=== PATIENT | female | born 1945 | race Caucasian/White ===

== ENCOUNTER → 2016-03-29 | Outpatient (CLI) | payer BC ==
[2016-03-29 12:22] LABS: BASO ABS # 0.05 K/uL (0-0.2); COMPLETE YES; HEMATOCRIT 36.7 % (37-47); IG% 0.2 %; LYMPH % 22.7 %; LYMPH ABS # 1.19 K/uL (1.2-3.4); MEAN CELL VOLUME 94.8 fL (80-100); MEAN CORPUSCULAR HEMOGLOBIN 32.3 pg (25-34); MEAN CORPUSCULAR HGB CONC 34.1 g/dl (32-36); MEAN PLATELET VOLUME 11.4 fL (7.4-10.4); MONO % 7.4 %; NEUT % 65.7 %; PLATELET COUNT 238 K/uL (130-400); RED BLOOD COUNT 3.87 M/uL (4.2-5.4); WHITE BLOOD COUNT 5.25 K/uL (4.8-10.8)
[2016-03-29 13:16] LABS: ALT/SGPT 22 U/L (12-78); AST/SGOT 18 U/L (15-37); BLOOD UREA NITROGEN 18 mg/dl (7-18); BUN/CREATININE RATIO 24.3 (10-20); CALCIUM 8.7 mg/dl (8.5-10.1); CARBON DIOXIDE 24 mmol/L (21-32); CHLORIDE 107 mmol/L (98-107); CREATININE 0.75 mg/dl (0.60-1.20); GLUCOSE 92 mg/dl (70-99); POTASSIUM 3.4 mmol/L (3.5-5.1); SODIUM 141 mmol/L (136-145)
[2016-03-29 13:20] LABS: ALB/GLOB RATIO 1.1 (0.9-2); ALKALINE PHOSPHATASE 103 U/L (45-117); CHOLESTEROL 123 mg/dl (0-200); CHOLESTEROL/HDL RATIO 1.7; HDL CHOLESTEROL 71 mg/dl; LDL CHOLESTEROL CALCULATED 40 mg/dl; TRIGLYCERIDES 59 mg/dl (0-150); VERY LOW DENSITY LIPOPROT CALC 12 mg/dl
--- NOTE | 2016-04-05 06:53 | CODING QUERY MEDICAL NECESSITY ---
SUPPORTING DIAGNOSIS NEEDED A supporting diagnosis is required for the test/procedure performed on this patient in order for us to be reimbursed by the patient's insurance. Please provide a supporting diagnosis for the following test/procedure listed below next to the test name along with your signature. *If there is no additional diagnosis for this patient that would support the following test/procedure please document that below next to the test/procedure. Test(s)/Procedure(s) that require a supporting diagnosis: DOS 03/29 * Vitamin D DIAGNOSIS: Provider Signature: Date: Thank you Shantal Hui Health Information Management Once completed, please kindly fax back to [phone] For questions please call [phone]
== END | disposition home or self-care (01) ==
LOC: C.LABPVFM 08:07
PROVIDERS: ATTEND Family Medicine
DX: Z00.00 Encounter for general adult medical examination without abnormal findings (principal); I10 Essential (primary) hypertension; E78.00 Pure hypercholesterolemia, unspecified; E55.9 Vitamin D deficiency, unspecified

== ENCOUNTER → 2016-04-04 | Outpatient (CLI) | payer BC | END | disposition home or self-care (01) | LOC: C.LABPVFM 09:48 | PROVIDERS: ATTEND Family Medicine | DX: Z11.59 Encounter for screening for other viral diseases (principal) ==

== ENCOUNTER → 2016-06-05 | Outpatient (CLI) | payer BC ==
--- NOTE | 2016-06-06 10:57 | MAMMOGRAPHY REPORT ---
BILATERAL DIGITAL SCREENING MAMMOGRAM WITH CAD: 06/05/2016 CLINICAL HISTORY: Routine screening. Patient has no complaints. TECHNIQUE: Bilateral CC and MLO views were obtained. Current study was also evaluated with a Compu ter Aided Detection (CAD) system. COMPARISON: Comparison is made to exams dated: 06/03/2015 mammogram, 05/28/2013 mammogram, 06/01/2014 ma mmogram, 05/20/2012 mammogram, 05/18/2011 mammogram, and 05/17/2010 mammogram - [facility]. BREAST COMPOSITION: There are scattered areas of fibroglandular density in both breasts. FINDINGS: The parenchymal pattern is unchanged. No developing mass, architectural distortion or clu ster of suspicious microcalcifications is seen in either breast. IMPRESSION: ACR BI-RADS CATEGORY 2: BENIGN There is no mammographic evidence of malignancy. A 1 year screening mammogram is recommended. The p atient will receive written notification of the results. Approximately 10% of breast cancers are not detected with mammography. A negative mammographic repor t should not delay biopsy if a clinically suggestive mass is present. Kayley Hamm M.D. ay/:06/05/2016 16:14:09 Atmospheric Sciences Professor: Suzan SUTTON(Cheryl)(M), [facility] letter sent: Normal 1/2 BI-RADS Code: ACR BI-RADS Category 2: Benign
== END | disposition home or self-care (01) ==
LOC: C.MAMM 08:44
PROVIDERS: ATTEND Family Medicine
DX: Z12.31 Encounter for screening mammogram for malignant neoplasm of breast (principal)

== ENCOUNTER → 2016-09-28 | Outpatient (CLI) | payer BC ==
[2016-09-28 13:44] LABS: ALT/SGPT 22 U/L (12-78); AST/SGOT 20 U/L (15-37); BLOOD UREA NITROGEN 20 mg/dl (7-18); BUN/CREATININE RATIO 26.7 (10-20); CALCIUM 9.1 mg/dl (8.5-10.1); CARBON DIOXIDE 28 mmol/L (21-32); CHLORIDE 105 mmol/L (98-107); CHOLESTEROL 118 mg/dl (0-200); CREATININE 0.74 mg/dl (0.60-1.20); GLUCOSE 85 mg/dl (70-99); POTASSIUM 3.8 mmol/L (3.5-5.1); SODIUM 139 mmol/L (136-145); TRIGLYCERIDES 52 mg/dl (0-150); VERY LOW DENSITY LIPOPROT CALC 10 mg/dl
[2016-09-28 13:47] LABS: ALKALINE PHOSPHATASE 103 U/L (45-117); CHOLESTEROL/HDL RATIO 1.8; HDL CHOLESTEROL 66 mg/dl; LDL CHOLESTEROL CALCULATED 42 mg/dl
== END | disposition home or self-care (01) ==
LOC: C.LABPVFM 08:09
PROVIDERS: ATTEND Family Medicine
DX: I25.10 Atherosclerotic heart disease of native coronary artery without angina pectoris (principal); E78.00 Pure hypercholesterolemia, unspecified; I10 Essential (primary) hypertension; E87.6 Hypokalemia

== ENCOUNTER → 2017-04-04 | Outpatient (CLI) | payer BC ==
[2017-04-04 13:10] LABS: ALBUMIN 3.4 gm/dl (3.4-5.0); ALT/SGPT 20 U/L (12-78); BLOOD UREA NITROGEN 16 mg/dl (7-18); CALCIUM 8.8 mg/dl (8.5-10.1); CARBON DIOXIDE 29 mmol/L (21-32); CHOLESTEROL 126 mg/dl (0-200); GLUCOSE 90 mg/dl (70-99); POTASSIUM 3.7 mmol/L (3.5-5.1); SODIUM 137 mmol/L (136-145)
[2017-04-04 13:13] LABS: ALKALINE PHOSPHATASE 98 U/L (45-117); AST/SGOT 14 U/L (15-37); LDL CHOLESTEROL CALCULATED 52 mg/dl
== END | disposition home or self-care (01) ==
LOC: C.LABPVFM 08:03
PROVIDERS: ATTEND Family Medicine
DX: I10 Essential (primary) hypertension (principal); I34.0 Nonrheumatic mitral (valve) insufficiency; E78.00 Pure hypercholesterolemia, unspecified; I25.10 Atherosclerotic heart disease of native coronary artery without angina pectoris; E87.6 Hypokalemia

== ENCOUNTER → 2017-06-06 | Outpatient (CLI) | payer BC ==
--- NOTE | 2017-06-06 15:36 | MAMMOGRAPHY REPORT ---
BILATERAL DIGITAL SCREENING MAMMOGRAM TOMOSYNTHESIS WITH CAD: 06/06/2017 CLINICAL HISTORY: Routine screening. TECHNIQUE: Breast tomosynthesis in addition to standard 2D mammography was performed. Current study was also evaluated with a Computer Aided Detection (CAD) system. COMPARISON: Comparison is made to exams dated: 06/05/2016 mammogram, 06/03/2015 mammogram, 06/01/2014 ma mmogram, 05/28/2013 mammogram, 05/20/2012 mammogram, and 05/18/2011 mammogram - [facility]. BREAST COMPOSITION: There are scattered areas of fibroglandular density in both breasts. FINDINGS: No suspicious masses, calcifications, or areas of architectural distortion are noted in ei ther breast. There has been no significant interval change compared to prior exams. IMPRESSION: ACR BI-RADS CATEGORY 1: NEGATIVE There is no mammographic evidence of malignancy. A 1 year screening mammogram is recommended. The pa tient will receive written notification of the results. Approximately 10% of breast cancers are not detected with mammography. A negative mammographic report should not delay biopsy if a clinically suggestive mass is present. Jordana Wilcox M.D. ah/:06/06/2017 12:05:26 Instructional Writer: Mario SUTTON(Cheryl)(M), [facility] letter sent: Normal 1/2 BI-RADS Code: ACR BI-RADS Category 1: Negative
== END | disposition home or self-care (01) ==
LOC: C.MAMM 10:32
PROVIDERS: ATTEND Family Medicine
DX: Z12.31 Encounter for screening mammogram for malignant neoplasm of breast (principal)

== ENCOUNTER → 2017-11-08 | Outpatient (CLI) | payer BC ==
[~2017-11-08] MED LIST: BIMA0.01 OPB; CALC600T9 PO; CHOL20009 PO; DOCU100C PO; HYG/25 PO; LISI40TA PO; METO25TA56 PO; OMEG10007 PO; POTA10CA28 PO; SIMV80TA2 PO; TIMO0.2518 OPB
== END | disposition home or self-care (01) ==
LOC: C.MAMM 09:59
PROVIDERS: ATTEND Family Medicine
DX: I25.10 Atherosclerotic heart disease of native coronary artery without angina pectoris (principal); M81.0 Age-related osteoporosis without current pathological fracture

== ENCOUNTER → 2017-11-09 | Day surgery (SDC) | payer BC ==
[2017-11-06 08:36] VITALS: Ht 162.6 cm; Wt 68.2 kg
[~2017-11-09] VITALS: Ht 162.6 cm; Wt 68.2 kg
[~2017-11-09] MED LIST changes: +LIDOCAINE HCL 2% 2 ML VIAL (20MG/ML) ONE; +MIDAZOLAM HCL 1 MG/ML 2ML VIAL ONE; +ONDANSETRON INJ 2 MG/ML 2 ML VIAL ONE; +PROPOFOL IV EMULSION 10 MG/ML 20 ML VIAL ONE; +SODIUM CHLORIDE 0.9% 500ML 500 ML IV ONE
--- NOTE | 2017-11-09 09:18 | Endo History and Physical ---
History & Physical Date of Service: Nov 09, 2017. Chief Complaint: Screening Referring Physician: Dr. Lena Dias History of Present Illness 72 yo CF who presents for screening colonoscopy. Past Surgical History Hx Cardiac Surgery: Yes (HEART CATH/NO STENTS) Hx Internal Defibrillator: No Hx Pacemaker: No Hx Abdominal Surgery: No Hx of Implantable Prosthesis: No Hx Post-Op Nausea and Vomiting: No Hx Cancer Surgery: No Hx Thoracic Surgery: No Hx Orthopedic: No Hx Urinary Tract Surgery: No Family History None Social History Smoking Status: Never Smoker Hx Substance Use: No Hx Alcohol Use: No Allergies Coded Allergies: NO KNOWN DRUG ALLERGIES (Verified Allergy, Unknown, ., 11/06/17) Current Medications Reported Home Medications Medications Dose Route/Sig Max Daily Dose Days Date Category Micro-K Ext Rel (Potassium Chloride) 10 Meq Capcr 10 Meq PO QPM 11/06/17 Reported [place]-3 (Fish Oil) 1 Ea Cap 1 Cap PO QPM 11/06/17 Reported Vitamin D (Cholecalciferol) 2,000 Unit Tab 1 Tab PO QAM 11/06/17 Reported Timoptic 0.25% Oph (Timolol Maleate (Ophth)) 0.25 % Monica 1 Drop OPB BID 11/06/17 Reported Lumigan (Bimatoprost) 0.01 % Monica 1 Drops OPB HS 11/06/17 Reported Zocor (Simvastatin) 80 Mg Tab 80 Mg PO HS 11/06/17 Reported Lopressor (Metoprolol Tartrate) 25 Mg Tab 25 Mg PO BID 11/06/17 Reported Prinivil (Lisinopril) 40 Mg Tab 40 Mg PO HS 11/06/17 Reported [place] (Chlorthalidone) 25 Mg Tab 0.5 Tab PO QAM 11/06/17 Reported Stool Softener (Docusate Sodium) 100 Mg Cap 1 Cap PO QAM 11/06/17 Reported Calcium + D (Calcium Carbonate-Vitamin D) 1 Tab Tab 1 Tab PO QAM 11/06/17 Reported Vital Signs Weight (Kilograms): 68.18 Height (Feet): 5 Height (Inches): 4 Date Time Temp Pulse Resp B/P (MAP) Pulse Ox O2 Delivery O2 Flow Rate FiO2 11/09/17 08:58 36.1 66 16 148/70 (96) 100 Room Air Physical Exam General Appearance: WD/WN, no apparent distress Respiratory/Chest: Auscultation: breath sounds normal Cardiovascular: Heart Auscultation: RRR Abdomen: Bowel Sounds: normal Inspection & Palpation: soft, non-distended, no tenderness, guarding & rebound Assessment and Plan Assessment: 72 yo CF who presents for screening colonoscopy. Plan: Proceed with colonoscopy.
--- NOTE | 2017-11-09 09:51 | Discharge Instructions ---
Endoscopy Patient Instructions Date / Procedure(s) Performed Nov 09, 2017. Colonoscopy Allergy Information Coded Allergies: NO KNOWN DRUG ALLERGIES (Verified Allergy, Unknown, ., 11/06/17) Discharge Date / Findings Nov 09, 2017. Colon polyp Internal hemorrhoids Medication Instructions Stopped Medication(s): Patient was told to take her metoprolol and timolol eye drops this am. OK to resume all medications today as prescribed Reported Home Medications Medications Dose Route/Sig Max Daily Dose Days Date Category Micro-K Ext Rel (Potassium Chloride) 10 Meq Capcr 10 Meq PO QPM 11/06/17 Reported [place]-3 (Fish Oil) 1 Ea Cap 1 Cap PO QPM 11/06/17 Reported Vitamin D (Cholecalciferol) 2,000 Unit Tab 1 Tab PO QAM 11/06/17 Reported Timoptic 0.25% Oph (Timolol Maleate (Ophth)) 0.25 % Monica 1 Drop OPB BID 11/06/17 Reported Lumigan (Bimatoprost) 0.01 % Monica 1 Drops OPB HS 11/06/17 Reported Zocor (Simvastatin) 80 Mg Tab 80 Mg PO HS 11/06/17 Reported Lopressor (Metoprolol Tartrate) 25 Mg Tab 25 Mg PO BID 11/06/17 Reported Prinivil (Lisinopril) 40 Mg Tab 40 Mg PO HS 11/06/17 Reported [place] (Chlorthalidone) 25 Mg Tab 0.5 Tab PO QAM 11/06/17 Reported Stool Softener (Docusate Sodium) 100 Mg Cap 1 Cap PO QAM 11/06/17 Reported Calcium + D (Calcium Carbonate-Vitamin D) 1 Tab Tab 1 Tab PO QAM 11/06/17 Reported Provider Instructions Activity Restrictions - No exercising or heavy lifting for 24 hours. - Do not drink alcohol the day of the procedure. - Do not drive a car or operate machinery until the day after the procedure. - Do not make any important decisions or sign important papers in 24 hours after the procedure. Following Day: - Return to full activity which may include returning to work/school. Diet Start your diet with liquids and light foods (jello, soup, juice, toast). Then eat your usual diet if not nauseated. Treatment For Common After Affects For mild abdominal pain, bloating, or excessive gas: - Rest - Eat lightly - Lie on right side Follow-Up Information Follow-up with Dr. Lena Dias as scheduled Anesthesia Information What You Should Know You have had a procedure that required some medicine to reduce anxiety and discomfort. This treatment is called moderate sedation. After receiving the treatment, you may be sleepy, but you will be able to breathe on your own. The effects of the treatment may last for several hours. Follow these instructions along with Activity/Diet recommendations noted above: * Do NOT do anything where dizziness or clumsiness would be dangerous. * Rest quietly at home today, then you can be up and about tomorrow. * Have a responsible person stay with you the rest of today. * You may have had an I.V. today. If so, you may take the dressing off later today. Recommendations Call your doctor if: * Trouble breathing * Continuous vomiting for more than 24 hours * Temperature above 101 degrees * Severe abdominal pain or bloating * Pain not relieved by pain medicine ordered * There is increased drainage or redness from any incision * A large amount of rectal bleeding greater than 2-3 tablespoons. (If you had a polyp/s removed or have hemorrhoids, a small amount of blood - from the rectum is to be expected.) * You have any unanswered questions or concerns. IN THE EVENT OF A SERIOUS EMERGENCY, GO TO THE NEAREST EMERGENCY ROOM Your discharge instructions were prepared by provider Malick Knowles. Patient Instructions Signature Page Maribell Reveles Patient (or Guardian) Signature/Date: I have read and understand the instructions given to me by my caregivers. Caregiver/RN/Doctor Signature/Date: The above-named patient and/or guardian has received patient instructions on this date. + Original Patient Signature Page (only) stays with chart. Please make copy for patient.
--- NOTE | 2017-11-09 09:57 | GI REPORT ---
Patient Name: Maribell Reveles Procedure Date: 11/09/2017 9:00 AM Date of : 1945 Admit Type: Outpatient Age: 72 Gender: Female Attending MD: Malick Knowles DO Procedure: Colonoscopy Providers: Malick Knowles DO Referring MD: Lena Dias Indications: Screening for colorectal malignant neoplasm Medicines: Monitored Anesthesia Care Complications: No immediate complications. Estimated Blood Loss: Estimated blood loss: none. Procedure: Pre-Anesthesia Assessment: - Prior to the procedure, a History and Physical was performed, and patient medications and allergies were reviewed. The patient's tolerance of previous anesthesia was also reviewed. The risks and benefits of the procedure and the sedation options and risks were discussed with the patient. All questions were answered, and informed consent was obtained. Prior Anticoagulants: The patient has taken no previous anticoagulant or antiplatelet agents. ASA Grade Assessment: II - A patient with mild systemic disease. After reviewing the risks and benefits, the patient was deemed in satisfactory condition to undergo the procedure. After I obtained informed consent, the scope was passed under direct vision. Throughout the procedure, the patient's blood pressure, pulse, and oxygen saturations were monitored continuously. The scope was introduced through the anus and advanced to the terminal ileum. The colonoscopy was performed without difficulty. The patient tolerated the procedure well. The quality of the bowel preparation was good. The terminal ileum, ileocecal valve, appendiceal orifice, and rectum were photographed. Findings: The perianal and digital rectal examinations were normal. A 5 mm polyp was found in the sigmoid colon. The polyp was sessile. The polyp was removed with a cold snare. Resection and retrieval were complete. Non-bleeding internal hemorrhoids were found during retroflexion. The hemorrhoids were small. Impression: - One 5 mm polyp in the sigmoid colon, removed with a cold snare. Resected and retrieved. - Non-bleeding internal hemorrhoids. Recommendation: - Resume previous diet. - Continue present medications. - Repeat colonoscopy for surveillance based on pathology results. - Return to primary care physician as previously scheduled. Malick Knowles DO 11/09/2017 9:56:39 AM This report has been signed electronically. Note Initiated On: 11/09/2017 9:00 AM Number of Addenda: 0 I attest to the content of the Intraoperative Record and orders documented therein, exceptions below {[id number]}
--- NOTE | 2017-11-09 10:06 | Anesthesiology Progress Note ---
Anesthesia Post Op Note Date & Time Nov 09, 2017 at 10:06 Vital Signs Pain Intensity: 0 Vital Signs Past 12 Hours Date Time Temp Pulse Resp B/P (MAP) Pulse Ox O2 Delivery O2 Flow Rate FiO2 11/09/17 09:49 65 16 96/51 (66) 98 Room Air 11/09/17 08:58 36.1 66 16 148/70 (96) 100 Room Air Notes Mental Status: alert / awake / arousable, participated in evaluation Pt Amnestic to Procedure: Yes Nausea / Vomiting: adequately controlled Pain: adequately controlled Airway Patency, RR, SpO2: stable & adequate BP & HR: stable & adequate Hydration State: stable & adequate Anesthetic Complications: no major complications apparent
[2017-11-09 10:19] VITALS: BP 132/72; PULSE 63; O2SAT 98
== END | disposition home or self-care (01) ==
LOC: C.GI 08:32
PROVIDERS: ATTEND Internal Medicine
DX: Z12.11 Encounter for screening for malignant neoplasm of colon (principal); D12.5 Benign neoplasm of sigmoid colon; K64.8 Other hemorrhoids; H40.9 Unspecified glaucoma

== ENCOUNTER 2019-11-02 07:16 | Inpatient (IN) ==
[2019-11-02] MEDS ORDERED: NITROGLYCERIN SL 0.4 MG/TAB TAB SL PRN (07:31)
--- NOTE | 2019-11-02 07:35 | Emergency Department Note ---
History of Present Illness General Chief complaint: Respiratory Problems Stated complaint: HARD TO BREATHE Time Seen by Provider: 11/02/19 07:25 Source: patient History of Present Illness Provider complaint: chest pain Onset (ago): day(s) 1 Location: chest Severity: mild Pain Consistency: + intermittent Maximum Pain Intensity: 2 Current Pain Intensity: 2 Quality: + aching Relieved By: + immobilization and + medication (Nitro) Exacerbated By: + movement Associated symptoms: + denies other symptoms; no diaphoresis, no fever/chills, no loss of appetite, no nausea/vomiting and no shortness of breath Treatments prior to arrival: none This is a 74-year-old female who presents emergency department complaining of shortness of breath as well as chest pain that gets worse when the patient walks. She reports resting makes the pain better. She describes the pain as a pressure sensation that radiates into her left arm. She has no other complaints. The patient reports she was just started on Lasix and also takes Eliquis. Home Medications Home Medications Medication Instructions Recorded Confirmed Type nitroglycerin 0.4 mg sublingual 0.4 mg SL UD PRN #25 tab 09/09/18 11/02/19 History tablet timolol maleate 0.25 % eye drops 1 drp OPB QAM ml 10/01/18 11/02/19 History apixaban [Eliquis] 5 mg PO BID 03/22/19 11/02/19 History metoprolol tartrate 25 mg PO QAM 03/22/19 11/02/19 History bimatoprost [Lumigan] 1 drp OPB DAILY@2300 11/02/19 11/02/19 History calcium carbonate-vitamin D3 1 tab PO QAM 11/02/19 11/02/19 History [Calcium 500 + D] docusate sodium [Colace] 100 mg PO QAM 11/02/19 11/02/19 History furosemide 20 mg PO MOTUWETHFR 11/02/19 11/02/19 History lisinopril 40 mg PO DAILY@1700 11/02/19 11/02/19 History potassium chloride 20 meq PO HS 11/02/19 11/02/19 History simvastatin 80 mg PO HS 11/02/19 11/02/19 History Allergies Allergy/AdvReac Type Severity Reaction Status Date / Time No Known Drug Allergies Allergy Unknown . Verified 11/02/19 07:53 Past Med/Surg History Medical History Atrial fibrillation (Chronic) CAD S/P percutaneous coronary angioplasty (Chronic) Coronary artery disease of bypass graft of [place] heart with stable angina pectoris Hypercholesterolemia (Chronic) Hypertension (Chronic) Hypokalemia (Chronic) Mitral regurgitation (Acute) Family History Mother Heart disease Hypertension Father Heart disease Hypertension Denies family history of Ovarian cancer Prostate cancer Myocardial infarction Breast cancer Colorectal cancer Social History Smoking Status: Never smoker Hx Alcohol Use: No Hx Substance Use: No Preferred Language: Sudanese Communication Ability: Effective Public Space Attendant Required: No Beliefs That Will Affect Care: None marital status: Current Living Situation: Family Current Living Situation Comment: LIVES WITH SON current occupational status: retired Other Information That Helps Us Care for You: No Feels Safe at Home: Yes Safety Concerns: Feels Safe At This Time Dental Care, Regularly: Yes Seatbelt Use: always Review of Systems A total of 10 systems reviewed and were otherwise negative Physical Exam Vital Signs Vital Signs - 24 hr 11/02/19 07:16 11/02/19 07:20 11/02/19 07:32 Temperature 36.9 C Temperature Source Oral Pulse Rate 128 H Pulse Rate from SpO2 Sensor Respiratory Rate 20 Respiratory Effort / Characteristics Non-Labored Respiratory Depth Normal Respiratory Pattern Blood Pressure 143/86 H Blood Pressure Mean 105 Pulse Oximetry 96 97 96 Oxygen Delivery Method Room Air Room Air Room Air Sepsis Recent Fever Within 48 Hours No Sepsis New/Unexplained Change in Mental Status No Sepsis Action Taken by Nursing No Action Required 11/02/19 07:33 11/02/19 07:45 11/02/19 07:48 Temperature Temperature Source Pulse Rate 113 H 123 H Pulse Rate from SpO2 Sensor Respiratory Rate 23 Respiratory Effort / Characteristics Non-Labored Respiratory Depth Normal Respiratory Pattern Regular Blood Pressure 124/101 H Blood Pressure Mean Pulse Oximetry Oxygen Delivery Method Room Air Sepsis Recent Fever Within 48 Hours Sepsis New/Unexplained Change in Mental Status Sepsis Action Taken by Nursing 11/02/19 07:49 11/02/19 07:50 11/02/19 08:00 Temperature Temperature Source Pulse Rate 110 H 124 H 105 H Pulse Rate from SpO2 Sensor 108 H 114 H 109 H Respiratory Rate 21 21 25 H Respiratory Effort / Characteristics Respiratory Depth Respiratory Pattern Blood Pressure 124/101 H 130/117 H 129/82 Blood Pressure Mean 107 125 102 Pulse Oximetry 97 97 96 Oxygen Delivery Method Sepsis Recent Fever Within 48 Hours Sepsis New/Unexplained Change in Mental Status Sepsis Action Taken by Nursing 11/02/19 08:01 11/02/19 08:15 11/02/19 08:30 Temperature Temperature Source Pulse Rate 117 H 91 H 92 H Pulse Rate from SpO2 Sensor 106 H 106 H 94 H Respiratory Rate 25 H 20 16 Respiratory Effort / Characteristics Respiratory Depth Respiratory Pattern Blood Pressure 128/92 Blood Pressure Mean 98 Pulse Oximetry 96 97 97 Oxygen Delivery Method Sepsis Recent Fever Within 48 Hours Sepsis New/Unexplained Change in Mental Status Sepsis Action Taken by Nursing 11/02/19 08:31 Temperature Temperature Source Pulse Rate 108 H Pulse Rate from SpO2 Sensor 99 H Respiratory Rate 18 Respiratory Effort / Characteristics Respiratory Depth Respiratory Pattern Blood Pressure Blood Pressure Mean Pulse Oximetry 97 Oxygen Delivery Method Sepsis Recent Fever Within 48 Hours Sepsis New/Unexplained Change in Mental Status Sepsis Action Taken by Nursing VITAL SIGNS - Vital signs and nursing notes were reviewed. GENERAL - 74-year-old female appearing stated age who is in no acute distress. Communicates well with provider and answers questions appropriately. SKIN - Without rashes. HEAD - NC/AT. EYES - PERRL with EOMI bilaterally. Sclera anicteric. Palpebral conjunctiva pink and moist with no injection noted. EARS - No deformities of external structures noted on gross examination bilaterally. No pain elicited with palpation of the tragus bilaterally. External auditory canals without discharge or otorrhea. Tympanic membranes pearly angeles without retraction or bulging. No fluid or purulent material visualized behind the TM. Handle of malleus, umbo, cone of light, pars tensa/flaccid all easily visualized. NOSE - Midline and without cyanosis. No epistaxis or purulent drainage noted. S eptum midline without deviation or septal hematoma noted. MOUTH/OROPHARYNX - Without perioral cyanosis. Buccal mucosa pink and moist and without leukoplakia. Tongue midline with equal elevation of palate bilaterally. No tonsillar hypertrophy, erythema, or exudates noted. dentition noted. NECK - Neck with FROM. Supple to palpation. lymphadenopathy noted. No nuchal rigidity. LUNGS - Chest wall symmetric without accessory muscle use, intercostals retractions, or central cyanosis. Normal vesicular breath sounds CTA B/L. No wheezes, rales, or rhonchi appreciated. CARDIAC - RRR with S1/S2. No murmur, rubs, or gallops appreciated. ABDOMEN - Abdominal contour without pulsations or visible masses. BS normoactive all four quadrants. No tenderness, palpable masses, hepatosplenomegaly, or ascites noted. EXTREMITIES - No clubbing or peripheral cyanosis. No pretibial edema present. +3/5 radial, posterior tibial, and dorsalis pedis pulses palpated throughout. +5/5 strength noted in UE/LE bilaterally. NEUROLOGIC - Cranial nerves II through XII grossly intact. Sensory intact to light touch throughout. Patellar reflexes +2/4. PSYCH - A&Ox3 and cooperates fully with examiner. Pt is very pleasant and interacts well with examiner. Course Administered Medications Docusate Sodium (Colace) 100 mg PO [facility] Stop: 12/02/19 09:59 Last Admin: 11/02/19 11:24 Dose: Not Given Documented by: [id number] Multivitamins/Minerals (Caltrate Plus) 1 tab PO [facility] Stop: 12/02/19 09:59 Last Admin: 11/02/19 11:23 Dose: Not Given Documented by: [id number] Nitroglycerin (Nitro-Bid 2%) 1 inch EXT Q6H [facility] Stop: 12/02/19 08:14 Last Admin: 11/02/19 08:20 Dose: 1 inch Documented by: [id number] Timolol Maleate (Timoptic-Xe 0.5% Oph) 1 drops OPB [facility] Stop: 12/02/19 09:59 Last Admin: 11/02/19 11:24 Dose: Not Given Documented by: [id number] Discontinued Medications Furosemide (Lasix) 40 mg IV NOW STA Stop: 11/02/19 08:29 Last Admin: 11/02/19 09:21 Dose: 40 mg Documented by: [id number] Magnesium Sulfate/Dextrose (Magnesium Sulfate / D5w) 1 gm in 100 mls @ 200 mls/hr IV Q30M [facility] Stop: 11/02/19 08:35 Last Infusion: 11/02/19 08:50 Dose: 0 mls/hr Documented by: [id number] Admin: 11/02/19 08:20 Dose: 200 mls/hr Documented by: [id number] Infusion: 11/02/19 08:19 Dose: 200 mls/hr Documented by: [id number] Admin: 11/02/19 07:49 Dose: 200 mls/hr Documented by: [id number] Magnesium Sulfate/Dextrose (Magnesium Sulfate / D5w) 1 gm in 100 mls @ 200 mls/hr IV Q30M [facility] Stop: 11/02/19 08:36 Last Infusion: 11/02/19 10:01 Dose: 0 mls/hr Documented by: [id number] Admin: 11/02/19 09:20 Dose: 200 mls/hr Documented by: [id number] Infusion: 11/02/19 09:20 Dose: 200 mls/hr Documented by: [id number] Admin: 11/02/19 08:50 Dose: 200 mls/hr Documented by: [id number] Metoprolol Tartrate (Lopressor) 5 mg IV Q5M PRN PRN Reason: Tachycardia Stop: 12/02/19 07:35 Last Admin: 11/02/19 07:48 Dose: 5 mg Documented by: [id number] Metoprolol Tartrate (Lopressor) 50 mg PO QAM [facility] Stop: 12/02/19 09:59 Last Admin: 11/02/19 11:02 Dose: Not Given Documented by: [id number] Nitroglycerin (Nitrostat) 0.4 mg SL UD PRN PRN Reason: Chest Pain Stop: 12/02/19 07:30 Last Admin: 11/02/19 07:48 Dose: 0.4 mg Documented by: [id number] Medical Decision Making Differential Diagnosis Cardiac ischemia, aortic dissection, pulmonary embolism, pneumothorax, pneumonia, pericarditis, myocarditis, esophageal rupture, GERD, cholecystitis, pancreatitis, musculoskeletal, as well as other pathologies. Medical Records Attestation: I reviewed the patient's medical records. Home Medications Current Medication List: was personally reviewed by me Laboratory Data Attestation: I reviewed the patient's lab results. Result diagrams: 11/02/19 07:40 11/02/19 07:40 Lab Results 11/02/19 11/02/19 11/02/19 Range/Units 07:40 07:40 07:40 WBC 8.59 (4.8-10.8) K/uL RBC 3.70 L (4.2-5.4) M/uL Hgb 11.0 L (12.0-16.0) g/dL Hct 33.5 L (37-47) % MCV 90.5 (80-100) fL MCH 29.7 (25-34) pg MCHC 32.8 (32-36) g/dL RDW Std Deviation 42.2 (36.4-46.3) fL RDW Coeff of Alyssa 12.8 (11.5-14.5) % Plt Count 315 (130-400) K/uL MPV 11.0 H (7.4-10.4) fL Immature Gran % (Auto) 0.1 % Neut % (Auto) 79.2 % Lymph % (Auto) 13.4 % Dewitt % (Auto) 5.5 % Eos % (Auto) 1.3 % Baso % (Auto) 0.5 % Neut # (Auto) 6.81 H (1.4-6.5) K/uL Lymph # (Auto) 1.15 L (1.2-3.4) K/uL Dewitt # (Auto) 0.47 (0.11-0.59) K/uL Eos # (Auto) 0.11 (0-0.5) K/uL Baso # (Auto) 0.04 (0-0.2) K/uL Immature Gran # (Auto) 0.01 (0.00-0.02) K/uL PT 11.4 (9.0-12.0) Seconds INR 1.1 (0.9-1.1) APTT 28.9 (21.0-31.0) Seconds PTT Ratio 1.0 Sodium 139 (136-145) mmol/L Potassium 4.6 (3.5-5.1) mmol/L Chloride 109 H (98-107) mmol/L Carbon Dioxide 24 (21-32) mmol/L Anion Gap 5.0 (3-11) BUN 27 H (7-18) mg/dl Creatinine 0.98 (0.6-1.2) mg/dl Est Cr Clr Drug Dosing 47.7 ml/min Est GFR ( Amer) 65.9 Est GFR (Non-Af Amer) 56.8 BUN/Creatinine Ratio 27.0 H (10-20) Glucose 111 H (70-99) mg/dl Calcium 9.2 (8.5-10.1) mg/dl Total Bilirubin 0.7 (0.2-1) mg/dl AST 35 (15-37) U/L ALT 36 (12-78) U/L Alkaline Phosphatase 90 (45-117) U/L Total Creatine Kinase 69 (26-192) U/L CK-MB (CK-2) 1.8 (0.5-3.6) ng/ml CK/CKMB % Calc 2.6 (0-3.0) Troponin I 0.048 H* (0-0.045) ng/ml NT-Pro-B Natriuret Pep (0-900) pg/ml Total Protein 6.9 (6.4-8.2) gm/dl Albumin 3.5 (3.4-5.0) gm/dl Globulin 3.4 (2.5-4.0) gm/dl Albumin/Globulin Ratio 1.0 (0.9-2) Lipase 141 (73-393) U/L 11/02/19 Range/Units 07:40 WBC (4.8-10.8) K/uL RBC (4.2-5.4) M/uL Hgb (12.0-16.0) g/dL Hct (37-47) % MCV (80-100) fL MCH (25-34) pg MCHC (32-36) g/dL RDW Std Deviation (36.4-46.3) fL RDW Coeff of Alyssa (11.5-14.5) % Plt Count (130-400) K/uL MPV (7.4-10.4) fL Immature Gran % (Auto) % Neut % (Auto) % Lymph % (Auto) % Dewitt % (Auto) % Eos % (Auto) % Baso % (Auto) % Neut # (Auto) (1.4-6.5) K/uL Lymph # (Auto) (1.2-3.4) K/uL Dewitt # (Auto) (0.11-0.59) K/uL Eos # (Auto) (0-0.5) K/uL Baso # (Auto) (0-0.2) K/uL Immature Gran # (Auto) (0.00-0.02) K/uL PT (9.0-12.0) Seconds INR (0.9-1.1) APTT (21.0-31.0) Seconds PTT Ratio Sodium (136-145) mmol/L Potassium (3.5-5.1) mmol/L Chloride (98-107) mmol/L Carbon Dioxide (21-32) mmol/L Anion Gap (3-11) BUN (7-18) mg/dl Creatinine (0.6-1.2) mg/dl Est Cr Clr Drug Dosing ml/min Est GFR ( Amer) Est GFR (Non-Af Amer) BUN/Creatinine Ratio (10-20) Glucose (70-99) mg/dl Calcium (8.5-10.1) mg/dl Total Bilirubin (0.2-1) mg/dl AST (15-37) U/L ALT (12-78) U/L Alkaline Phosphatase (45-117) U/L Total Creatine Kinase (26-192) U/L CK-MB (CK-2) (0.5-3.6) ng/ml CK/CKMB % Calc (0-3.0) Troponin I (0-0.045) ng/ml NT-Pro-B Natriuret Pep 3524 H (0-900) pg/ml Total Protein (6.4-8.2) gm/dl Albumin (3.4-5.0) gm/dl Globulin (2.5-4.0) gm/dl Albumin/Globulin Ratio (0.9-2) Lipase (73-393) U/L Imaging Data Radiologist's Impression: [facility], [place] [phone] XRay Report Patient: DAVONTE ABREU EAdmit Date: 11/02/19 MR#: [id number] [facility] Acct ID:[id number]: Date: [address] [place] [address] Zip: [place] [address] Age: 74Location: ED Sex: F Room/Bed: Att Phy:Diagnosis: HARD TO BREATHE Emiliana Phy: Pascale Guevara MDService Date: 11/02/19 Fam Phy:Interpreting Phy: Jean Claude Arroyo MD Admit Phy: Ordering Phy: Joel Eduardo MD cc: ~ XR chest 1V portable CLINICAL HISTORY: Chest Pain dyspnea COMPARISON STUDY: 03/22/2019 Findings: Moderate cardiomegaly. Prior median sternotomy. Prominent pulmonary vasculature. IMPRESSION: Congestive heart failure ACT 112: Negative or not required by law. The above report was generated using voice recognition software. It may contain grammatical, syntax or spelling errors. Electronically signed by: Jean Claude Arroyo M.D. 11/02/2019 8:26 AM Dictated: 11/02/19823 Transcribed: 11/02/19823 ECG Data Attestation: I personally reviewed and interpreted this ECG as follows: Indication: + chest pain Rate (beats per minute): 115 Rhythm: + atrial fibrillation (w RVR) ECG [place]: + Left axis deviation ECG ST segments: no ST depression and no ST elevation ECG Findings: + Q waves (Septal) Comparison ECG Date: from (03/22/2019) Change: the following changes noted (afib has replaced NSR) MDM Narrative This is a 74-year-old female who presents emergency department complaining of chest pain. Patient was given nitro here in the emergency department with improvement in her symptoms. She does appear to be slightly volume overloaded on chest x-ray therefore he was started on Lasix. She was also given 4 g of magnesium here in the emergency department. She is on Eliquis. Her troponin was found to be elevated I did discuss the case with the hospitalist service who did agree to admit the patient. Patient and family are in agreement with treatment plan. Patient was seen and evaluated as above in room A10. Review was performed of nursing notes and vital signs. I did review pertinent previous visits and patient history. After obtaining a thorough history and physical examination the above work up was performed. An order was placed for continuous cardiac monitoring. The monitor shows a rate of 106 with Atrial Fib rhythm. The patient was evaluated during the global COVID-19 pandemic, and that diagnosis was suspected/considered upon their initial presentation. Their evaluation, treatment and testing was consistent with current guidelines for patients who present with complaints or symptoms that may be related to COVID- 19. Impression & Plan Chest pain, Acute heart failure Discharge Plan Visit Data *Final* Discharge Date/Time: 11/02/19 09:56 Chief Complaint: Respiratory Problems Stated Complaint: HARD TO BREATHE ED Provider: Joel Eduardo Discharge Problem: Chest pain, Acute heart failure Patient Disposition: Admitted As Inpatient Discharge Instructions Interventions: ED Discharge Assessment Last Done: 11/02/19 09:56 Discharge Problem: Chest pain Qualifiers: Chest pain type: unspecified Qualified Code(s): R07.9 - Chest pain, unspecified Acute heart failure Qualifiers: Heart failure type: unspecified Qualified Code(s): I50.9 - Heart failure, unspecified
[2019-11-02] MEDS ORDERED: METOPROLOL TARTRATE 1 MG/ML VIAL IV PRN ×2 (07:36→10:20)
[2019-11-02] MEDS: MAGNESIUM SULFATE / D5W 1 GM/100 ML BAG IV SCH ×4 (07:49→09:20)
[2019-11-02 07:53] LABS: Basophils # (auto) 0.04 K/uL (0-0.2); Basophils % (auto) 0.5 %; Eosinophils # (auto) 0.11 K/uL (0-0.5); Eosinophils % (auto) 1.3 %; Hematocrit (blood only) 33.5 % (37-47); Immature Granulocytes # (auto) 0.01 K/uL (0.00-0.02); Immature Granulocytes % (auto) 0.1 %; Lymphocytes # (auto) 1.15 K/uL (1.2-3.4); Lymphocytes % (auto) 13.4 %; Mean Corpuscular Hemoglobin 29.7 pg (25-34); Mean Corpuscular Hgb Conc 32.8 g/dL (32-36); Mean Corpuscular Volume 90.5 fL (80-100); Monocytes # (auto) 0.47 K/uL (0.11-0.59); Monocytes % (auto) 5.5 %; Neutrophils # (auto) 6.81 K/uL (1.4-6.5); Neutrophils % (auto) 79.2 %; Platelet Count 315 K/uL (130-400); RDW Coefficient of Variation 12.8 % (11.5-14.5); RDW Standard Deviation 42.2 fL (36.4-46.3); White Blood Count 8.59 K/uL (4.8-10.8)
[2019-11-02 08:04] LABS: INR 1.1 (0.9-1.1); Partial Thromboplastin Time 28.9 Seconds (21.0-31.0); Prothrombin Time 11.4 Seconds (9.0-12.0)
[2019-11-02 08:09] LABS: Albumin Level 3.5 gm/dl (3.4-5.0); Calcium 9.2 mg/dl (8.5-10.1); Creatinine Clr Calc Pharmacy 47.7 ml/min; Est GFR (African American) 65.9; Est GFR (Non-African American) 56.8; Potassium 4.6 mmol/L (3.5-5.1)
[2019-11-02 08:17] LABS: Bilirubin,Total 0.7 mg/dl (0.2-1); Creatine Kinase MB 1.8 ng/ml (0.5-3.6); Globulin 3.4 gm/dl (2.5-4.0); Total Protein 6.9 gm/dl (6.4-8.2); Troponin I 0.048 ng/ml (0-0.045)
[2019-11-02] MEDS: NITROGLYCERIN 2% OINTMENT 30GM TUBE EXT SCH ×3 (08:20→21:09)
--- NOTE | 2019-11-02 08:27 | XRay Report ---
XR chest 1V portable CLINICAL HISTORY: Chest Pain dyspnea COMPARISON STUDY: 03/22/2019 Findings: Moderate cardiomegaly. Prior median sternotomy. Prominent pulmonary vasculature. IMPRESSION: Congestive heart failure ACT 112: Negative or not required by law. The above report was generated using voice recognition software. It may contain grammatical, syntax or spelling errors. Electronically signed by: Jean Claude Arroyo M.D. 11/02/2019 8:26 AM
[2019-11-02] MEDS ORDERED: FUROSEMIDE 40 MG/4 ML VIAL IV STA (08:28)
[2019-11-02] MEDS ORDERED: ONDANSETRON INJ 2 MG/ML 2 ML VIAL IV PRN (10:00)
[2019-11-02] MEDS ORDERED: METOPROLOL TARTRATE 50 MG TAB PO SCH (10:00)
--- NOTE | 2019-11-02 10:22 | History & Physical Report ---
Date of Service November 02, 2019 Assessment & Plan (1) Acute heart failure: pulmonary edema on CXR, suspect it is due to afib with RVR rales in bases on exam responding to Lasix 40mg IV that was given in the ED will revisit this afternoon to see if she needs another dose check echo unsure if this is preserved EF or reduced EF, follow up echo (2) Chest pain: pressure started yesterday, correlated with palpitations troponin is only 0.04, no ischemic changes on EKG suspect patient was experiencing some rapid heart rates with afib, causing some angina will repeat troponin at 1200 and [address] Rivera to see today continue Toprol 100mg daily, Eliquis BID aspirin 81mg daily nitro paste (3) Atrial fibrillation: chronic, now with some RVR continue Toprol 100mg daily (she took this morning around 6am) and use Lopressor 5mg IV q4 PRN for HR > [address] on Eliquis BID consult Dr Rivera for recommendations (4) Hypertension: continue Toprol, Lisinopril (5) Mitral regurgitation: (6) Hypercholesterolemia: Simvastatin Admission and Anticipated Discharge Date Admission Date: November 02, 2019 History of Present Illness Chief Complaint: I had chest pressure Primary Care Provider: Pascale Guevara MD 74 yo female with history of CAD with CABG x 3, chronic atrial fibrillation, hypertension, dyslipidemia and peripheral edema who presented to the ED this morning with complaints of chest pressure at rest. She describes the sensation as more of a pressure, holds her hand to her chest, she says it started yesterday evening and persisted most of the night. She also experienced some palpitations and fluttering, started yesterday and she has a history of atrial fibrillation. She says she normally does not get chest pressure, denies getting exertional chest pressure. She says she does not feel short of breath but her son at the bedside says she definitely is more short of breath yesterday and today. She took all of her medications this morning including Toprol 100mg. She says she was started on Lasix 20mg on Mon-Fri by Jean Claude Corona a week ago. She says she sees an increase in urine output in the morning but her leg edema has not improved. She does not weigh herself everyday, only sporadic so she is unsure of any weight gain or loss over past week. She has not had an echo since last year. She denies any fever/chills, cough, abdominal symptoms. She says she feels better since she had nitro paste and Lasix 40mg IV in the ED. CXR showed pulmonary edema, EKG with Afib and no ischemic changes. Troponin was 0.04 and Cr was 0.98, K 4.6, BNP 3524. I discussed with Dr. Eduardo in the ED and I let Dr. Rivera know about the admission since [facility] as outpatient. Allergies Allergy/AdvReac Type Severity Reaction Status Date / Time No Known Drug Allergies Allergy Unknown . Verified 11/02/19 07:53 Home Medications Home Medications Medication Instructions Recorded Confirmed Type nitroglycerin 0.4 mg sublingual 0.4 mg SL UD PRN #25 tab 09/09/18 11/02/19 History tablet timolol maleate 0.25 % eye drops 1 drp OPB QAM ml 10/01/18 11/02/19 History apixaban [Eliquis] 5 mg PO BID 03/22/19 11/02/19 History metoprolol tartrate 25 mg PO QAM 03/22/19 11/02/19 History bimatoprost [Lumigan] 1 drp OPB DAILY@2300 11/02/19 11/02/19 History calcium carbonate-vitamin D3 1 tab PO QAM 11/02/19 11/02/19 History [Calcium 500 + D] docusate sodium [Colace] 100 mg PO QAM 11/02/19 11/02/19 History furosemide 20 mg PO MOTUWETHFR 11/02/19 11/02/19 History lisinopril 40 mg PO DAILY@1700 11/02/19 11/02/19 History potassium chloride 20 meq PO HS 11/02/19 11/02/19 History simvastatin 80 mg PO HS 11/02/19 11/02/19 History Past Med/Surg History Medical History (Updated 11/02/19 @ 10:42 by Ren Sagastume DO) Atrial fibrillation (Chronic) CAD S/P percutaneous coronary angioplasty (Chronic) Coronary artery disease of bypass graft of [place] heart with stable angina pectoris Hypercholesterolemia (Chronic) Hypertension (Chronic) Hypokalemia (Chronic) Mitral regurgitation (Acute) Family History Mother Heart disease Hypertension Father Heart disease Hypertension Denies family history of Ovarian cancer Prostate cancer Myocardial infarction Breast cancer Colorectal cancer Social History Smoking Status: Never smoker Hx Alcohol Use: No Hx Substance Use: No Preferred Language: Kosovan Communication Ability: Effective Chief Dispatcher Required: No Beliefs That Will Affect Care: None marital status: Current Living Situation: Family Current Living Situation Comment: LIVES WITH SON current occupational status: retired Other Information That Helps Us Care for You: No Feels Safe at Home: Yes Safety Concerns: Feels Safe At This Time Dental Care, Regularly: Yes Seatbelt Use: always Review of Systems Review of Systems: All systems reviewed & are unremarkable except as noted in Subjective Physical Exam Constitutional: well developed, well nourished and cooperative; no acute distress Eyes: PERRL, conjunctivae normal, anicteric sclerae ENMT: external ear and nose normal, oropharynx normal Neck: trachea midline, no thyromegaly Respiratory: normal respiratory effort; no respiratory distress and no labored breathing Auscultation: + rales (bases); no crackles, no rhonchi and no wheezes Cardiovascular: Rate/Rhythm: + tachycardic and + irregularly irregular Heart Sounds: normal S1 and normal S2; no murmur Vessels: no JVD Extremities: + edema (mid shins bilaterally); + abnormal capillary refill Gastrointestinal (Abdomen): normal bowel sounds, soft, nontender, no hepatosplenomegaly Musculoskeletal: no cyanosis or clubbing, extremities motor strength 5/5 Skin: no rashes, warm and dry Neurologic: patellar DTR's 2+ bilat, sensation intact and PERRL, EOMI, accommodation nl, no face palsy, no dysarthria Psychiatric: A+Ox3, euthymic affect Lymphatic: no cervical or axillary lymphadenopathy Results & Data Results & Data ([facility]) Vital Signs (Past 12 Hours) Vital Signs Temp Pulse Resp BP Pulse Ox 11/02/19 09:45 87 18 97 11/02/19 09:31 96 H 21 97 11/02/19 09:30 99 H 19 117/80 96 11/02/19 09:15 95 H 19 97 11/02/19 09:01 90 18 97 11/02/19 09:00 100 H 16 130/80 97 11/02/19 08:45 87 22 97 11/02/19 08:31 108 H 18 97 11/02/19 08:30 92 H 16 128/92 97 11/02/19 08:15 91 H 20 97 11/02/19 08:01 117 H 25 H 96 11/02/19 08:00 105 H 25 H 129/82 96 11/02/19 07:50 124 H 21 130/117 H 97 11/02/19 07:49 110 H 21 124/101 H 97 11/02/19 07:48 123 H 124/101 H 11/02/19 07:45 113 H 23 11/02/19 07:32 96 11/02/19 07:20 36.9 C 128 H 20 143/86 H 97 11/02/19 07:16 96 Laboratory Results Laboratory Results - last 24 hr 11/02/19 11/02/19 11/02/19 07:40 07:40 07:40 WBC 8.59 RBC 3.70 L Hgb 11.0 L Hct 33.5 L MCV 90.5 MCH 29.7 MCHC 32.8 RDW Std Deviation 42.2 RDW Coeff of Alyssa 12.8 Plt Count 315 MPV 11.0 H Immature Gran % (Auto) 0.1 Neut % (Auto) 79.2 Lymph % (Auto) 13.4 Andrew % (Auto) 5.5 Eos % (Auto) 1.3 Baso % (Auto) 0.5 Neut # (Auto) 6.81 H Lymph # (Auto) 1.15 L Andrew # (Auto) 0.47 Eos # (Auto) 0.11 Baso # (Auto) 0.04 Immature Gran # (Auto) 0.01 PT 11.4 INR 1.1 APTT 28.9 PTT Ratio 1.0 Sodium 139 Potassium 4.6 Chloride 109 H Carbon Dioxide 24 Anion Gap 5.0 BUN 27 H Creatinine 0.98 Est Cr Clr Drug Dosing 47.7 Est GFR ( Amer) 65.9 Est GFR (Non-Af Amer) 56.8 BUN/Creatinine Ratio 27.0 H Glucose 111 H Calcium 9.2 Total Bilirubin 0.7 AST 35 ALT 36 Alkaline Phosphatase 90 Total Creatine Kinase 69 CK-MB (CK-2) 1.8 CK/CKMB % Calc 2.6 Troponin I 0.048 H* NT-Pro-B Natriuret Pep Total Protein 6.9 Albumin 3.5 Globulin 3.4 Albumin/Globulin Ratio 1.0 Lipase 141 11/02/19 07:40 WBC RBC Hgb Hct MCV MCH MCHC RDW Std Deviation RDW Coeff of Alyssa Plt Count MPV Immature Gran % (Auto) Neut % (Auto) Lymph % (Auto) Andrew % (Auto) Eos % (Auto) Baso % (Auto) Neut # (Auto) Lymph # (Auto) Andrew # (Auto) Eos # (Auto) Baso # (Auto) Immature Gran # (Auto) PT INR APTT PTT Ratio Sodium Potassium Chloride Carbon Dioxide Anion Gap BUN Creatinine Est Cr Clr Drug Dosing Est GFR ( Amer) Est GFR (Non-Af Amer) BUN/Creatinine Ratio Glucose Calcium Total Bilirubin AST ALT Alkaline Phosphatase Total Creatine Kinase CK-MB (CK-2) CK/CKMB % Calc Troponin I NT-Pro-B Natriuret Pep 3524 H Total Protein Albumin Globulin Albumin/Globulin Ratio Lipase Diagnostic Findings XR chest 1V portable CLINICAL HISTORY: Chest Pain dyspnea COMPARISON STUDY: 03/22/2019 Findings: Moderate cardiomegaly. Prior median sternotomy. Prominent pulmonary vasculature. IMPRESSION: Congestive heart failure Medications Administered Current Inpatient Medications Acetaminophen (Tylenol) 650 mg PO Q4H PRN PRN Reason: Pain or Fever Stop: 12/02/19 09:59 Apixaban (Eliquis) 5 mg PO BID [facility] Stop: 12/02/19 20:59 Bimatoprost (Lumigan 0.01%) 1 drops OP DAILY@2300 [facility] Stop: 12/02/19 22:59 [facility] [place]: 12/02/19 09:59 Lisinopril (Zestril) 40 mg PO DAILY@1700 [facility] Stop: 12/02/19 16:59 Metoprolol Succinate (Toprol Xl) 100 mg PO QAM [facility] Stop: 12/03/19 08:59 Metoprolol Tartrate (Lopressor) 5 mg IV Q4 PRN PRN Reason: tachycardia Stop: 12/02/19 11:59 Multivitamins/Minerals (Caltrate Plus) 1 tab PO QAM [facility] Stop: 12/02/19 09:59 Nitroglycerin (Nitro-Bid 2%) 1 inch EXT Q6H [facility] Stop: 12/02/19 08:14 Last Admin: 11/02/19 08:20 Dose: 1 inch Documented by: Ondansetron HCl (Zofran) 4 mg IV Q6H PRN PRN Reason: Nausea Stop: 12/02/19 09:59 Simvastatin (Zocor) 80 mg PO HS [facility] Stop: 12/02/19 20:59 Timolol Maleate (Timoptic-Xe 0.5% Oph) 1 drops OPB QAM [facility] Stop: 12/02/19 09:59 ECG Indication: chest pain Rhythm: atrial fibrillation Findings: no acute ischemic change Code Status & VTE Plan VTE Prophylaxis Plan VTE Prophylaxis will be ordered: Yes PG Care Time/CCT Total # of Minutes Spent Total Time Spent with Patient: Total time spent is greater than 50% in coordination of care (as documented) at patient's floor/unit and/or counseling patient: Coding Level of Care Code 83353 Initial Inpt Care Lvl 3 Diagnoses Acute heart failure I50.9 Chest pain R07.9 Atrial fibrillation I48.91 Hypertension I10 Mitral regurgitation I34.0 Hypercholesterolemia E78.00
--- NOTE | 2019-11-02 10:38 | Cardiology Consultation ---
Date of Consultation November 02, 2019 Assessment & Plan (1) Chest pain: (2) Acute heart failure: (3) Mitral regurgitation: (4) CAD (coronary artery disease): (5) Cardiomyopathy: Echocardiogram does reveal new cardiomyopathy with an EF of 35 to 40% with moderate global hypokinesis somewhat more significant inferiorly. Given her complaint of chest pain I believe the most prudent course of action at this point would be to proceed to cardiac catheterization for direct visualization of her coronary anatomy. Her Eliquis will be held and low-dose heparin will be started this evening. Her beta-brooks and nitro patch should be continued along with her aspirin. N.p.o. after midnight History of Present Illness Reason for Consultation: SOB Requesting Physician: Dr. Sagastume Attending Physician: Ren Sagastume, History of Present Illness Mrs. Reveles is a 74-year-old woman who normally follows with Dr. Cruz and Jean Claude Corona of our cardiology practice. She presents to [facility] on 11/02/2019 with complaints of chest discomfort. Patient states that she woke up this morning and noticed that she was having some chest tightness. She described it as a pressure sensation across her left precordium that radiated up into her left shoulder. This was associate with some shortness of breath. She denies any associated diaphoresis, nausea or vomiting. She states that she does not remember if this is similar to her previous anginal equivalent. She was brought into the ER by her son where initial work-up was unremarkable and she was admitted to telemetry. She was a little volume overloaded and given a dose of IV Lasix in the ER. She was placed on a nitro patch and she states that her chest discomfort has significantly improved but is still vaguely present. Past medical history as per most recent outpatient cardiology visit: 1. ASCVD. cardiac catheterization (90% ostial LM stenosis and moderate LCX disease), and CABG x 3 on 11/27/06 with a PRATT to the LAD and a SVG to the 1st to the 2nd obtuse marginal artery. 2. Valvular disease, mild aortic regurgitation, mild mitral regurgitation, moderate tricuspid regurgitation. 3. No evidence of pulmonary hypertension via February 2019 resting echocardiogram. 4. Asymptomatic paroxysmal atrial fibrillation first observed in February 2019 5. Mild acute decompensated diastolic congestive heart failure. 6. [id number] Score 4 points, Eliquis anticoagulation. 7. Stable bilateral internal carotid artery disease, stable via February 2019 duplex. 8. Hypertension 9. Dyslipidemia. Patient has been on high-dose simvastatin for many many years without significant myalgias/arthralgias, declining alternative therapy. 10. Strong family history of ASCVD Allergies Allergy/AdvReac Type Severity Reaction Status Date / Time No Known Drug Allergies Allergy Unknown . Verified 11/02/19 07:53 Home Medications Home Medications Medication Instructions Recorded Confirmed Type nitroglycerin 0.4 mg sublingual 0.4 mg SL UD PRN #25 tab 09/09/18 11/02/19 History tablet timolol maleate 0.25 % eye drops 1 drp OPB QAM ml 10/01/18 11/02/19 History apixaban [Eliquis] 5 mg PO BID 03/22/19 11/02/19 History metoprolol tartrate 25 mg PO QAM 03/22/19 11/02/19 History bimatoprost [Lumigan] 1 drp OPB DAILY@2300 11/02/19 11/02/19 History calcium carbonate-vitamin D3 1 tab PO QAM 11/02/19 11/02/19 History [Calcium 500 + D] docusate sodium [Colace] 100 mg PO QAM 11/02/19 11/02/19 History furosemide 20 mg PO MOTUWETHFR 11/02/19 11/02/19 History lisinopril 40 mg PO DAILY@1700 11/02/19 11/02/19 History potassium chloride 20 meq PO HS 11/02/19 11/02/19 History simvastatin 80 mg PO HS 11/02/19 11/02/19 History Patient History Medical History Atrial fibrillation (Chronic) CAD S/P percutaneous coronary angioplasty (Chronic) Coronary artery disease of bypass graft of [place] heart with stable angina pectoris Hypercholesterolemia (Chronic) Hypertension (Chronic) Hypokalemia (Chronic) Mitral regurgitation (Acute) Family History Mother Heart disease Hypertension Father Heart disease Hypertension Denies family history of Ovarian cancer Prostate cancer Myocardial infarction Breast cancer Colorectal cancer Social History Smoking Status: Never smoker Hx Alcohol Use: No Hx Substance Use: No Preferred Language: Nauruan Communication Ability: Effective Broadcast Designer Required: No Beliefs That Will Affect Care: None marital status: Current Living Situation: Family Current Living Situation Comment: LIVES WITH SON current occupational status: retired Other Information That Helps Us Care for You: No Feels Safe at Home: Yes Safety Concerns: Feels Safe At This Time Dental Care, Regularly: Yes Seatbelt Use: always Review of Systems Review of Systems: All systems reviewed & are unremarkable except as noted in HPI & below Physical Exam Physical Exam: General: Awake, alert and oriented x 3. No acute distress. HEENT: Normocephalic, atraumatic. Pupils equal, round and reactive to light and accommodation. Extraocular muscles are intact. Anicteric sclera. Moist mucous membranes. Neck: No JVD. No bruit. Cardiovascular: irregularly irregular, unable to appreciate murmur, rub or gallop. Pulmonary: Clear to auscultation bilaterally. No rales, rhonchi, or wheezing. Abdomen: Bowel sounds x 4, soft. No rebound, guarding or tenderness. No organomegaly. Extremities: No clubbing, cyanosis or edema. +2 pedal pulses bilaterally. Skin: Warm and dry. Results & Data ([facility]) Vital Signs (Past 12 Hours) Vital Signs Temp Pulse Resp BP Pulse Ox 11/02/19 09:45 87 18 97 11/02/19 09:31 96 H 21 97 11/02/19 09:30 99 H 19 117/80 96 11/02/19 09:15 95 H 19 97 11/02/19 09:01 90 18 97 11/02/19 09:00 100 H 16 130/80 97 11/02/19 08:45 87 22 97 11/02/19 08:31 108 H 18 97 11/02/19 08:30 92 H 16 128/92 97 11/02/19 08:15 91 H 20 97 11/02/19 08:01 117 H 25 H 96 11/02/19 08:00 105 H 25 H 129/82 96 11/02/19 07:50 124 H 21 130/117 H 97 11/02/19 07:49 110 H 21 124/101 H 97 11/02/19 07:48 123 H 124/101 H 11/02/19 07:45 113 H 23 11/02/19 07:32 96 11/02/19 07:20 36.9 C 128 H 20 143/86 H 97 11/02/19 07:16 96 Laboratory Results Laboratory Results - last 24 hr 11/02/19 11/02/19 11/02/19 07:40 07:40 07:40 WBC 8.59 RBC 3.70 L Hgb 11.0 L Hct 33.5 L MCV 90.5 MCH 29.7 MCHC 32.8 RDW Std Deviation 42.2 RDW Coeff of Alyssa 12.8 Plt Count 315 MPV 11.0 H Immature Gran % (Auto) 0.1 Neut % (Auto) 79.2 Lymph % (Auto) 13.4 [place] % (Auto) 5.5 Eos % (Auto) 1.3 Baso % (Auto) 0.5 Neut # (Auto) 6.81 H Lymph # (Auto) 1.15 L [place] # (Auto) 0.47 Eos # (Auto) 0.11 Baso # (Auto) 0.04 Immature Gran # (Auto) 0.01 PT 11.4 INR 1.1 APTT 28.9 PTT Ratio 1.0 Sodium 139 Potassium 4.6 Chloride 109 H Carbon Dioxide 24 Anion Gap 5.0 BUN 27 H Creatinine 0.98 Est Cr Clr Drug Dosing 47.7 Est GFR ( Amer) 65.9 Est GFR (Non-Af Amer) 56.8 BUN/Creatinine Ratio 27.0 H Glucose 111 H Calcium 9.2 Total Bilirubin 0.7 AST 35 ALT 36 Alkaline Phosphatase 90 Total Creatine Kinase 69 CK-MB (CK-2) 1.8 CK/CKMB % Calc 2.6 Troponin I 0.048 H* NT-Pro-B Natriuret Pep Total Protein 6.9 Albumin 3.5 Globulin 3.4 Albumin/Globulin Ratio 1.0 Lipase 141 11/02/19 11/02/19 07:40 12:25 WBC RBC Hgb Hct MCV MCH MCHC RDW Std Deviation RDW Coeff of Alyssa Plt Count MPV Immature Gran % (Auto) Neut % (Auto) Lymph % (Auto) [place] % (Auto) Eos % (Auto) Baso % (Auto) Neut # (Auto) Lymph # (Auto) [place] # (Auto) Eos # (Auto) Baso # (Auto) Immature Gran # (Auto) PT INR APTT PTT Ratio Sodium Potassium Chloride Carbon Dioxide Anion Gap BUN Creatinine Est Cr Clr Drug Dosing Est GFR ( Amer) Est GFR (Non-Af Amer) BUN/Creatinine Ratio Glucose Calcium Total Bilirubin AST ALT Alkaline Phosphatase Total Creatine Kinase CK-MB (CK-2) CK/CKMB % Calc Troponin I 0.046 H* NT-Pro-B Natriuret Pep 3524 H Total Protein Albumin Globulin Albumin/Globulin Ratio Lipase Medications Administered Current Inpatient Medications Acetaminophen (Tylenol) 650 mg PO Q4H PRN PRN Reason: Pain or Fever Stop: 12/02/19 09:59 Bimatoprost (Lumigan 0.01%) 1 drops OP DAILY@2300 [facility] Stop: 12/02/19 22:59 Docusate Sodium (Colace) 100 mg PO [facility] Stop: 12/02/19 09:59 Last Admin: 11/02/19 11:24 Dose: Not Given Documented by: Heparin Sodium/Dextrose () 1 ea IV Harper@2000 [facility] Stop: 11/02/19 20:01 Heparin Sodium/Dextrose (Heparin Sodium/Dextrose) 25,000 units in 500 mls @ 14 mls/hr IV .Q24H [facility]; Protocol Stop: 12/02/19 19:59 Lisinopril (Zestril) 40 mg PO DAILY@1700 [facility] Stop: 12/02/19 16:59 Metoprolol Succinate (Toprol Xl) 100 mg PO [facility] Stop: 12/03/19 08:59 Metoprolol Tartrate (Lopressor) 5 mg IV Q4 PRN PRN Reason: tachycardia Stop: 12/02/19 11:59 Multivitamins/Minerals (Caltrate Plus) 1 tab PO [facility] Stop: 12/02/19 09:59 Last Admin: 11/02/19 11:23 Dose: Not Given Documented by: Nitroglycerin (Nitro-Bid 2%) 1 inch EXT Q6H [facility] Stop: 12/02/19 08:14 Last Admin: 11/02/19 08:20 Dose: 1 inch Documented by: Ondansetron HCl (Zofran) 4 mg IV Q6H PRN PRN Reason: Nausea Stop: 12/02/19 09:59 Simvastatin (Zocor) 80 mg PO [facility] Stop: 12/02/19 20:59 Timolol Maleate (Timoptic-Xe 0.5% Oph) 1 drops OPB [facility] Stop: 12/02/19 09:59 Last Admin: 11/02/19 11:24 Dose: Not Given Documented by:
--- NOTE | 2019-11-02 11:06 | Electrocardiogram Report ---
Test Reason : Blood Pressure : / mmHG Vent. Rate : 115 BPM Atrial Rate : 127 BPM P-R Int : 000 ms QRS Dur : 080 ms QT Int : 310 ms P-R-T Axes : 000 -38 -03 degrees QTc Int : 428 ms Atrial fibrillation with rapid ventricular response Left axis deviation Abnormal ECG When compared with ECG of 22-MAR-2019 06:49, Atrial fibrillation has replaced Sinus rhythm Vent. rate has increased BY 50 BPM Confirmed by Gian Sims ([id number]) on 11/02/2019 11:05:51 AM Referred By: REFERRED SELF Confirmed By:Ethan Sims
[2019-11-02] MEDS: CALCIUM 600MG + VIT D 400 IU TAB PO SCH (11:23)
[2019-11-02] MEDS: DOCUSATE SODIUM 100 MG CAP PO SCH (11:24)
[2019-11-02] MEDS: TIMOLOL GFS 0.5% OPH SOLN 74 DROPS/5 ML BTL OPB SCH (11:24)
[2019-11-02] MEDS ORDERED: FUROSEMIDE 40 MG in SYRINGE 0 ML IV ONE (14:00)
[2019-11-02] MEDS: lisinopriL 40 MG TAB PO SCH (15:50)
[2019-11-02] MEDS ORDERED: Heparin IV Standard *NO* Bolus IV ONE (16:00)
[2019-11-02] MEDS: ACETAMINOPHEN 325 MG TAB PO PRN (19:41)
[2019-11-02] MEDS: SIMVASTATIN 80 MG TAB PO SCH (19:41)
[2019-11-02] MEDS ORDERED: HEPARIN SODIUM/DEXTROSE 25,000 UNITS/500 ML BAG IV SCH (20:00)
[2019-11-02] MEDS ORDERED: Heparin IV Low Dose *NO* Bolus IV ONE (20:00)
[2019-11-02] MEDS ORDERED: APIXABAN 5 MG TABLET PO SCH (21:00)
[2019-11-02] MEDS: BIMATOPROST 0.01% OP SOLN 2.5 ML BTL OP SCH (22:50)
[2019-11-03 02:41] LABS: Hemoglobin 10.1 g/dL (12.0-16.0); Mean Corpuscular Hemoglobin 29.9 pg (25-34); Mean Corpuscular Hgb Conc 33.7 g/dL (32-36); Mean Corpuscular Volume 88.8 fL (80-100); Mean Platelet Volume 10.5 fL (7.4-10.4); Platelet Count 261 K/uL (130-400); RDW Coefficient of Variation 12.7 % (11.5-14.5); RDW Standard Deviation 40.7 fL (36.4-46.3); Red Blood Count 3.38 M/uL (4.2-5.4); White Blood Count 8.04 K/uL (4.8-10.8)
[2019-11-03 02:51] LABS: Partial Thromboplastin Ratio 1.2; Partial Thromboplastin Time 34.7 Seconds (21.0-31.0)
[2019-11-03 03:05] LABS: BUN Creatinine Ratio 22.4 (10-20); Calcium 8.2 mg/dl (8.5-10.1); Creatinine Clr Calc Pharmacy 48.7 ml/min; Est GFR (African American) 67.5; Est GFR (Non-African American) 58.3; Magnesium 2.5 mg/dl (1.8-2.4); Potassium 3.4 mmol/L (3.5-5.1)
[2019-11-03] MEDS ORDERED: HEPARIN IV BOLUS 4,000 UNITS in SYRINGE 0 ML IV ONE (03:30)
[2019-11-03] MEDS: NITROGLYCERIN 2% OINTMENT 30GM TUBE EXT SCH ×3 (03:33→14:36)
[2019-11-03] MEDS: DOCUSATE SODIUM 100 MG CAP PO SCH (09:00)
[2019-11-03] MEDS ORDERED: METOPROLOL SUCC 50MG EXT REL TAB PO SCH (09:00)
[2019-11-03] MEDS: CALCIUM 600MG + VIT D 400 IU TAB PO SCH (09:00)
[2019-11-03] MEDS: TIMOLOL GFS 0.5% OPH SOLN 74 DROPS/5 ML BTL OPB SCH (09:00)
--- NOTE | 2019-11-03 09:34 | Pre Anesthesia Assessment ---
Date of Service November 03, 2019 Pre Sedation Assessment Vital Signs Temp Pulse Pulse Pulse Resp BP Pulse Ox 11/03/19 07:21 36.3 C L 99 H 19 121/69 95 11/03/19 03:29 36.5 C 90 18 116/74 95 11/03/19 00:23 36.6 C 99 H 18 102/52 L 96 11/02/19 20:05 36.6 C 104 H 18 110/70 97 11/02/19 16:41 36.5 C 94 H 18 127/87 92 11/02/19 12:07 36.6 C 106 H 18 121/77 97 11/02/19 09:56 36.6 C 17 141/78 H 97 11/02/19 09:45 87 18 97 Cardiovascular + tachycardic and + irregularly irregular + murmur Respiratory normal respiratory effort, lungs clear to auscultation Pre-Sedation Airway Assessment Smoking Status: Never smoker Hx Sleep Apnea: No Hx Difficult Intubation: No Short, Thick Neck: No Mallampati Class: II NPO Status Date of Last Intake of Fluids: 11/02/19 Date of Last Intake of Solid Food: 11/02/19 Procedure Planning Contraindications for Sedation: none Current Medications Reviewed: Yes Notes The planned sedation has been discussed with the patient. Informed Consent was obtained. I have identified the patient, determined the appropriateness of sedation and have assessed the patient immediately prior to the procedure. All medicine(s) and interventions are by my order.
[2019-11-03 09:58] LABS: Partial Thromboplastin Ratio 1.8
[2019-11-03] MEDS ORDERED: SODIUM CHLORIDE 0.9% 1000ML 1,000 ML IV SCH ×2 (10:00→11:45)
--- NOTE | 2019-11-03 10:00 | Cardiology Progress Note ---
Date of Service November 03, 2019 Assessment & Plan (1) Chest pain: Cardiac enzymes are flat, no dynamic EKG changes. Given newly noted cardiomyopathy discussed with patient initial plan Proceed with diagnostic cardiac catheterization (2) Acute heart failure: Clinically improved with good diuresis (3) Mitral regurgitation: (4) CAD (coronary artery disease): Status post coronary bypass grafting 2006, PRATT graft LAD saphenous vein graft sequentially to OM1 OM 2 for left main disease (5) Cardiomyopathy: Echocardiogram does reveal new cardiomyopathy with an EF of 35 to 40% with moderate global hypokinesis somewhat more significant inferiorly. Plan diagnostic cardiac catheterization as initial approach. Cardiomyopathy may be tachycardia mediated Subjective Patient was seen and examined, chart, medications, telemetry reviewed. Patient feels improved since admission brisk diuresis overnight no longer dysp neic and no chest pressure. No dizziness or lightheadedness. No fevers or chills. No recent chest pain or discomfort. Physical Exam Constitutional: WD/WN, vitals as above Eyes: PERRL, conjunctivae normal, anicteric sclerae ENMT: external ear and nose normal, oropharynx normal Neck: trachea midline, no thyromegaly Respiratory: normal respiratory effort, lungs clear to auscultation Cardiovascular: Rate/Rhythm: + tachycardic and + irregularly irregular Heart Sounds: normal S1, normal S2 and + murmur (Grade 1-2/ 6 systolic); no gallop Palpation: normal PMI Vessels: normal peripheral pulses, normal carotid upstroke and radial pulses present; no JVD and no carotid bruit Extremities: no edema Gastrointestinal (Abdomen): normal bowel sounds, soft, nontender, no hepatosplenomegaly Musculoskeletal: no cyanosis or clubbing, extremities motor strength 5/5 Skin: no rashes, warm and dry Neurologic: PERRL, EOMI, accommodation nl, no face palsy, no dysarthria Psychiatric: A+Ox3, euthymic affect Results & Data Vital Signs (Past 12 Hours) Vital Signs Temp Pulse Pulse Resp BP Pulse Ox 11/03/19 07:21 36.3 C L 99 H 19 121/69 95 11/03/19 03:29 36.5 C 90 18 116/74 95 11/03/19 00:23 36.6 C 99 H 18 102/52 L 96 Laboratory Results Laboratory Results - last 24 hr 11/02/19 11/02/19 11/03/19 12:25 17:53 02:28 WBC 8.04 RBC 3.38 L Hgb 10.1 L Hct 30.0 L MCV 88.8 MCH 29.9 MCHC 33.7 RDW Std Deviation 40.7 RDW Coeff of Alyssa 12.7 Plt Count 261 MPV 10.5 H APTT PTT Ratio Sodium Potassium Chloride Carbon Dioxide Anion Gap BUN Creatinine Est Cr Clr Drug Dosing Est GFR ( Amer) Est GFR (Non-Af Amer) BUN/Creatinine Ratio Glucose Calcium Magnesium Troponin I 0.046 H* 0.039 11/03/19 11/03/19 11/03/19 02:28 02:28 09:23 WBC RBC Hgb Hct MCV MCH MCHC RDW Std Deviation RDW Coeff of Alyssa Plt Count MPV APTT 34.7 H Pending PTT Ratio 1.2 Pending Sodium 137 Potassium 3.4 L D Chloride 103 Carbon Dioxide 27 Anion Gap 7.0 BUN 21 H Creatinine 0.96 Est Cr Clr Drug Dosing 48.7 Est GFR ( Amer) 67.5 Est GFR (Non-Af Amer) 58.3 BUN/Creatinine Ratio 22.4 H Glucose 96 Calcium 8.2 L Magnesium 2.5 H Troponin I (1) Acute heart failure Heart failure type: unspecified Qualified Code(s): I50.9 - Heart failure, unspecified (2) Chest pain Chest pain type: unspecified Qualified Code(s): R07.9 - Chest pain, unspecified
[2019-11-03 10:02] LABS: Partial Thromboplastin Time 50.4 Seconds (21.0-31.0)
[2019-11-03] MEDS ORDERED: NITROGLYCERIN/D5W 100MCG/ML 20ML SYR ONE (10:17)
[2019-11-03] MEDS ORDERED: NiCARDipine HCL INJ 2.5 MG/ML 10 ML AMP ONE (10:17)
[2019-11-03] MEDS ORDERED: MIDAZOLAM HCL 1 MG/ML 2ML VIAL ONE (10:18)
[2019-11-03] MEDS ORDERED: fentaNYL citrate 100 MCG/2 ML VIAL ONE (10:18)
[2019-11-03] MEDS ORDERED: HEPARIN (PORCINE) 1000 UNIT/ML 10 ML (CATH LAB USE ONLY) ONE (10:18)
[2019-11-03] MEDS ORDERED: diazePAM 5 MG TABLET ONE (10:23)
--- NOTE | 2019-11-03 11:56 | Cardiac Catheterization ---
Cardiac Cath Procedure Brief Procedure Date November 03, 2019 Pre-Procedure Diagnosis Pre-Procedure Diagnosis: CHF and Cardiomyopathy AUC Score AUC Score: 9 Post-Procedure Diagnosis Post-Procedure Diagnosis: Severe CAD Procedure(s) Performed Procedure(s) Performed: Coronary Angiography, Left Heart Cath, LV Angiography and Bypass Graft Angiography Plastic Boat Buffer Skip Lopez MD Estimated Blood Loss Estimated Blood Loss: <15cc Medication(s) Medication(s): Diazepam (5 mg p.o.), Diphenhydramine (25 mg p.o.) and Lidocaine 1% (Local infiltration access site) Preliminary Findings Atrial fibrillation with elevated ventricular response rate Severe [place] vessel coronary disease with critical ostial left main stenosis, 90% Patent PRATT graft to the LAD without anastomosis compromise Occluded saphenous vein graft to OM1, OM 2 Right dominant coronary anatomy Left anterior descending: Type III in distribution. It gives rise to a septal branch and 2 small diagonals in its midportion. The proximal vessel has a long area of diffuse disease narrowing of a 70 to 80%. The distal vessel fills well via antegrade flow and via left internal mammary artery graft Ramus intermedius: Small vessel Left circumflex: Large but nondominant vessel consisting of a large bifurcating obtuse marginal and to moderately large posterior lateral branches along the AV groove. The left circumflex has a shelflike 50 to 60% stenosis at its origin, a 60% narrowing in the proximal obtuse marginal, and an 80% narrowing in the inferior subbranch of the obtuse marginal. The sequential graft from the superior branch to the inferior branch remains patent. Right coronary artery: Dominant vessel consisting of a long posterior descending artery and a single posterior ventricular branch. There are moderate luminal irregularities in the right coronary artery Left ventricular angiography: There is focal hypokinesis of the inferior apex with mild diffuse LV dysfunction other segments EF 40 to 45% with moderate mitral insufficiency Recommendations Recommendations: Medical Therapy and/or Counseling and Management Recommendatons (Options of management to be discussed) Specimens Specimens: None Fluids (cc crystalloids) Fluids (cc crystalloids): 180 Anesthesia Start time: 1043, stop time 1130 Procedural Complication(s) None Disposition PCU
--- NOTE | 2019-11-03 12:25 | Cardiac Catheterization ---
Cardiac Cath Procedure Full Procedure Date November 03, 2019 Pre-Procedure Diagnosis Pre-Procedure Diagnosis: CHF and Cardiomyopathy AUC Score AUC Score: 9 Post-Procedure Diagnosis Post-Procedure Diagnosis: Severe CAD Procedure(s) Performed Procedure(s) Performed: Coronary Angiography, Left Heart Cath, LV Angiography and Bypass Graft Angiography Engineering Program Analyst Skip Lopez MD Cage/Vault Supervisor(s) [facility] Estimated Blood Loss Estimated Blood Loss: <15cc Medication(s) Medication(s): Diazepam (5 mg p.o.), Diphenhydramine (25 mg p.o.) and Lidocaine 1% (Local infiltration access site) Summary of Findings Atrial fibrillation with elevated ventricular response rate Severe three affiliated vessel coronary disease with critical ostial left main stenosis, 90% Patent PRATT graft to the LAD without anastomosis compromise Occluded saphenous vein graft to OM1, OM 2 Right dominant coronary anatomy Left anterior descending: Type III in distribution. It gives rise to a septal branch and 2 small diagonals in its midportion. The proximal vessel has a long area of diffuse disease narrowing of a 70 to 80%. The distal vessel fills well via antegrade flow and via left internal mammary artery graft Ramus intermedius: Small vessel Left circumflex: Large but nondominant vessel consisting of a large bifurcating obtuse marginal and to moderately large posterior lateral branches along the AV groove. The left circumflex has a shelflike 50 to 60% stenosis at its origin, a 60% narrowing in the proximal obtuse marginal, and an 80% narrowing in the inferior subbranch of the obtuse marginal. The sequential graft from the superior branch to the inferior branch remains patent. Right coronary artery: Dominant vessel consisting of a long posterior descending artery and a single posterior ventricular branch. There are moderate luminal irregularities in the right coronary artery Left ventricular angiography: There is focal hypokinesis of the inferior apex with mild diffuse LV dysfunction other segments EF 40 to 45% with moderate mitral insufficiency Hemodynamics Rest Ao:: 157/107/128 Final Ao: 149/105/12 LV: 160/16/36 Recommendations Recommendations: Medical Therapy and/or Counseling and Management Recommendatons (Options of management to be discussed) Specimens Specimens: None Radiation Exposure (mGy) 1164 Contrast (mls) 179 Fluids (cc crystalloids) Fluids (cc crystalloids): 180 Anesthesia Start time: 1043, stop time 1130 Procedural Complication(s) None Disposition PCU I attest to the content of the Intraoperative Record and any orders documented therein. Any exceptions are noted below. 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[employer] Cardiac Status 74-year-old female status post coronary bypass grafting presented with atrial fibrillation with elevated ventricular response rate, new onset congestive heart failure and substantial decrease in LV systolic function reflecting new cardiomyopathy CAD Presenation: Stable angina Anginal Classification: CCS II Heart Failure: NYHA Class: CCS III Cardiogenic Shock within 24 Hours: No Cardiac Arrest within 24 Hours: No Imaging Studies Past 6 Months: Yes Stress Studies Past 6 Months: No Standard Exercise Test: No Stress Echocardiogram: No Stress Testing w/SPECT MPI: No Cardiac CTA: No Coronary Anatomy Dominant: Right Left Main (% Stenosis): Ostial (90) LAD (% Stenosis): Proximal (7080) D1 (% Stenosis): Normal D2 (% Stenosis): Proximal Circumflex (% Stenosis): Ostial (60%) OM1 (% Stenosis): Proximal (60) and Mid (80% origin inferior subbranch) OM2 (% Stenosis): Normal L PL1 (% Stenosis): Normal L PL2 (% Stenosis): Normal RCA (% Stenosis): Mid (Minimal irregularities) R PDA (% Stenosis): Normal R PL1 (% Stenosis): Normal Ramus (% Stenosis): Normal (Small) Grafts - LAD (%): Normal Grafts - Circumflex (%): Ostial (100%) Left Ventricular Angiography EF (%): 4045 Wall Motion: Apical Mitral Regurgitation: 2+ and 3+ Diagnostic Physicians Name: Skip Lopez MD Status: Urgent Closure Device Percutaneous Entry Location: Femoral Closure Device: None-Manual Hold Recommendations: Medical Therapy and/or Counseling and Management Recommendatons (Options of management to be discussed)
[2019-11-03] MEDS ORDERED: LORazepam 0.5 MG/1 ML VIAL IV STA (13:06)
[2019-11-03] MEDS: METOPROLOL SUCC 50MG EXT REL TAB PO SCH ×2 (14:36→21:31)
--- NOTE | 2019-11-03 15:26 | Communication Note ---
Date of Service: November 03, 2019 I have reviewed the results of diagnostic cardiac catheterization with patient and daughter. Study demonstrates high-grade ostial left main stenosis previously present at time of chronic bypass grafting in 2006 PRATT graft to the LAD remains patent without compromise. Right coronary artery without significant disease Saphenous vein graft to the circumflex obtuse marginal is occluded. Circumflex distribution, moderately large, is at risk for ischemia given critical left main disease Coronary invention relatively high risk given location but could be performed given PRATT graft protection EKGs and minimal flat elevation of troponins do not suggest acute myocardial injury as culprit for congestive heart failure/cardiomyopathy but underlying ischemic heart disease certainly contributing Recommendations: We will treat congestive heart failure, hypertension, atrial fibrillation with elevated rates with ultimate goals optimization of medical the rapies and consider coronary intervention depending on clinical course We will resume IV heparin this evening, transition to Eliquis depending on stability, increase metoprolol succinate to 50 mg 3 times daily, continue topical nitrates
[2019-11-03] MEDS ORDERED: Heparin IV Low Dose *NO* Bolus IV SCH (16:00)
[2019-11-03 17:41] LABS: Basophils # (auto) 0.03 K/uL (0-0.2); Basophils % (auto) 0.4 %; Eosinophils # (auto) 0.13 K/uL (0-0.5); Eosinophils % (auto) 1.6 %; Hemoglobin 9.7 g/dL (12.0-16.0); Immature Granulocytes # (auto) 0.01 K/uL (0.00-0.02); Immature Granulocytes % (auto) 0.1 %; Lymphocytes # (auto) 1.23 K/uL (1.2-3.4); Lymphocytes % (auto) 15.4 %; Mean Corpuscular Hemoglobin 29.8 pg (25-34); Mean Corpuscular Volume 89.2 fL (80-100); Mean Platelet Volume 10.6 fL (7.4-10.4); Monocytes # (auto) 1.03 K/uL (0.11-0.59); Monocytes % (auto) 12.9 %; Neutrophils # (auto) 5.56 K/uL (1.4-6.5); Neutrophils % (auto) 69.6 %; Platelet Count 259 K/uL (130-400); RDW Coefficient of Variation 12.7 % (11.5-14.5); RDW Standard Deviation 41.1 fL (36.4-46.3); Red Blood Count 3.25 M/uL (4.2-5.4); White Blood Count 7.99 K/uL (4.8-10.8)
[2019-11-03 17:47] LABS: Mean Corpuscular Hgb Conc 33.4 g/dL (32-36)
--- NOTE | 2019-11-03 17:55 | Hospitalist Progress Note ---
Date of Service November 03, 2019 Assessment & Plan (1) Acute heart failure: Acute systolic and diastolic CHF treated with IV Lasix Presented with pulmonary edema on CXR, suspect it is due to afib with RVR rales in bases on exam-now resolved after brisk diuresis Echo with EF reduced at 35-40%, diastolic dysfunction this is a change from prior echo with preserved EF Cardiology consult appreciated--> now s/p left heart cath 11/02, Cardiology recs as below: "Study demonstrates high-grade ostial left main stenosis previously present at time of chronic bypass grafting in 2006 PRATT graft to the LAD remains patent without compromise. Right coronary artery without significant disease Saphenous vein graft to the circumflex obtuse marginal is occluded. Circumflex distribution, moderately large, is at risk for ischemia given critical left main disease Coronary invention relatively high risk given location but could be performed given PRATT graft protection EKGs and minimal flat elevation of troponins do not suggest acute myocardial injury as culprit for congestive heart failure/cardiomyopathy but underlying ischemic heart disease certainly contributing Recommendations: We will treat congestive heart failure, hypertension, atrial fibrillation with elevated rates with ultimate goals optimization of medical therapies and consider coronary intervention depending on clinical course We will resume IV heparin this evening, transition to Eliquis depending on stability, increase metoprolol succinate to 50 mg 3 times daily, continue topical nitrates" However now HOLD NTG paste due to hypotension -continue Lasix as needed -eventually will need to convert back to Toprol XL -HOLD lisinopril just for tonight until BP comes back up (2) Chest pain: Had chest pressure that correlated with palpitations troponin is only 0.04/0.046/0.039 serially, no ischemic changes on EKG suspect patient was experiencing some rapid heart rates with afib, causing some angina continue metoprolol aspirin 81mg daily -dc nitropaste as above (3) Atrial fibrillation: chronic, now with some RVR, rates still not controlled continue to up-titrate metoprolol for improved rate control--> now on metoprolol 50 tid Appreciate Cardiology recs--> holding Eliquis in case of need for intervention/transfer to [place] tomorrow, continue heparin gtt (4) Hypertension: as above, with hypotension now -continue metoprolol -hold lisinopril, NTG, lasix (5) Mitral regurgitation: noted on ECHO moderate (6) Hypercholesterolemia: Simvastatin (7) Hypokalemia: K+ 3.4 -replace with KCl 40meq po x 1 follow BMP, Mag in AM (8) Tricuspid regurgitation: severe on ECHO (9) Aortic insufficiency: mild on ECHO (10) DVT prophylaxis: Heparin gtt Dispo-continued stay, possible transfer to [place] for complex cardiac intervention tomorrow Admission and Anticipated Discharge Date Admission Date: November 02, 2019 Subjective Pt had cardiac cath today, was very anxious when she returned from this and was crying, could not hold still or lie flat. I ordered a low dose of IV ativan and this helped. She denies chest pain and states that she feels much better with her breathing now after being diuresed. Denies lightheadedness or headache, no abd pain or nausea. SHe ate her meals today. BPs a bit soft in the early evening and Cardiology held her nitropaste and lasix. I held her lisinopril as well. Tele with Afib with rates still elevated at 110-160s. Review of Systems Review of Systems: All systems reviewed & are unremarkable except as noted in HPI & below Physical Exam Constitutional: WD/WN, vitals as above Eyes: + anicteric sclerae ENMT: external ear and nose normal, oropharynx normal Neck: trachea midline, no thyromegaly Respiratory: normal respiratory effort, lungs clear to auscultation Cardiovascular: Rate/Rhythm: + tachycardic and + irregularly irregular Heart Sounds: + murmur (3/6 ARIELLE at [facility]) Extremities: no edema Chest (Breasts): Chest: normal inspection of chest Gastrointestinal (Abdomen): normal bowel sounds, soft, nontender, no hepatosplenomegaly Musculoskeletal: Extremities: extremities normal to inspection; no cyanosis and no clubbing Skin: no rashes, warm and dry right groin with dressing in place c/d/i Neurologic: moves all extremities and awake; no focal motor deficits Psychiatric: A+Ox3, euthymic affect Lymphatic: no lymphedema Results & Data Results & Data ([facility]) Vital Signs (Past 12 Hours) Vital Signs Temp Pulse Pulse Resp BP Pulse Ox 11/03/19 16:27 111 H 18 84/49 L 94 11/03/19 16:08 36.5 C 99 H 21 91/57 L 96 11/03/19 15:48 110 H 103/62 94 08/10/20 15:30 115 H 101/58 L 95 11/03/19 14:49 110 H 18 120/74 94 11/03/19 13:49 135 H 18 133/74 93 11/03/19 12:49 127 H 18 139/98 97 11/03/19 12:34 116 H 16 148/104 H 94 11/03/19 12:33 120 H 11/03/19 12:15 134 H 20 144/85 H 96 11/03/19 12:10 112 H 20 149/91 H 96 11/03/19 12:05 133 H 20 105/67 96 11/03/19 12:00 115 H 20 140/90 96 11/03/19 11:55 126 H 20 141/93 H 96 11/03/19 11:50 129 H 20 140/100 96 11/03/19 11:45 118 H 20 141/102 H 96 11/03/19 11:40 118 H 20 157/109 H 96 11/03/19 08:00 97 H 11/03/19 07:21 36.3 C L 99 H 19 121/69 95 Laboratory Results 11/03/19 11/03/19 11/03/19 Range/Units 17:27 09:23 02:28 WBC 7.99 (4.8-10.8) K/uL RBC 3.25 L (4.2-5.4) M/uL Hgb 9.7 L (12.0-16.0) g/dL Hct 29.0 L (37-47) % MCV 89.2 (80-100) fL MCH 29.8 (25-34) pg MCHC 33.4 (32-36) g/dL RDW Std Deviation 41.1 (36.4-46.3) fL RDW Coeff of Alyssa 12.7 (11.5-14.5) % Plt Count 259 (130-400) K/uL MPV 10.6 H (7.4-10.4) fL Immature Gran % (Auto) 0.1 % Neut % (Auto) 69.6 % Lymph % (Auto) 15.4 % Garza % (Auto) 12.9 % Eos % (Auto) 1.6 % Baso % (Auto) 0.4 % Neut # (Auto) 5.56 (1.4-6.5) K/uL Lymph # (Auto) 1.23 (1.2-3.4) K/uL Garza # (Auto) 1.03 H (0.11-0.59) K/uL Eos # (Auto) 0.13 (0-0.5) K/uL Baso # (Auto) 0.03 (0-0.2) K/uL Immature Gran # (Auto) 0.01 (0.00-0.02) K/uL APTT 50.4 H* 34.7 H (21.0-31.0) Seconds PTT Ratio 1.8 1.2 Sodium (136-145) mmol/L Potassium (3.5-5.1) mmol/L Chloride (98-107) mmol/L Carbon Dioxide (21-32) mmol/L Anion Gap (3-11) BUN (7-18) mg/dl Creatinine (0.6-1.2) mg/dl Est Cr Clr Drug Dosing ml/min Est GFR ( Amer) Est GFR (Non-Af Amer) BUN/Creatinine Ratio (10-20) Glucose (70-99) mg/dl Calcium (8.5-10.1) mg/dl Magnesium (1.8-2.4) mg/dl Troponin I (0-0.045) ng/ml 11/03/19 11/03/19 11/02/19 Range/Units 02:28 02:28 17:53 WBC 8.04 (4.8-10.8) K/uL RBC 3.38 L (4.2-5.4) M/uL Hgb 10.1 L (12.0-16.0) g/dL Hct 30.0 L (37-47) % MCV 88.8 (80-100) fL MCH 29.9 (25-34) pg MCHC 33.7 (32-36) g/dL RDW Std Deviation 40.7 (36.4-46.3) fL RDW Coeff of Alyssa 12.7 (11.5-14.5) % Plt Count 261 (130-400) K/uL MPV 10.5 H (7.4-10.4) fL Immature Gran % (Auto) % Neut % (Auto) % Lymph % (Auto) % Garza % (Auto) % Eos % (Auto) % Baso % (Auto) % Neut # (Auto) (1.4-6.5) K/uL Lymph # (Auto) (1.2-3.4) K/uL Garza # (Auto) (0.11-0.59) K/uL Eos # (Auto) (0-0.5) K/uL Baso # (Auto) (0-0.2) K/uL Immature Gran # (Auto) (0.00-0.02) K/uL APTT (21.0-31.0) Seconds PTT Ratio Sodium 137 (136-145) mmol/L Potassium 3.4 L D (3.5-5.1) mmol/L Chloride 103 (98-107) mmol/L Carbon Dioxide 27 (21-32) mmol/L Anion Gap 7.0 (3-11) BUN 21 H (7-18) mg/dl Creatinine 0.96 (0.6-1.2) mg/dl Est Cr Clr Drug Dosing 48.7 ml/min Est GFR ( Amer) 67.5 Est GFR (Non-Af Amer) 58.3 BUN/Creatinine Ratio 22.4 H (10-20) Glucose 96 (70-99) mg/dl Calcium 8.2 L (8.5-10.1) mg/dl Magnesium 2.5 H (1.8-2.4) mg/dl Troponin I 0.039 (0-0.045) ng/ml PG Care Time/CCT Total # of Minutes Spent Total Time Spent with Patient: Total time spent is greater than 50% in coordination of care (as documented) at patient's floor/unit and/or counseling patient: Coding Level of Care Code 20274 Subseq Hosp Care Lvl 3 Diagnoses Acute heart failure I50.9 Heart failure type: unspecified Chest pain R07.9 Chest pain type: unspecified Atrial fibrillation I48.91 Hypertension I10 Mitral regurgitation I34.0 Hypercholesterolemia E78.00 Hypokalemia E87.6 Tricuspid regurgitation I07.1 Aortic insufficiency I35.1 DVT prophylaxis Z29.9 (1) Acute heart failure Heart failure type: unspecified Qualified Code(s): I50.9 - Heart failure, unspecified (2) Chest pain Chest pain type: unspecified Qualified Code(s): R07.9 - Chest pain, unspecified
[2019-11-03] MEDS ORDERED: FUROSEMIDE 20 MG in SYRINGE 0 ML IV ONE (18:00)
[2019-11-03] MEDS ORDERED: POTASSIUM CHLORIDE 20 MEQ TABCR PO ONE (18:15)
[2019-11-03] MEDS: lisinopriL 40 MG TAB PO SCH (18:21)
[2019-11-03] MEDS: HEPARIN SODIUM/DEXTROSE 25,000 UNITS/500 ML BAG IV SCH (18:53)
[2019-11-03] MEDS: BIMATOPROST 0.01% OP SOLN 2.5 ML BTL OP SCH (20:50)
[2019-11-03] MEDS: SIMVASTATIN 80 MG TAB PO SCH (20:51)
--- NOTE | 2019-11-03 22:05 | Electrocardiogram Report ---
Test Reason : Blood Pressure : / mmHG Vent. Rate : 106 BPM Atrial Rate : 119 BPM P-R Int : 000 ms QRS Dur : 084 ms QT Int : 344 ms P-R-T Axes : 000 -42 -20 degrees QTc Int : 456 ms Atrial fibrillation with rapid ventricular response Left axis deviation Septal infarct (cited on or before 03-NOV-2019) Abnormal ECG When compared with ECG of 02-NOV-2019 07:31, No significant change was found Confirmed by Antolin Valadez ([id number]) on 11/03/2019 10:04:56 PM Referred By: REFERRED SELF Confirmed By:Antolin Valadez
[2019-11-04 01:27] LABS: Partial Thromboplastin Ratio 1.2; Partial Thromboplastin Time 34.2 Seconds (21.0-31.0)
[2019-11-04] MEDS ORDERED: HEPARIN IV BOLUS 4,000 UNITS in SYRINGE 0 ML IV ONE ×2 (02:00→16:00)
[2019-11-04 07:45] LABS: Basophils # (auto) 0.04 K/uL (0-0.2); Basophils % (auto) 0.7 %; Eosinophils # (auto) 0.19 K/uL (0-0.5); Eosinophils % (auto) 3.4 %; Hematocrit (blood only) 30.5 % (37-47); Hemoglobin 10.2 g/dL (12.0-16.0); Lymphocytes # (auto) 1.37 K/uL (1.2-3.4); Lymphocytes % (auto) 24.7 %; Mean Corpuscular Hemoglobin 29.8 pg (25-34); Mean Corpuscular Hgb Conc 33.4 g/dL (32-36); Mean Corpuscular Volume 89.2 fL (80-100); Mean Platelet Volume 10.6 fL (7.4-10.4); Monocytes # (auto) 0.72 K/uL (0.11-0.59); Neutrophils # (auto) 3.22 K/uL (1.4-6.5); Neutrophils % (auto) 58.2 %; Platelet Count 246 K/uL (130-400); RDW Coefficient of Variation 12.8 % (11.5-14.5); RDW Standard Deviation 40.6 fL (36.4-46.3); Red Blood Count 3.42 M/uL (4.2-5.4); White Blood Count 5.54 K/uL (4.8-10.8)
[2019-11-04 08:03] LABS: Partial Thromboplastin Ratio 3.1
[2019-11-04 08:07] LABS: Partial Thromboplastin Time 87.7 Seconds (21.0-31.0)
[2019-11-04 08:14] LABS: BUN Creatinine Ratio 21.9 (10-20); Calcium 8.7 mg/dl (8.5-10.1); Creatinine Clr Calc Pharmacy 55.4 ml/min; Est GFR (African American) 88.2; Est GFR (Non-African American) 76.1; Magnesium 2.2 mg/dl (1.8-2.4); Potassium 4.1 mmol/L (3.5-5.1)
[2019-11-04] MEDS: METOPROLOL SUCC 50MG EXT REL TAB PO SCH ×3 (08:59→21:00)
[2019-11-04] MEDS: DOCUSATE SODIUM 100 MG CAP PO SCH (09:00)
[2019-11-04] MEDS: CALCIUM 600MG + VIT D 400 IU TAB PO SCH (09:00)
[2019-11-04] MEDS: TIMOLOL GFS 0.5% OPH SOLN 74 DROPS/5 ML BTL OPB SCH (09:01)
--- NOTE | 2019-11-04 10:23 | Cardiology Progress Note ---
Date of Service November 04, 2019 Assessment & Plan (1) Acute heart failure: Patient presented with chest pressure consistent with angina or perhaps due to volume overload. Echo reveals new moderate LV systolic dysfunction, LVEF 35-39 % as compared to 55-59% in 02/2019. Cardiac catheterization revealed high grade left main disease, patent PRATT to LAD, SVG to Cx territory is occluded, however, perhaps on a chronic rather than acute basis with CABG having taken place in 2006. Zio monitor 03/2019 revealed Paroxysmal Atrial fibrillation, burden 34%, however, has reverted to persistent AF in the meantime, rates rapid on presentation. Severe left atrial enlargement noted on echo. Responded well to diuresis, which appears to have been the intervention that improved her symptoms. (2) CAD (coronary artery disease): As noted SVG to Cx is occluded. [place] Circumflex coronary is potentially approachable via [place] band left main, however, would be a high risk intervention. (3) Atrial fibrillation: Plan for now to continue increased dose of metoprolol. Add amiodarone orally for rate, perhaps rhythm control. LFTs normal this admission, will add TSH. Rhythm control strategy man not be successful given severe LA enlargement. Stroke prophylaxis: Eliquis on hold for cath yesterday, and has been on a heparin bridge, with anticoagulation only pauses briefly for the procedure. Continue heparin bridge for now until need for complex PCI determined, however, would favor further control of AF with improved rates first. (4) Hypercholesterolemia: Given amiodarone , simvastatin dose of 80 mg reduced to 10 mg daily Subjective Patient seen in followup. State she feels well compared to when she presented to the hospital. Remains in AF on telemetry V rates at rest in the range of 90-110 bpm. Review of Systems Review of Systems: All systems reviewed & are unremarkable except as noted in HPI & below Physical Exam Physical Exam: Temp Pulse Resp BP Pulse Ox 37.0 C 94 H 18 118/81 96 11/04/19 07:06 11/04/19 09:19 11/04/19 07:06 11/04/19 07:06 11/04/19 07:06 Constitutional: WD/WN, vitals as above Respiratory: normal respiratory effort, lungs clear to auscultation Cardiovascular: Rate/Rhythm: + irregularly irregular Heart Sounds: + murmur (I/ SM) Vessels: no JVD Gastrointestinal (Abdomen): normal bowel sounds, soft, nontender, no hepatosplenomegaly Neurologic: PERRL, EOMI, accommodation nl, no face palsy, no dysarthria Results & Data Vital Signs (Past 12 Hours) Vital Signs Temp Pulse Pulse Resp BP Pulse Ox 11/04/19 09:19 94 H 11/04/19 07:06 37.0 C 109 H 18 118/81 96 11/04/19 03:20 36.9 C 102 H 18 106/68 95 11/03/19 23:30 37 C 106 H 18 111/64 95 Laboratory Results Coagulation 11/04/19 11/04/19 Range/Units 00:52 07:34 APTT 34.2 H 87.7 H* (21.0-31.0) Seconds CBC 11/03/19 11/04/19 Range/Units 17:27 07:34 WBC 7.99 5.54 (4.8-10.8) K/uL RBC 3.25 L 3.42 L (4.2-5.4) M/uL Hgb 9.7 L 10.2 L (12.0-16.0) g/dL Hct 29.0 L 30.5 L (37-47) % Plt Count 259 246 (130-400) K/uL Neut # (Auto) 5.56 3.22 (1.4-6.5) K/uL Lymph # (Auto) 1.23 1.37 (1.2-3.4) K/uL [place] # (Auto) 1.03 H 0.72 H (0.11-0.59) K/uL Eos # (Auto) 0.13 0.19 (0-0.5) K/uL Baso # (Auto) 0.03 0.04 (0-0.2) K/uL Comprehensive Metabolic Panel 11/04/19 Range/Units 07:34 Sodium 138 (136-145) mmol/L Potassium 4.1 D (3.5-5.1) mmol/L Chloride 107 (98-107) mmol/L Carbon Dioxide 25 (21-32) mmol/L BUN 17 (7-18) mg/dl Creatinine 0.77 (0.6-1.2) mg/dl Glucose 88 (70-99) mg/dl Calcium 8.7 (8.5-10.1) mg/dl Intake and Output 11/03/19 11/04/19 11/04/19 22:59 06:59 14:59 Intake Total 870 / 1126.900 179.834 / 1126.900 18.933 / 18.933 Output Total 1150 / 1400 250 / 1400 Balance -280 / -273.100 -70.166 / -273.100 18.933 / 18.933 Intake: IV 530 / 786.900 179.834 / 786.900 18.933 / 18.933 HEPARIN SODIUM/DEXTROSE 25,000 179.834 / 179.834 18.933 / 18.933 units In 500 ml @ 800 UNITS/HR 16 mls/hr IV .Q24H [facility] Rx#: [id number] Nss 1000ML 1,000 ml @ 100 mls/ 530 / 530 hr IV .Q10H [facility] Rx#:[id number] Oral 340 / 340 0 / 340 Output: Urine 1150 / 1400 250 / 1400 Other: Weight 65.5 kg (1) Acute heart failure Heart failure type: unspecified Qualified Code(s): I50.9 - Heart failure, unspecified
[2019-11-04] MEDS ORDERED: Heparin IV Standard *NO* Bolus ONE (10:28)
[2019-11-04] MEDS ORDERED: HEPARIN SODIUM/DEXTROSE 25,000 UNITS/500 ML BAG IV SCH (10:30)
[2019-11-04] MEDS: HEPARIN SODIUM/DEXTROSE 25,000 UNITS/500 ML BAG IV SCH (10:41)
[2019-11-04] MEDS ORDERED: AMIODARONE 200 MG TAB PO ONE (10:45)
--- NOTE | 2019-11-04 12:33 | Hospitalist Progress Note ---
Date of Service November 04, 2019 Assessment & Plan (1) Acute heart failure: Acute systolic and diastolic CHF treated with IV Lasix Presented with pulmonary edema on CXR, suspect it is due to afib with RVR rales in bases on exam-now resolved after brisk diuresis Echo with EF reduced at 35-40%, diastolic dysfunction this is a change from prior echo with preserved EF Cardiology consult appreciated--> now s/p left heart cath 11/02, Cardiology recs as below: "Study demonstrates high-grade ostial left main stenosis previously present at time of chronic bypass grafting in 2006 PRATT graft to the LAD remains patent without compromise. Right coronary artery without significant disease Saphenous vein graft to the circumflex obtuse marginal is occluded. Circumflex distribution, moderately large, is at risk for ischemia given critical left main disease Coronary invention relatively high risk given location but could be performed given PRATT graft protection EKGs and minimal flat elevation of troponins do not suggest acute myocardial injury as culprit for congestive heart failure/cardiomyopathy but underlying ischemic heart disease certainly contributing Recommendations: -continue to treat congestive heart failure-no lasix today -continue to treat hypertension -needs improved control of atrial fibrillation with persistently elevated rates --> needs rhythm control and rate control prior to complex intervention at [facility] -see below for Afib -continue Toprol XL 50mg po tid -will restart lisinopril at lower dose with hold parameters this evening given continued soft BPs (2) Chest pain: Had chest pressure that correlated with palpitations-none in days troponin is only 0.04/0.046/0.039 serially, no ischemic changes on EKG suspect patient was experiencing some rapid heart rates with afib, causing some angina continue metoprolol aspirin 81mg daily -dcd nitropaste for hypotension (3) Atrial fibrillation: chronic, now with some RVR, rates still not controlled despite increasing dose of Toprol to 50 tid -starting amiodarone 200mg po bid -continue heparin gtt for now as may need intervention at [facility] in near future -continue Toprol XL 50mg po tid follow on tele (4) Hypertension: as above, with hypotension now improved with dc-ing nitropaste and holding lisinopril -continue metoprolol 50 tid -restart lisinopril as above for CHF at 10mg daily (home dose 40mg) (5) Mitral regurgitation: noted on ECHO moderate (6) Hypercholesterolemia: Simvastatin (7) Hypokalemia: replaced and resolved (8) Tricuspid regurgitation: severe on ECHO (9) Aortic insufficiency: mild on ECHO (10) DVT prophylaxis: Heparin gtt Dispo-continued stay, possible transfer to [facility] for complex cardiac intervention after rates controlled of Afib Admission and Anticipated Discharge Date Admission Date: November 02, 2019 Subjective Feeling much better today. No CP, no SOB. No lightheadedness or nausea. Eating well. Just starte don amiodarone and doing well. Remains in Afib with rates in the 100-120s. I discussed the case with Dr. Cruz of Cardiology Review of Systems Review of Systems: All systems reviewed & are unremarkable except as noted in HPI & below Physical Exam Constitutional: WD/WN, vitals as above Eyes: + anicteric sclerae Neck: trachea midline, no thyromegaly Respiratory: normal respiratory effort, lungs clear to auscultation Cardiovascular: Rate/Rhythm: + tachycardic and + irregularly irregular Heart Sounds: + murmur (3/6 ARIELLE at [facility]) Extremities: no edema Chest (Breasts): Chest: normal inspection of chest Gastrointestinal (Abdomen): normal bowel sounds, soft, nontender, no hepatosplenomegaly Musculoskeletal: Extremities: extremities normal to inspection; no cyanosis and no clubbing Skin: no rashes, warm and dry Neurologic: moves all extremities and awake; no focal motor deficits Psychiatric: A+Ox3, euthymic affect Lymphatic: no lymphedema Results & Data Results & Data ([facility]) Vital Signs (Past 12 Hours) Vital Signs Temp Pulse Pulse Resp BP Pulse Ox 11/04/19 10:58 36.4 C L 80 19 94/59 L 96 11/04/19 09:19 94 H 11/04/19 07:06 37.0 C 109 H 18 118/81 96 11/04/19 03:20 36.9 C 102 H 18 106/68 95 Laboratory Results 11/04/19 11/04/19 11/04/19 Range/Units 07:34 07:34 07:34 WBC (4.8-10.8) K/uL RBC (4.2-5.4) M/uL Hgb (12.0-16.0) g/dL Hct (37-47) % MCV (80-100) fL MCH (25-34) pg MCHC (32-36) g/dL RDW Std Deviation (36.4-46.3) fL RDW Coeff of Alyssa (11.5-14.5) % Plt Count (130-400) K/uL MPV (7.4-10.4) fL Immature Gran % (Auto) % Neut % (Auto) % Lymph % (Auto) % [place] % (Auto) % Eos % (Auto) % Baso % (Auto) % Neut # (Auto) (1.4-6.5) K/uL Lymph # (Auto) (1.2-3.4) K/uL [place] # (Auto) (0.11-0.59) K/uL Eos # (Auto) (0-0.5) K/uL Baso # (Auto) (0-0.2) K/uL Immature Gran # (Auto) (0.00-0.02) K/uL APTT 87.7 H* (21.0-31.0) Seconds PTT Ratio 3.1 Sodium 138 (136-145) mmol/L Potassium 4.1 D (3.5-5.1) mmol/L Chloride 107 (98-107) mmol/L Carbon Dioxide 25 (21-32) mmol/L Anion Gap 6.0 (3-11) BUN 17 (7-18) mg/dl Creatinine 0.77 (0.6-1.2) mg/dl Est Cr Clr Drug Dosing 55.4 ml/min Est GFR ( Amer) 88.2 Est GFR (Non-Af Amer) 76.1 BUN/Creatinine Ratio 21.9 H (10-20) Glucose 88 (70-99) mg/dl Calcium 8.7 (8.5-10.1) mg/dl Magnesium 2.2 (1.8-2.4) mg/dl TSH 1.210 (0.300-4.500) uIu/ml 11/04/19 11/04/19 11/03/19 Range/Units 07:34 00:52 17:27 WBC 5.54 7.99 (4.8-10.8) K/uL RBC 3.42 L 3.25 L (4.2-5.4) M/uL Hgb 10.2 L 9.7 L (12.0-16.0) g/dL Hct 30.5 L 29.0 L (37-47) % MCV 89.2 89.2 (80-100) fL MCH 29.8 29.8 (25-34) pg MCHC 33.4 33.4 (32-36) g/dL RDW Std Deviation 40.6 41.1 (36.4-46.3) fL RDW Coeff of Alyssa 12.8 12.7 (11.5-14.5) % Plt Count 246 259 (130-400) K/uL MPV 10.6 H 10.6 H (7.4-10.4) fL Immature Gran % (Auto) 0.0 0.1 % Neut % (Auto) 58.2 69.6 % Lymph % (Auto) 24.7 15.4 % [place] % (Auto) 13.0 12.9 % Eos % (Auto) 3.4 1.6 % Baso % (Auto) 0.7 0.4 % Neut # (Auto) 3.22 5.56 (1.4-6.5) K/uL Lymph # (Auto) 1.37 1.23 (1.2-3.4) K/uL [place] # (Auto) 0.72 H 1.03 H (0.11-0.59) K/uL Eos # (Auto) 0.19 0.13 (0-0.5) K/uL Baso # (Auto) 0.04 0.03 (0-0.2) K/uL Immature Gran # (Auto) 0.00 0.01 (0.00-0.02) K/uL APTT 34.2 H (21.0-31.0) Seconds PTT Ratio 1.2 Sodium (136-145) mmol/L Potassium (3.5-5.1) mmol/L Chloride (98-107) mmol/L Carbon Dioxide (21-32) mmol/L Anion Gap (3-11) BUN (7-18) mg/dl Creatinine (0.6-1.2) mg/dl Est Cr Clr Drug Dosing ml/min Est GFR ( Amer) Est GFR (Non-Af Amer) BUN/Creatinine Ratio (10-20) Glucose (70-99) mg/dl Calcium (8.5-10.1) mg/dl Magnesium (1.8-2.4) mg/dl TSH (0.300-4.500) uIu/ml PG Care Time/CCT Total # of Minutes Spent Total Time Spent with Patient: Total time spent is greater than 50% in coordination of care (as documented) at patient's floor/unit and/or counseling patient: Coding Level of Care Code 65291 Subseq Hosp Care Lvl 3 Diagnoses Acute heart failure I50.9 Heart failure type: unspecified Chest pain R07.9 Chest pain type: unspecified Atrial fibrillation I48.91 Hypertension I10 Mitral regurgitation I34.0 Hypercholesterolemia E78.00 Hypokalemia E87.6 Tricuspid regurgitation I07.1 Aortic insufficiency I35.1 DVT prophylaxis Z29.9 (1) Acute heart failure Heart failure type: unspecified Qualified Code(s): I50.9 - Heart failure, unspecified (2) Chest pain Chest pain type: unspecified Qualified Code(s): R07.9 - Chest pain, unspecified
[2019-11-04 15:12] LABS: Partial Thromboplastin Ratio 1.4; Partial Thromboplastin Time 38.9 Seconds (21.0-31.0)
[2019-11-04] MEDS: AMIODARONE 200 MG TAB PO SCH (16:06)
[2019-11-04] MEDS: lisinopriL 10 MG TAB PO SCH (16:08)
--- NOTE | 2019-11-04 19:42 | Anesthesiology Consultation ---
Date of Service November 04, 2019 Assessment & Plan Chart Review Chart Review: Acceptable Risk for Surgery and Patient NOT seen in Pre Admission Testing Consults Requested none ASA ASA4 Proposed Anesthesia Anesthesia Type: MAC Additional Comments: no covid test History Surgery Operation Date: 11/03/19 09:00 Proposed Procedures p Cardiac Cath Procedure - Skip Lopez MD Height/Weight Height: 5 ft 4 in Weight: 65.5 kg Allergies Allergy/AdvReac Type Severity Reaction Status Date / Time No Known Drug Allergies Allergy Unknown . Verified 11/02/19 07:53 Medications Home Medications Medication Instructions Recorded Confirmed Last Taken nitroglycerin 0.4 mg sublingual 0.4 mg SL UD PRN #25 tab 09/09/18 11/02/19 Un known tablet timolol maleate 0.25 % eye drops 1 drp OPB QAM ml 10/01/18 11/02/19 11/02/19 apixaban [Eliquis] 5 mg PO BID 03/22/19 11/02/19 11/02/19 metoprolol tartrate 25 mg PO QAM 03/22/19 11/02/19 11/02/19 bimatoprost [Lumigan] 1 drp OPB DAILY@2300 11/02/19 11/02/19 11/01/19 calcium carbonate-vitamin D3 1 tab PO QAM 11/02/19 11/02/19 11/02/19 [Calcium 500 + D] docusate sodium [Colace] 100 mg PO QAM 11/02/19 11/02/19 11/02/19 furosemide 20 mg PO MOTUWETHFR 11/02/19 11/02/19 11/02/19 lisinopril 40 mg PO DAILY@1700 11/02/19 11/02/19 11/01/19 17:00 potassium chloride 20 meq PO HS 11/02/19 11/02/19 11/01/19 simvastatin 80 mg PO HS 11/02/19 11/02/19 11/01/19 Active Medications Generic Name Dose Route Start Last Admin Trade Name Freq PRN Reason Stop Dose Admin Acetaminophen 650 mg 11/02/19 10:00 11/02/19 19:41 Tylenol PO 12/02/19 09:59 650 mg Q4H PRN Administration Pain or Fever Amiodarone HCl 200 mg 11/04/19 17:00 11/04/19 16:06 Cordarone PO 12/04/19 16:59 200 mg BIDM YUDITH Administration Bimatoprost 1 drops 11/02/19 23:00 11/03/19 20:50 Lumigan 0.01% OP 12/02/19 22:59 1 drops DAILY@2300 YUDITH Administration Docusate Sodium 100 mg 11/02/19 10:00 11/04/19 09:00 Colace PO 12/02/19 09:59 100 mg QAM YUDITH Administration Heparin Sodium/Dextrose 25,000 units in 500 mls @ 16 mls/hr 11/03/19 19:00 11/04/19 19:14 Heparin Sodium/Dextrose IV 12/03/19 18:59 800 units/hr .Q24H YUD[facility] 16 mls/hr Titration Protocol 800 UNITS/HR Lisinopril 10 mg 11/04/19 17:00 11/04/19 16:08 Zestril PO 12/04/19 16:59 10 mg DAILY@1700 YUDITH Administration Metoprolol Succinate 50 mg 11/03/19 14:00 11/04/19 14:22 Toprol Xl PO 12/03/19 13:59 50 mg TID YUDITH Administration Multivitamins/Minerals 1 tab 11/02/19 10:00 11/04/19 09:00 Caltrate Plus PO 12/02/19 09:59 1 tab QAM YUDITH Administration Timolol Maleate 1 drops 11/02/19 10:00 11/04/19 09:01 Timoptic-Xe 0.5% Oph OPB 12/02/19 09:59 1 drops QAM YUDITH Administration Past Medical History Medical History Aortic insufficiency Atrial fibrillation (Chronic) CAD S/P percutaneous coronary angioplasty (Chronic) Coronary artery disease of bypass graft of [place] heart with stable angina pectoris Hypercholesterolemia (Chronic) Hypertension (Chronic) Hypokalemia (Chronic) Mitral regurgitation (Acute) Tricuspid regurgitation Exercise / Class Metabolic Activity III < 4 Walking/Shop/Light housework Past Family History Family History Mother Heart disease Hypertension Father Heart disease Hypertension Denies family history of Ovarian cancer Prostate cancer Myocardial infarction Breast cancer Colorectal cancer Past Anesthesia History No Hx of Anesthesia Complications and No Family Hx of Anesthesia Complications History of PONV No Hx of PONV and No Hx of Motion Sickness Social History Smoking Status: Never smoker Hx Alcohol Use: No Hx Substance Use: No Physical Exam Vital Signs Last Vital Signs Temp 36.3 C L 11/04/19 15:50 Pulse 104 H 11/04/19 15:50 Resp 18 11/04/19 15:50 BP 115/73 11/04/19 15:50 Pulse Ox 95 11/04/19 15:50 Testing Laboratory Results 11/04/19 07:34 11/04/19 07:34 PT 11.4 Seconds (9.0-12.0) 11/02/19 07:40 INR 1.1 (0.9-1.1) 11/02/19 07:40 APTT 38.9 Seconds (21.0-31.0) H 11/04/19 14:55 Electrocardiogram Date: 11/04/19 Findings: + AFIB @ (at 89 w/ RVR;LAFB;septal infarct,age?) Chest X-Ray Date: 11/02/19 Findings: + cardiomegaly and + pulmonary vascular congestion Echocardiogram Date: 11/02/19 EF: 35% LV Function: dysfunctional RWMA: + hypokinetic (moderate global HK) Other Findings: + atrial enlargement (Severe LAE;Mod. MARIAN), + LVH (mod.) and + diastolic dysfunction (grade 2) Valvular Disease: + AI (mild) and + MR (mod.) Severe TR
[2019-11-04] MEDS: BIMATOPROST 0.01% OP SOLN 2.5 ML BTL OP SCH (21:00)
[2019-11-04] MEDS ORDERED: SIMVASTATIN 10 MG TAB PO SCH (21:00)
[2019-11-04 22:23] LABS: Partial Thromboplastin Ratio 2.1
[2019-11-04 22:42] LABS: Partial Thromboplastin Time 59.9 Seconds (21.0-31.0)
[2019-11-05] MEDS: ACETAMINOPHEN 325 MG TAB PO PRN (04:43)
[2019-11-05 06:01] LABS: BUN Creatinine Ratio 17.1 (10-20); Calcium 8.1 mg/dl (8.5-10.1); Est GFR (African American) 76.1; Est GFR (Non-African American) 65.6; Magnesium 1.9 mg/dl (1.8-2.4); Potassium 4.1 mmol/L (3.5-5.1)
[2019-11-05 06:05] LABS: Partial Thromboplastin Ratio 1.6
[2019-11-05 06:12] LABS: Partial Thromboplastin Time 45.8 Seconds (21.0-31.0)
[2019-11-05] MEDS ORDERED: HEPARIN IV BOLUS 2,000 UNITS in SYRINGE 0 ML IV ONE (06:45)
[2019-11-05] MEDS ORDERED: FUROSEMIDE 20 MG in SYRINGE 0 ML IV ONE (08:56)
[2019-11-05] MEDS ORDERED: APIXABAN 5 MG TABLET PO SCH (09:00)
--- NOTE | 2019-11-05 09:20 | Cardiology Progress Note ---
Date of Service November 05, 2019 Assessment & Plan (1) Acute HFrEF (heart failure with reduced ejection fraction): Patient presented complaint of exertional chest pressure was very concerning for angina. Echocardiogram this admission revealed new moderate left ventricular systolic dysfunction, LVEF 35 to 40%, with noted normal LVEF on outpatient echo February,. Valvular heart disease was noted including mild aortic valve regurgitation, moderate mitral regurgitation, and severe tricuspid regurgitation. Severe left atrial enlargement noted, moderate right atrial enlargement. The patient was also noted to be in atrial fibrillation with rapid ventricular response this admission, and was volume overloaded. She had previously been noted to have paroxysmal atrial fibrillation, 34% atrial fibrillation burden on [employer] March,. Cardiac catheterization performed 11/03/2019 revealing patent right coronary artery without significant obstruction. Severe left main coronary artery disease noted along with [place] LAD disease, with patent PRATT to LAD graft. The SVG to the circumflex obtuse marginal territory was occluded, likely on a chronic basis, with stenosis noted in the circumflex. I reviewed the films, and of the circumflex stenosis could very well be a culprit for angina, it supplies a relatively small territory. I do not think this occlusion or the vein graft occlusion appears to be an acute issue that just occurred, as the heart catheterization findings do not suggest recent acute thrombotic occlusion, and the vessel supplies a relatively small territory myocardium, and I do not think this stenosis likely explains her recent decline in LVEF. Her angina was likely on the basis of volume overload, atrial fibrillation with rapid ventricular response. At present, recommend ongoing rate control, metoprolol succinate 50 mg 3 times daily, and amiodarone 200 mg twice daily was started yesterday. Her LFTs and TSH this admission were within normal limits, and I think she is a reasonable amiodarone candidate at least for a short-term, and I had gone over the benefits and risks of amiodarone treatment with the patient and her family at the bedside on 11/04/2019. We discussed proceeding with direct-current cardioversion today. This however would require a COVID-19 screen that would take a few days to get back, and the patient favors conservative management at present and avoiding this procedure. I think it is reasonable therefore to continue rate control and initiation of amiodarone, the patient is feeling well and able to ambulate with reasonably well-controlled rates and lack of symptoms today, we can consider discharge later today for outpatient follow-up. If within 4 weeks of follow-up she is still in atrial fibrillation, outpatient cardioversion transesophageal echocardiogram can be performed as an outpatient after she has been on 4 weeks of uninterrupted Eliquis. Coagulation was interrupted briefly for several hours during his hospital stay for cardiac catheterization. Future considerations however may include an outpatient transesophageal echocardiogram for further quantification of the mitral and tricuspid valve disease as this may be contributing to her recent clinical decline. I think we will get the most accurate measurements however after the patient is optimized from a heart rate and volume status and this can be reconsidered as an outpatient performed at the time of cardioversion or separately. (2) CAD (coronary artery disease): Findings discussed above medical therapy including aspirin, metoprolol, simvastatin. (3) Hypercholesterolemia: Hospital treatment with simvastatin 80 mg daily has been reduced to 10 mg daily given addition of amiodarone. DVT prophylaxis: Patient's unfractionated heparin infusion has been discontinued, she is to transition back to Eliquis 5 mg twice daily, first dose this morning 9 AM. Disposition: Patient to be reassessed after walking today and after receiving a dose of IV furosemide. Possible discharge later today. Will comment on medication plan in advance of discharge. Admission and Anticipated Discharge Date Admission Date: November 02, 2019 Subjective Patient states that she feels well. She denies shortness of breath although she has been mostly bedbound. Telemetry reveals ongoing atrial fibrillation in the range of 90 to 110 bpm while in bed. Review of Systems Review of Systems: All systems reviewed & are unremarkable except as noted in HPI & below Physical Exam Physical Exam: Temp Pulse Resp BP Pulse Ox 36.5 C 106 H 18 117/68 97 11/05/19 08:23 11/05/19 08:53 11/05/19 08:23 11/05/19 08:23 11/05/19 08:23 Constitutional: WD/WN, vitals as above Respiratory: normal respiratory effort, lungs clear to auscultation Cardiovascular: Rate/Rhythm: + irregularly irregular Heart Sounds: + murmur (I/ systolic murmur) Vessels: no JVD Extremities: no edema Gastrointestinal (Abdomen): normal bowel sounds, soft, nontender, no hepatosplenomegaly Neurologic: PERRL, EOMI, accommodation nl, no face palsy, no dysarthria Results & Data ([facility]) Vital Signs (Past 12 Hours) Vital Signs Temp Pulse Pulse Resp BP Pulse Ox Pulse Ox 11/05/19 08:53 106 H 11/05/19 08:23 36.5 C 132 H 18 117/68 97 11/05/19 03:05 36.5 C 98 H 18 103/62 96 11/05/19 00:16 36.5 C 84 16 100/65 95 11/05/19 00:00 95 Laboratory Results Coagulation 11/04/19 11/04/19 11/05/19 Range/Units 14:55 21:52 05:31 APTT 38.9 H 59.9 H* 45.8 H* (21.0-31.0) Seconds Comprehensive Metabolic Panel 11/05/19 Range/Units 05:31 Sodium 141 (136-145) mmol/L Potassium 4.1 (3.5-5.1) mmol/L Chloride 111 H (98-107) mmol/L Carbon Dioxide 25 (21-32) mmol/L BUN 15 (7-18) mg/dl Creatinine 0.87 (0.6-1.2) mg/dl Glucose 92 (70-99) mg/dl Calcium 8.1 L (8.5-10.1) mg/dl Intake and Output 11/04/19 11/05/19 11/05/19 22:59 06:59 14:59 Intake Total 319.1 / 809.366 121.333 / 809.366 15.867 / 15.867 Output Total 500 / 1700 700 / 1700 Balance -180.9 / -890.634 -578.667 / -890.634 15.867 / 15.867 Intake: IV 184.1 / 324.366 121.333 / 324.366 15.867 / 15.867 HEPARIN SODIUM/DEXTROSE 25,000 184.1 / 324.366 121.333 / 324.366 15.867 / 15.867 units In 500 ml @ 800 UNITS/HR 16 mls/hr IV .Q24H [facility] Rx#: [id number] Oral 135 / 485 Output: Urine 500 / 1700 700 / 1700 Other: Weight 65.5 kg Medications Administered Current Inpatient Medications Acetaminophen (Acetaminophen 325 Mg Tab) 650 mg PO Q4H PRN PRN Reason: Pain or Fever Stop: 12/02/19 09:59 Last Admin: 11/05/19 04:43 Dose: 650 mg Documented by: Amiodarone HCl (Cordarone) 200 mg PO BIDM [facility] Stop: 12/04/19 16:59 Last Admin: 11/04/19 16:06 Dose: 200 mg Documented by: Apixaban (Apixaban 5 Mg Tablet) 5 mg PO BID [facility] Stop: 12/05/19 08:59 Bimatoprost (Lumigan 0.01%) 1 drops OP DAILY@2300 [facility] Stop: 12/02/19 22:59 Last Admin: 11/04/19 21:00 Dose: 1 drops Documented by: Docusate Sodium (Colace) 100 mg PO QAM [facility] Stop: 12/02/19 09:59 Last Admin: 11/04/19 09:00 Dose: 100 mg Documented by: Lisinopril (Zestril) 10 mg PO DAILY@1700 [facility] Stop: 12/04/19 16:59 Last Admin: 11/04/19 16:08 Dose: 10 mg Documented by: Metoprolol Succinate (Toprol Xl) 50 mg PO TID [facility] Stop: 12/03/19 13:59 Last Admin: 11/04/19 21:00 Dose: 50 mg Documented by: Metoprolol Tartrate (Lopressor) 5 mg IV Q4 PRN PRN Reason: tachycardia Stop: 12/02/19 11:59 Multivitamins/Minerals ([facility]trate Plus) [facility] Stop: 12/02/19 09:59 Last Admin: 11/04/19 09:00 Dose: 1 tab Documented by: Simvastatin (Zocor) 10 mg PO PM [facility] Stop: 12/04/19 20:59 Last Admin: 11/04/19 21:00 Dose: 10 mg Documented by: Timolol Maleate (Timoptic-Xe 0.5% Oph) 1 drops OPB [facility] Stop: 12/02/19 09:59 Last Admin: 11/04/19 09:01 Dose: 1 drops Documented by:
[2019-11-05] MEDS: METOPROLOL SUCC 50MG EXT REL TAB PO SCH ×2 (10:02→14:52)
[2019-11-05] MEDS: CALCIUM 600MG + VIT D 400 IU TAB PO SCH (10:03)
[2019-11-05] MEDS: AMIODARONE 200 MG TAB PO SCH ×2 (10:03→17:47)
[2019-11-05] MEDS: DOCUSATE SODIUM 100 MG CAP PO SCH (10:03)
[2019-11-05] MEDS: TIMOLOL GFS 0.5% OPH SOLN 74 DROPS/5 ML BTL OPB SCH (10:03)
[2019-11-05] MEDS: HEPARIN SODIUM/DEXTROSE 25,000 UNITS/500 ML BAG IV SCH (10:08)
--- NOTE | 2019-11-05 13:59 | Communication Note ---
Date of Service: November 05, 2019 Patient ambulated in the hallway with the assistance of her nurse. Her ventricular rates were relatively well controlled, only increasing into the 110's. The patient however did require a support, and is perhaps suffering from deconditioning having been in bed for a few days. I discussed this with Dr. Patton, and a physical therapy evaluation requested. Consideration toward a quad cane at discharge may be necessary as well. From a cardiac perspective, patient is stable for discharge when deemed stable from a physical therapy standpoint, with cardiac medications as follows: Metoprolol succinate 50 mg 3 times daily, increased compared to metoprolol tartrate 25 mg daily which was her prior to hospital dose. Amiodarone 200 mg twice daily, new medication. Eliquis 5 mg twice daily, unchanged compared to previous home dose. Furosemide 20 mg p.o. daily. Lisinopril 10 mg daily, reduced from 40 mg daily Potassium chloride 20 mEq daily at bedtime Simvastatin 10 mg daily, reduced from 80 mg daily due to amiodarone treatment Cardiology follow-up in 1 to 2 weeks is recommended. I will message our office.
--- NOTE | 2019-11-05 17:03 | Discharge Summary ---
Date of Service November 05, 2019 Admission HPI Per Admitting Provider 74 yo female with history of CAD with CABG x 3, chronic atrial fibrillation, hypertension, dyslipidemia and peripheral edema who presented to the ED this morning with complaints of chest pressure at rest. She describes the sensation as more of a pressure, holds her hand to her chest, she says it started yesterday evening and persisted most of the night. She also experienced some palpitations and fluttering, started yesterday and she has a history of atrial fibrillation. She says she normally does not get chest pressure, denies getting exertional chest pressure. She says she does not feel short of breath but her son at the bedside says she definitely is more short of breath yesterday and today. She took all of her medications this morning including Toprol 100mg. She says she was started on Lasix 20mg on Mon-Fri by Jean Claude Corona a week ago. She says she sees an increase in urine output in the morning but her leg edema has not improved. She does not weigh herself everyday, only sporadic so she is unsure of any weight gain or loss over past week. She has not had an echo since last year. She denies any fever/chills, cough, abdominal symptoms. She says she feels better since she had nitro paste and Lasix 40mg IV in the ED. CXR showed pulmonary edema, EKG with Afib and no ischemic changes. Troponin was 0.04 and Cr was 0.98, K 4.6, BNP 3524. I discussed with Dr. Eduardo in the ED and I let Dr. Rivera know about the admission since [facility] [address] cardiology follows as outpatient. Principal Diagnosis Rapid atrial fibrillation, Acute systolic CHF, Chest pain, Severe CAD Discharge Exam Constitutional WD/WN, vitals as above Eyes + anicteric sclerae Neck trachea midline, no thyromegaly Respiratory normal respiratory effort, lungs clear to auscultation Cardiovascular Rate/Rhythm: regular rate and + irregularly irregular Heart Sounds: + murmur (3/6 ARIELLE at [facility]) Extremities: no edema Chest (Breasts) Chest: normal inspection of chest Gastrointestinal (Abdomen) normal bowel sounds, soft, nontender, no hepatosplenomegaly Musculoskeletal Extremities: extremities normal to inspection; no cyanosis and no clubbing Skin no rashes, warm and dry Neurologic moves all extremities and awake; no focal motor deficits Psychiatric A+Ox3, euthymic affect Lymphatic no lymphedema Discharge Data Allergies Allergy/AdvReac Type Severity Reaction Status Date / Time No Known Drug Allergies Allergy Unknown . Verified 11/02/19 07:53 Consultations 11/02/19 08:33 ED Decision to Admit Stat 11/02/19 10:00 Consult Cardiology Routine 11/03/19 09:00 Consult Cardiac Catheterization Routine Procedures Performed Operation Date: 11/03/19 09:00 Actual Procedures s Cineradiography w/Routine Exam - Skip Lopez MD p Cath, Left w/Cors Vent Grafts - Skip Lopez MD Operation Date: 11/05/19 11:00 <No data on this case meets the specified criteria> Ordered Studies 11/03/19 09:12 CL Cath Imgs for PACS use only Routine CXR ECHO Hospital Course (1) Acute heart failure: Acute systolic and diastolic CHF treated with IV Lasix Presented with pulmonary edema on CXR, suspect it is due to afib with RVR rales in bases on exam-now resolved after brisk diuresis Echo with EF reduced at 35-40%, diastolic dysfunction this is a change from prior echo with preserved EF Cardiology consult appreciated--> now s/p left heart cath 11/02, Cardiology recs as below: "Study demonstrates high-grade ostial left main stenosis previously present at time of chronic bypass grafting in 2006 PRATT graft to the LAD remains patent without compromise. Right coronary artery without significant disease Saphenous vein graft to the circumflex obtuse marginal is occluded. Circumflex distribution, moderately large, is at risk for ischemia given critical left main disease Coronary invention relatively high risk given location but could be performed given PRATT graft protection EKGs and minimal flat elevation of troponins do not suggest acute myocardial injury as culprit for congestive heart failure/cardiomyopathy but underlying ischemic heart disease certainly contributing Recommendations: -continue to treat congestive heart failure-lasix daily, Toprol XL, lisinopril -continue to treat hypertension -needs improved control of atrial fibrillation with persistently elevated rates --> needs rhythm control and rate control prior to complex intervention at [place] -see below for Afib -continue Toprol XL 50mg po tid -will restart lisinopril at lower dose of 10mg daily as dose of metoprolol was increased and had lower BPs with that (2) Chest pain: Had chest pressure that correlated with palpitations-none in days troponin is only 0.04/0.046/0.039 serially, no ischemic changes on EKG suspect patient was experiencing some rapid heart rates with afib, causing some angina Had cardiac cath as above for new CM continue metoprolol succinate 50mg po tid aspirin 81mg daily (3) Atrial fibrillation: chronic, now with some RVR here, rates are better controlled but still into the 110s with walking, 90-100s at rest -started amiodarone 200mg po bid for rhythm control strategy -continue Eliquis -continue Toprol XL 50mg po tid (change from previous of metoprolol tartrate 25mg once daily) F/u with Cardio in 1-2 weeks, may consider DCCV in 4 weeks (4) Hypertension: as above, with hypotension now improved with dc-ing nitropaste and holding lisinopril -continue metoprolol 50 tid -restarted lisinopril as above for CHF at 10mg daily (home dose 40mg) (5) Mitral regurgitation: noted on ECHO moderate (6) Hypercholesterolemia: Simvastatin dose lowered to 10mg due to starting amiodarone (7) Hypokalemia: replaced and resolved (8) Tricuspid regurgitation: severe on ECHO (9) Aortic insufficiency: mild on ECHO (10) DVT prophylaxis: Heparin gtt and then back to Eliquis Dispo-cstable for dc to home PT/OT evaluations performed and pt stable to go home Total Time Total Time Spent Total Time Spent (In Minutes): >30 min Total Time Includes: Examination of the Patient, Discharge Planning, Medication Reconciliation and Communication With Other Providers (Cardiology) Discharge Plan Discharge Items Patient Disposition: Home - Self-Care Reason For Visit: ACUTE PULMONARY EDEMA, CHEST PAIN Discharge Diagnosis: Congestive Heart failure, Rapid atrial fibrillation, Coronary artery disease Condition on Discharge: Good Activity: As commented below Lifting: No more than 5 pounds Bathing: No limitations Exercise/Sports: Wait until after follow-up appointment Driving/Machine Use: Wait until after follow up appointment Non-emergency contact: Primary Care Provider and Paraoptometric Call non-emergency contact if: you have any medication questions and your sympto ms worsen Follow-up/Referrals: Pascale Guevara MD [Primary Care Provider] - (Please follow up within 1-2 weeks) Skip Lopez MD [Physician] - (Follow up in 1-2 weeks.) Diet: Heart Healthy Addtl Attending Provider Instructions: You were admitted for chest pain, rapid atrial fibrillation,and found to have congestive heart failure. You were given IV lasix and lost a lot of fluid. The cardiac catheterization did show a blockage in your heart that may need to be fixed. You were started on amiodarone to try to convert our heart to a normal rhythm. Several of your other medications were changed in dosing as well. Please follow the medication list closely. Follow up with your Paraoptometric and your PCP within 1-2 weeks. Pending Studies at Discharge: No Stand-Alone Forms: My [facility] Medications and DC Order Prescriptions: New amiodarone 200 mg Tablet 200 mg PO BIDM Qty: 60 RF: 0 metoprolol succinate 50 mg Tablet Extended Release 24 Hr 50 mg PO TID Qty: 90 RF: 0 simvastatin 10 mg Tablet 10 mg PO PM Qty: 30 RF: 0 lisinopril 10 mg Tablet 10 mg PO DAILY@1700 Qty: 30 RF: 0 Continued nitroglycerin 0.4 mg tablet, sublingual 0.4 mg SL UD PRN (Reason: Chest Pain) Qty: 25 RF: 0 timolol maleate 0.25 % drops 1 drp OPB QAM RF: 0 Eliquis 5 mg tablet 5 mg PO BID RF: 0 docusate sodium [Colace] 100 mg Capsule 100 mg PO QAM RF: 0 calcium carbonate-vitamin D3 [Calcium 500 + D] 500 mg(1,250mg) -400 unit Tablet 1 tab PO QAM RF: 0 Lumigan 0.01 % drops 1 drp OPB DAILY@2300 RF: 0 potassium chloride 10 mEq capsule, extended release 20 meq PO HS RF: 0 Changed furosemide 20 mg tablet 20 mg PO QAM Qty: 30 RF: 0 Discontinued metoprolol tartrate 25 mg tablet 25 mg PO QAM RF: 0 simvastatin 80 mg tablet 80 mg PO HS RF: 0 lisinopril 40 mg tablet 40 mg PO DAILY@1700 RF: 0 Discharge Orders: Discharge Order (Routine); Ordered 11/05/19 Ordered By: Belinda Patton Admission Data Admit Date/Time: 11/02/19 08:44 Attending Provider: Belinda Patton Admit Provider: Ren Sagastume Primary Care Provider: Pascale Guevara Other Providers: Ren Sagastume ; Isai Rivera ; Skip Lopez Coding Level of Care Code D/C Day Management >30 mins Diagnoses Acute heart failure I50.9 Heart failure type: unspecified Chest pain R07.9 Chest pain type: unspecified Atrial fibrillation I48.91 Hypertension I10 Mitral regurgitation I34.0 Hypercholesterolemia E78.00 Hypokalemia E87.6 Tricuspid regurgitation I07.1 Aortic insufficiency I35.1 DVT prophylaxis Z29.9
[2019-11-05] MEDS: lisinopriL 10 MG TAB PO SCH (17:47)
--- NOTE | 2019-11-05 23:41 | Electrocardiogram Report ---
Test Reason : Blood Pressure : / mmHG Vent. Rate : 101 BPM Atrial Rate : 104 BPM P-R Int : 000 ms QRS Dur : 084 ms QT Int : 308 ms P-R-T Axes : 000 -46 -30 degrees QTc Int : 399 ms Poor data quality, interpretation may be adversely affected Atrial fibrillation with rapid ventricular response Left anterior fascicular block Septal infarct (cited on or before 03-NOV-2019) Abnormal ECG When compared with ECG of 03-NOV-2019 06:47, QT has shortened Confirmed by Antolin Valadez ([id number]) on 11/05/2019 11:41:15 PM Referred By: REFERRED SELF Confirmed By:Antolin Valadez
--- NOTE | 2019-11-11 10:35 | Anesthesiology Progress Note ---
Date of Service November 11, 2019 Anesthesia Post Procedure Pain Intensity Head: Pain Intensity: 0 Transfer of Care Handoff Completed per policy Notes Mental Status: alert / awake / arousable Patient Amnestic to Procedure: Yes Nausea / Vomiting: adequately controlled Pain: adequately controlled Airway Patency, RR, SpO2: stable & adequate BP & HR: stable & adequate Hydration State: stable & adequate Anesthetic Complications: no major complications apparent
== END 2019-11-05 18:08 | disposition home or self-care (01) | DRG 287 ==
LOC: ED 07:16 → 2S 08:44 → SUATTDRO 08:44 → 2S 09:56

== ENCOUNTER 2019-12-14 04:23 | Inpatient (IN) ==
[2019-12-14] MEDS ORDERED: dilTIAZem HCl 5 MG/ML 5 ML VIAL IV STA (04:55)
--- NOTE | 2019-12-14 05:02 | Emergency Department Note ---
Impression & Plan Atrial fibrillation with RVR ED Provider Note NAME: DAVONTE ABREU AGE: 74 SEX: F ARRIVES VIA: Walk-In INFORMANT: Patient, the patient's son ED PROVIDER(S): Thalia Santos DO CHIEF COMPLAINT: Shortness of breath and nausea PLAN: [facility] Fair MEDICAL DECISION MAKING: This is a 74-year-old female patient with a history of atrial fibrillation who presents to the emergency department complaining of sudden onset of shortness of breath and nausea. The patient awoke from sleep feeling like this. The patient had an elective cardioversion performed [address] Lopez. The patient states that after the procedure, they changed her medications including the dose of her amiodarone. The patient has a negative troponin here today but remains in atrial fibrillation with a rapid ventricular response. Her blood pressure is stable. I have discussed case with the [facility]ist group and they will evaluate for further management. Triage Nursing notes reviewed and agree them. Additional history obtained from the patient's son who is at the bedside Prior medical records reviewed Vital Signs: reviewed and remarkable for tachycardia and hypertension Differential diagnosis: Recurrent A. fib with RVR, cardiac ischemia, electrolyte abnormality, STEMI ER treatment provided: IV Cardizem Diagnostics interpreted by me: ECG: A. fib with RVR at rate of 120. ST segment depression in leads I and aVL in the lateral leads. There is no ectopy. Cardiac Monitoring: A. fib with RVR at a rate of 122 Laboratory studies: See below Imaging studies:As per my interpretation Chest x-ray: Cardiomegaly with mild pulmonary vascular congestion and no pleural effusions HPI: 74/F arrives for evaluation of nausea and shortness of breath. Patient awoke from sleep feeling nauseated and short of breath. She took a nitroglycerin at 4 AM with no improvement in her symptoms. The patient had an elective cardioversion performed this [address] Lopez ROS: See above HPI for pertinent positives & negatives. A total of 10 Systems reviewed and were otherwise negative. PAST MEDICAL HISTORY:See Below PAST SURGICAL HISTORY:See Below FAMILY HISTORY:See Below SOCIAL HISTORY:See Below HOME MEDICATIONS:See list ALLERGIES:None VITALS:See Below PHYSICAL EXAMINATION: HEENT: Head - normocephalic and atraumatic Pupils are equal, round, and reactive to light. Extraocular eye muscles are intact, and sclera are anicteric. Nose - moist nasal mucosa without discharge. Mouth - moist buccal mucosa. Oropharynx is nonerythematous and there is no tonsillar exudate or edema noted. Neck: Supple; no JVD, nuchal rigidity, cervical lymphadenopathy. Heart: Irregularly irregular rhythm with tachycardic rate. There is a normal S1 and S2 with no murmurs, clicks, or gallops appreciated. Lungs: Clear to auscultation bilaterally with no wheezes, rales, or rhonchi. Abdomen: Soft, completely nontender, nondistended, with good bowel sounds. There are no palpable pulsatile masses or hepatosplenomegaly. There is no guarding, rigidity, or rebound noted. Extremities: No evidence of cyanosis, clubbing, or edema. There are easily palpable peripheral pulses. Skin: warm and dry with good turgor and no rashes. ED COURSE: Times/Reassessments: 0445: Patient was evaluated in room A11. An order was placed for continuous cardiac monitoring. The patient is in a atrial fibrillation with rapid ventricular response at a rate of 122. Laboratory studies were drawn as above. A twelve-lead EKG was obtained. Patient was given a dose of IV Cardizem which initially slowed her rate down briefly but then it bounced right back up. Her blood pressure remained stable. Patient's nausea seems to have subsided. She denies any chest pain. I have discussed the case with the [facility] Hospitalist and they will evaluate for further management. Thalia Santos DO Past Med/Surg History Medical History (Updated 12/15/19 @ 18:59 by Thalia Santos DO) Atrial fibrillation on eliquis CAD (coronary artery disease) CABG x2 (13 years ago) Carotid artery stenosis CHF (congestive heart failure) Chronic HFrEF (heart failure with reduced ejection fraction) Coronary artery disease of bypass graft of [place] heart with stable angina pectoris Glaucoma Hypercholesterolemia Hypertension Valvular heart disease Mild AR, Moderate posteriorly directed MR, Severe TR per 11/02/19 echo Surgical History History of bilateral tubal ligation History of cardiac cath X 2 (NO STENTS, MOST RECENT 10/2019) History of cataract surgery RT/LEFT History of colonoscopy History of coronary artery bypass graft 2 VESSELS REPAIRED/13 YEARS AGO AT [facility] Family History Mother Heart disease Hypertension Father Heart disease Hypertension Denies family history of Ovarian cancer Prostate cancer Myocardial infarction Breast cancer Colorectal cancer Social History Smoking Status: Never smoker Second Hand Exposure: No; Hx Alcohol Use: No Hx Substance Use: No Preferred Language: Turkmen Communication Ability: Effective [employer] Dispatcher Required: No Beliefs That Will Affect Care: None marital status: Current Living Situation: Family Current Living Situation Comment: SON LIVES WITH PT current occupational status: retired Feels Safe at Home: Yes Dental Care, Regularly: Yes Seatbelt Use: always Assistive Devices: None Allergies Allergies Allergy/AdvReac Type Severity Reaction Status Date / Time No Known Drug Allergies Allergy Unknown . Verified 12/14/19 05:47 Home Meds Home Medications Medication Instructions Recorded Confirmed nitroglycerin 0.4 mg sublingual 0.4 mg SL UD PRN #25 tab 09/09/18 12/14/19 tablet timolol maleate 0.25 % eye drops 1 drp OPB QAM ml 10/01/18 12/14/19 Eliquis 5 mg PO BID 03/22/19 12/14/19 Lumigan 1 drp OPB DAILY@2300 11/02/19 12/14/19 calcium carbonate-vitamin D3 1 tab PO QAM 11/02/19 12/14/19 [Calcium 500 + D] docusate sodium [Colace] 100 mg PO QAM 11/02/19 12/14/19 cholecalciferol (vitamin D3) 25 mcg PO QAM 12/09/19 12/14/19 [Vitamin D3] aspirin [Aspirin Low-Strength] 81 mg PO DAILY 12/14/19 12/14/19 Previous Rx's Medication Instructions Recorded furosemide 20 mg PO QAM #30 tab 11/05/19 simvastatin 10 mg PO PM #30 tab 11/05/19 amiodarone 200 mg PO DAILY #60 tab 12/12/19 lisinopril 10 mg PO BID17 #30 tab 12/12/19 metoprolol succinate 50 mg PO BID #90 tab 12/12/19 Results & Data (ED) Vital Signs Vital Signs - 24 hr 12/14/19 04:30 12/14/19 04:55 Temperature 36.5 C Temperature Source Oral Pulse Rate 126 H Respiratory Rate 20 Respiratory Effort / Characteristics Non-Labored Blood Pressure 154/88 H Blood Pressure Mean 110 Pulse Oximetry 95 96 Oxygen Delivery Method Room Air Room Air Sepsis Recent Fever Within 48 Hours No Sepsis New/Unexplained Change in Mental Status No Sepsis Action Taken by Nursing No Action Required Laboratory Data Result diagrams: 12/15/19 04:05 12/15/19 04:05 Lab Results 12/14/19 12/14/19 Range/Units 04:50 04:50 WBC 9.89 (4.8-10.8) K/uL RBC 3.68 L (4.2-5.4) M/uL Hgb 10.4 L (12.0-16.0) g/dL Hct 32.7 L (37-47) % MCV 88.9 (80-100) fL MCH 28.3 (25-34) pg MCHC 31.8 L (32-36) g/dL RDW Std Deviation 47.0 H (36.4-46.3) fL RDW Coeff of Alyssa 14.3 (11.5-14.5) % Plt Count 322 (130-400) K/uL MPV 10.7 H (7.4-10.4) fL Immature Gran % (Auto) 0.3 % Neut % (Auto) 74.9 % Lymph % (Auto) 14.5 % [place] % (Auto) 7.8 % Eos % (Auto) 2.1 % Baso % (Auto) 0.4 % Neut # (Auto) 7.41 H (1.4-6.5) K/uL Lymph # (Auto) 1.43 (1.2-3.4) K/uL [place] # (Auto) 0.77 H (0.11-0.59) K/uL Eos # (Auto) 0.21 (0-0.5) K/uL Baso # (Auto) 0.04 (0-0.2) K/uL Immature Gran # (Auto) 0.03 H (0.00-0.02) K/uL Sodium 141 (136-145) mmol/L Potassium 3.6 (3.5-5.1) mmol/L Chloride 110 H (98-107) mmol/L Carbon Dioxide 26 (21-32) mmol/L Anion Gap 5.0 (3-11) BUN 38 H (7-18) mg/dl Creatinine 1.06 (0.6-1.2) mg/dl Est Cr Clr Drug Dosing 44.0 ml/min Est GFR ( Amer) 59.9 Est GFR (Non-Af Amer) 51.7 BUN/Creatinine Ratio 35.7 H (10-20) Glucose 113 H (70-99) mg/dl Calcium 8.6 (8.5-10.1) mg/dl Magnesium 2.1 (1.8-2.4) mg/dl Total Bilirubin 0.4 (0.2-1) mg/dl AST 31 (15-37) U/L ALT 45 (12-78) U/L Alkaline Phosphatase 113 (45-117) U/L Total Protein 6.8 (6.4-8.2) gm/dl Albumin 3.3 L (3.4-5.0) gm/dl Globulin 3.5 (2.5-4.0) gm/dl Albumin/Globulin Ratio 0.9 (0.9-2) TSH 4.550 H (0.300-4.500) uIu/ml Free T4 1.29 (0.8-1.6) ng/dl Administered Medications Amiodarone HCl (Amiodarone 200 Mg Tab) 200 mg PO TID YUDITH Stop: 01/13/20 13:59 Last Admin: 12/15/19 13:44 Dose: 200 mg Documented by: [id number] Admin: 12/15/19 08:18 Dose: 200 mg Documented by: [id number] Admin: 12/14/19 20:42 Dose: 200 mg Documented by: [id number] Admin: 12/14/19 13:59 Dose: 200 mg Documented by: [id number] Apixaban (Apixaban 5 Mg Tablet) 5 mg PO BID YUDITH Stop: 01/13/20 08:59 Last Admin: 12/15/19 08:21 Dose: 5 mg Documented by: [id number] Admin: 12/14/19 20:41 Dose: 5 mg Documented by: [id number] Admin: 12/14/19 09:11 Dose: 5 mg Documented by: [id number] Aspirin (Aspirin 81 Mg Ectab) 81 mg PO DAILY YUDITH Stop: 01/13/20 08:59 Last Admin: 12/15/19 08:20 Dose: 81 mg Documented by: [id number] Admin: 12/14/19 09:10 Dose: 81 mg Documented by: [id number] Bimatoprost (Bimatoprost 0.01% Op Soln 2.5 Ml Btl) 1 drops OP DAILY@2300 [facility] Stop: 01/13/20 22:59 Last Admin: 12/14/19 22:54 Dose: 1 drops Documented by: [id number] Docusate Sodium (Docusate Sodium 100 Mg Cap) 100 mg PO [facility] Stop: 01/13/20 08:59 Last Admin: 12/15/19 08:21 Dose: 100 mg Documented by: [id number] Admin: 12/14/19 09:10 Dose: 100 mg Documented by: [id number] Furosemide (Furosemide 20 Mg Tab) 20 mg PO [facility] Stop: 01/14/20 08:59 Last Admin: 12/15/19 08:20 Dose: 20 mg Documented by: [id number] Lisinopril (Lisinopril 10 Mg Tab) 10 mg PO BID17 [facility] Stop: 01/13/20 08:59 Last Admin: 12/15/19 17:21 Dose: 10 mg Documented by: [id number] Admin: 12/15/19 08:21 Dose: 10 mg Documented by: [id number] Admin: 12/14/19 17:16 Dose: 10 mg Documented by: [id number] Admin: 12/14/19 09:10 Dose: 10 mg Documented by: [id number] Metoprolol Succinate (Metoprolol Succ 50mg Ext Rel Tab) 50 mg PO BID [facility] Stop: 01/13/20 08:59 Last Admin: 12/15/19 08:21 Dose: Not Given Documented by: [id number] Admin: 12/14/19 20:41 Dose: 50 mg Documented by: [id number] Admin: 12/14/19 09:10 Dose: 50 mg Documented by: [id number] Multivitamins/Minerals (Calcium 600mg + Vit D 400 Iu Tab) 1 tab PO [facility] Stop: 01/13/20 08:59 Last Admin: 12/15/19 08:20 Dose: 1 tab Documented by: [id number] Admin: 12/14/19 09:10 Dose: 1 tab Documented by: [id number] Ondansetron HCl (Ondansetron Inj 2 Mg/Ml 2 Ml Vial) 4 mg IV Q6H PRN PRN Reason: Nausea Stop: 01/13/20 07:48 Last Admin: 12/14/19 11:31 Dose: 4 mg Documented by: [id number] Potassium Chloride (Potassium Chloride 20 Meq Tabcr) 20 meq PO QAM [facility] Stop: 01/14/20 08:59 Last Admin: 12/15/19 08:20 Dose: 20 meq Documented by: [id number] Simvastatin (Simvastatin 10 Mg Tab) 10 mg PO PM [facility] Stop: 01/13/20 20:59 Last Admin: 12/14/19 20:40 Dose: 10 mg Documented by: [id number] Timolol Maleate (Timolol Gfs 0.5% Oph Soln 74 Drops/5 Ml Btl) 1 drops OPB [facility] Stop: 01/13/20 08:59 Last Admin: 12/15/19 08:22 Dose: 1 drops Documented by: [id number] Admin: 12/14/19 09:11 Dose: 1 drops Documented by: [id number] Vitamin D (Cholecalciferol 1,000 Units 25 Mcg Tab) 1,000 units PO [facility] Stop: 01/13/20 08:59 Last Admin: 12/15/19 08:19 Dose: 1,000 units Documented by: [id number] Admin: 12/14/19 09:10 Dose: 1,000 units Documented by: [id number] Discontinued Medications Amiodarone HCl (Amiodarone 200 Mg Tab) 200 mg PO BID [facility] Stop: 01/13/20 08:59 Last Admin: 12/14/19 09:11 Dose: 200 mg Documented by: [id number] Diltiazem HCl (Diltiazem Hcl 5 Mg/Ml 5 Ml Vial) 10 mg IV NOW STA Stop: 12/14/19 04:56 Last Admin: 12/14/19 05:06 Dose: 10 mg Documented by: [id number] Cosigned by: [id number] Potassium Chloride (Potassium Chloride 20 Meq Tabcr) 40 meq PO NOW STA Stop: 12/14/19 06:49 Last Admin: 12/14/19 07:02 Dose: 40 meq Documented by: [id number] Discharge Plan Visit Data Chief Complaint: Respiratory Problems Stated Complaint: HARD TO BREATHE ED Provider: Thalia Santos Discharge Problem: Atrial fibrillation with RVR Patient Disposition: Admitted As Inpatient Discharge Instructions Interventions: ED Discharge Assessment Last Done: 12/14/19 07:00
[2019-12-14 05:06] LABS: Basophils # (auto) 0.04 K/uL (0-0.2); Basophils % (auto) 0.4 %; Eosinophils # (auto) 0.21 K/uL (0-0.5); Eosinophils % (auto) 2.1 %; Hematocrit (blood only) 32.7 % (37-47); Hemoglobin 10.4 g/dL (12.0-16.0); Immature Granulocytes # (auto) 0.03 K/uL (0.00-0.02); Immature Granulocytes % (auto) 0.3 %; Lymphocytes # (auto) 1.43 K/uL (1.2-3.4); Lymphocytes % (auto) 14.5 %; Mean Corpuscular Hemoglobin 28.3 pg (25-34); Mean Corpuscular Hgb Conc 31.8 g/dL (32-36); Mean Corpuscular Volume 88.9 fL (80-100); Mean Platelet Volume 10.7 fL (7.4-10.4); Monocytes # (auto) 0.77 K/uL (0.11-0.59); Monocytes % (auto) 7.8 %; Neutrophils # (auto) 7.41 K/uL (1.4-6.5); Neutrophils % (auto) 74.9 %; Platelet Count 322 K/uL (130-400); RDW Coefficient of Variation 14.3 % (11.5-14.5); Red Blood Count 3.68 M/uL (4.2-5.4); White Blood Count 9.89 K/uL (4.8-10.8)
[2019-12-14 05:31] LABS: Albumin Level 3.3 gm/dl (3.4-5.0); BUN Creatinine Ratio 35.7 (10-20); Calcium 8.6 mg/dl (8.5-10.1); Est GFR (African American) 59.9; Est GFR (Non-African American) 51.7; Magnesium 2.1 mg/dl (1.8-2.4); Potassium 3.6 mmol/L (3.5-5.1)
[2019-12-14 05:42] LABS: Albumin Globulin Ratio 0.9 (0.9-2); Bilirubin,Total 0.4 mg/dl (0.2-1); Globulin 3.5 gm/dl (2.5-4.0); Thyroid Stimulating Hormone 4.55 uIu/ml (0.300-4.500); Total Protein 6.8 gm/dl (6.4-8.2)
[2019-12-14 05:56] LABS: T4 Free Thyroxine 1.29 ng/dl (0.8-1.6)
[2019-12-14] MEDS ORDERED: POTASSIUM CHLORIDE 20 MEQ TABCR PO STA (06:48)
[2019-12-14] MEDS ORDERED: METOPROLOL TARTRATE 1 MG/ML VIAL IV PRN (06:52)
--- NOTE | 2019-12-14 06:58 | History & Physical Report ---
Date of Service December 14, 2019 Assessment & Plan (1) Chest pain: Acute onset of chest pain/recurrent atrial fibrillation with RVR/cardiomyopathy/chronic HFrEF/hypertension/aortic insufficiency/tricuspid regurgitation/mitral regurgitation- The patient will be admitted to telemetry for serial cardiac enzymes, serial EKG's, and cardiac rhythm monitoring. Her potassium is borderline, probably low for her at 3.6. She reports that she has been taking 2 potassium pills in the past, but was told that her potassium was too high, and they were discontinued. We will give Klor-Con 40 mEq p.o. x1 now, and then 20 mEq p.o. every morning, following BMP closely. She reports that amiodarone was increased to 200 mg p.o. twice daily after cardioversion 2 days ago, and will be continued. Continue aspirin 81 mg daily, Eliquis 5 mg p.o. twice daily, lisinopril 10 mg p.o. twice daily and metoprolol succinate 50 mg p.o. twice daily. Have available Lopressor 5 mg IV every 4 hours as needed heart rate greater than 110 Hold furosemide 20 mg p.o. every morning for today, and resume tomorrow Consult her health and safety inspector Dr. Skip Lopez Present on Admission?: Yes (2) Atrial fibrillation with RVR: (3) Tricuspid regurgitation: (4) Aortic insufficiency: (5) Cardiomyopathy: (6) Mitral regurgitation: (7) Hypertension: (8) Hypercholesterolemia: Continue simvastatin 10 mg daily Present on Admission?: Yes (9) Chronic HFrEF (heart failure with reduced ejection fraction): History of Present Illness Chief Complaint: The patient presents to the emergency department after being woken up at 3:00 this morning by the acute onset of chest pressure and shortness of breath. She reports that she took a sublingual nitroglycerin at 4:00 with any any improvement, and then presented to the emergency department. Primary Care Provider: Pascale Guevara MD The patient is a 74-year-old female with a past medical history including atrial fibrillation, atrial fibrillation with RVR, chronic anticoagulation with Eliquis, hypertension, glaucoma, hyperlipidemia, HFrEF, tricuspid regurgitation, aortic insufficiency, mitral regurgitation. She underwent cardioversion by Dr. Skip Lopez 2 days ago, on 12/12/2019, and reports continued to feel fatigue over the next 2 days, and awoke this morning as noted above. In the emergency department, she was found to be in atrial fibrillation with RVR, and was given Cardizem 10 mg IV by the ED staff. Review of laboratory shows a potassium was borderline at 3.6, and troponin is not been ordered and will be added at this time. Chest x-ray just being performed now, and will be reviewed shortly. The patient denies any sense of palpitations. She denies any recent travels or sick exposures. Allergies Allergy/AdvReac Type Severity Reaction Status Date / Time No Known Drug Allergies Allergy Unknown . Verified 12/14/19 05:47 Home Medications Home Medications Medication Instructions Recorded Confirmed Type nitroglycerin 0.4 mg sublingual 0.4 mg SL UD PRN #25 tab 09/09/18 12/14/19 History tablet timolol maleate 0.25 % eye drops 1 drp OPB QAM ml 10/01/18 12/14/19 History Eliquis 5 mg PO BID 03/22/19 12/14/19 History Lumigan 1 drp OPB DAILY@2300 11/02/19 12/14/19 History calcium carbonate-vitamin D3 1 tab PO QAM 11/02/19 12/14/19 History [Calcium 500 + D] docusate sodium [Colace] 100 mg PO QAM 11/02/19 12/14/19 History furosemide 20 mg PO QAM #30 tab 11/05/19 12/14/19 Rx simvastatin 10 mg PO PM #30 tab 11/05/19 12/14/19 Rx cholecalciferol (vitamin D3) 25 mcg PO QAM 12/09/19 12/14/19 History [Vitamin D3] amiodarone 200 mg PO DAILY #60 tab 12/12/19 12/14/19 Rx lisinopril 10 mg PO BID17 #30 tab 12/12/19 12/14/19 Rx metoprolol succinate 50 mg PO BID #90 tab 12/12/19 12/14/19 Rx aspirin [Aspirin Low-Strength] 81 mg PO DAILY 12/14/19 12/14/19 History Past Med/Surg History Medical History (Updated 12/14/19 @ 06:46 by Kishor Rojas MD) Atrial fibrillation on eliquis CAD (coronary artery disease) CABG x2 (13 years ago) Carotid artery stenosis CHF (congestive heart failure) Chronic HFrEF (heart failure with reduced ejection fraction) Coronary artery disease of bypass graft of [place] heart with stable angina pectoris Glaucoma Hypercholesterolemia Hypertension Valvular heart disease Mild AR, Moderate posteriorly directed MR, Severe TR per 11/02/19 echo Surgical History History of bilateral tubal ligation History of cardiac cath X 2 (NO STENTS, MOST RECENT 10/2019) History of cataract surgery RT/LEFT History of colonoscopy History of coronary artery bypass graft 2 VESSELS REPAIRED/13 YEARS AGO AT [facility] Family History Mother Heart disease Hypertension Father Heart disease Hypertension Denies family history of Ovarian cancer Prostate cancer Myocardial infarction Breast cancer Colorectal cancer Social History Smoking Status: Never smoker Second Hand Exposure: No; Hx Alcohol Use: No Hx Substance Use: No Preferred Language: Italian Communication Ability: Effective Bed Operator Required: No Beliefs That Will Affect Care: None marital status: Current Living Situation: Alone Current Living Situation Comment: SON LIVES WITH PT current occupational status: retired Feels Safe at Home: Yes Dental Care, Regularly: Yes Seatbelt Use: always Review of Systems Review of Systems: The patient denies palpitations cough, lower extremity swelling, sore throat, fevers, chills, sweats, nausea, vomiting, diarrhea , constipation, abdominal pain, pelvic pain, blood in urine or stool, dysuria, urinary frequency or urgency, lightheadedness, dizziness, headache, memory loss, loss of consciousness, rash, abnormal bruising or bleeding, imbalance, focal weakness, numbness or tingling in arms or legs, generalized arthralgias or myalgias, back or neck pain, or night sweats. The review of systems is otherwise negative other than for that already noted above, and at least 10 systems have been reviewed. Physical Exam Physical Exam: The patient is awake, alert and oriented 3, well developed and well nourished, normocephalic and atraumatic, lying in bed and in no acute distress. HEENT--PERRL, EOMI, mucous membranes and oropharynx normal. Neck--supple. No JVD. No bruits. Thyroid normal, trachea midline, no adenopathy. Heart--irregularly irregular and mildly tachycardic. + murmurs. No rubs or gallops. Lungs--decreased breath sounds throughout. No respiratory distress, no accessory muscle use. Abdomen--normal bowel sounds and soft. Nontender. Nondistended. Extremities--no cyanosis or clubbing. No edema. Dermatologic--normal skin turgor, normal color, no abnormal lymph nodes, no rash. Neurologic--cranial nerves II through XII grossly intact. Rheumatologic--normal range of motion. Psychiatric--normal affect. Results & Data Results & Data ([facility]) Vital Signs (Past 12 Hours) Vital Signs Temp Pulse Pulse Resp BP BP Pulse Ox 12/14/19 06:07 115 H 20 128/90 99 12/14/19 05:42 99 12/14/19 05:41 116 H 20 125/105 H 99 12/14/19 05:09 82 20 91/65 L 95 12/14/19 04:59 117 H 20 154/108 H 96 12/14/19 04:55 96 12/14/19 04:30 97.7 F 126 H 20 154/88 H 95 Laboratory Results Laboratory Results WBC 9.89 K/uL (4.8-10.8) 12/14/19 04:50 RBC 3.68 M/uL (4.2-5.4) L 12/14/19 04:50 Hgb 10.4 g/dL (12.0-16.0) L 12/14/19 04:50 Hct 32.7 % (37-47) L 12/14/19 04:50 MCV 88.9 fL (80-100) 12/14/19 04:50 MCH 28.3 pg (25-34) 12/14/19 04:50 MCHC 31.8 g/dL (32-36) L 12/14/19 04:50 RDW Std Deviation 47.0 fL (36.4-46.3) H 12/14/19 04:50 RDW Coeff of Alyssa 14.3 % (11.5-14.5) 12/14/19 04:50 Plt Count 322 K/uL (130-400) 12/14/19 04:50 MPV 10.7 fL (7.4-10.4) H 12/14/19 04:50 Immature Gran % (Auto) 0.3 % 12/14/19 04:50 Neut % (Auto) 74.9 % 12/14/19 04:50 Lymph % (Auto) 14.5 % 12/14/19 04:50 [place] % (Auto) 7.8 % 12/14/19 04:50 Eos % (Auto) 2.1 % 12/14/19 04:50 Baso % (Auto) 0.4 % 12/14/19 04:50 Neut # (Auto) 7.41 K/uL (1.4-6.5) H 12/14/19 04:50 Lymph # (Auto) 1.43 K/uL (1.2-3.4) 12/14/19 04:50 [place] # (Auto) 0.77 K/uL (0.11-0.59) H 12/14/19 04:50 Eos # (Auto) 0.21 K/uL (0-0.5) 12/14/19 04:50 Baso # (Auto) 0.04 K/uL (0-0.2) 12/14/19 04:50 Immature Gran # (Auto) 0.03 K/uL (0.00-0.02) H 12/14/19 04:50 Sodium 141 mmol/L (136-145) 12/14/19 04:50 Potassium 3.6 mmol/L (3.5-5.1) 12/14/19 04:50 Chloride 110 mmol/L (98-107) H 12/14/19 04:50 Carbon Dioxide 26 mmol/L (21-32) 12/14/19 04:50 Anion Gap 5.0 (3-11) 12/14/19 04:50 BUN 38 mg/dl (7-18) H 12/14/19 04:50 Creatinine 1.06 mg/dl (0.6-1.2) 12/14/19 04:50 Est Cr Clr Drug Dosing 44.0 ml/min 12/14/19 04:50 Est GFR ( Amer) 59.9 12/14/19 04:50 Est GFR (Non-Af Amer) 51.7 12/14/19 04:50 BUN/Creatinine Ratio 35.7 (10-20) H 12/14/19 04:50 Glucose 113 mg/dl (70-99) H 12/14/19 04:50 Calcium 8.6 mg/dl (8.5-10.1) 12/14/19 04:50 Magnesium 2.1 mg/dl (1.8-2.4) 12/14/19 04:50 Total Bilirubin 0.4 mg/dl (0.2-1) 12/14/19 04:50 AST 31 U/L (15-37) 12/14/19 04:50 ALT 45 U/L (12-78) 12/14/19 04:50 Alkaline Phosphatase 113 U/L (45-117) 12/14/19 04:50 Total Protein 6.8 gm/dl (6.4-8.2) 12/14/19 04:50 Albumin 3.3 gm/dl (3.4-5.0) L 12/14/19 04:50 Globulin 3.5 gm/dl (2.5-4.0) 12/14/19 04:50 Albumin/Globulin Ratio 0.9 (0.9-2) 12/14/19 04:50 TSH 4.550 uIu/ml (0.300-4.500) H 12/14/19 04:50 Free T4 1.29 ng/dl (0.8-1.6) 12/14/19 04:50 Code Status & VTE Plan Code Status Full code VTE Prophylaxis Plan VTE Prophylaxis will be ordered: Yes PG Care Time/CCT Total # of Minutes Spent Total Time Spent with Patient: Total time spent is greater than 50% in coordination of care (as documented) at patient's floor/unit and/or counseling patient: Coding Level of Care Code 46379 Initial Inpt Care Lvl 3 Diagnoses Chest pain R07.9 Chest pain type: unspecified Atrial fibrillation with RVR I48.91 Tricuspid regurgitation I07.1 Aortic insufficiency I35.1 Cardiomyopathy I42.9 Mitral regurgitation I34.0 Hypertension I10 Hypercholesterolemia E78.00 Chronic HFrEF (heart failure with reduced ejection fraction) I50.22 (1) Chest pain Chest pain type: unspecified Qualified Code(s): R07.9 - Chest pain, unspecified
[2019-12-14] MEDS ORDERED: NITROGLYCERIN SL 0.4 MG/TAB TAB SL PRN (07:49)
[2019-12-14] MEDS ORDERED: ACETAMINOPHEN 325 MG TAB PO PRN (07:49)
--- NOTE | 2019-12-14 08:42 | XRay Report ---
XR chest 1V portable HISTORY: Shortness of breath. COMPARISON: Chest 12/01/2019. FINDINGS: The heart remains mildly enlarged. There is a small hiatus hernia, unchanged. Poststernotom y changes. A few bibasilar linear densities favor subsegmental atelectasis. There is mild pulmonary v ascular congestion without overt edema. This remains unchanged. IMPRESSION: 1. Cardiomegaly with mild pulmonary vascular congestion without overt edema. This remains unchanged. 2. Small hiatus hernia, unchanged. ACT 112: Negative or not required by law. Electronically signed by: Faisal Vargas M.D. 12/14/2019 8:41 AM
[2019-12-14] MEDS ORDERED: AMIODARONE 200 MG TAB PO SCH (09:00)
[2019-12-14] MEDS: CALCIUM 600MG + VIT D 400 IU TAB PO SCH (09:10)
[2019-12-14] MEDS: DOCUSATE SODIUM 100 MG CAP PO SCH (09:10)
[2019-12-14] MEDS: ASPIRIN 81 MG ECTAB PO SCH (09:10)
[2019-12-14] MEDS: METOPROLOL SUCC 50MG EXT REL TAB PO SCH ×2 (09:10→20:41)
[2019-12-14] MEDS: CHOLECALCIFEROL 1,000 UNITS 25 MCG TAB PO SCH (09:10)
[2019-12-14] MEDS: lisinopril 10 MG TAB PO SCH ×2 (09:10→17:16)
[2019-12-14] MEDS: APIXABAN 5 MG TABLET PO SCH ×2 (09:11→20:41)
[2019-12-14] MEDS: TIMOLOL GFS 0.5% OPH SOLN 74 DROPS/5 ML BTL OPB SCH (09:11)
--- NOTE | 2019-12-14 11:11 | Electrocardiogram Report ---
Test Reason : Blood Pressure : / mmHG Vent. Rate : 120 BPM Atrial Rate : 051 BPM P-R Int : 000 ms QRS Dur : 112 ms QT Int : 340 ms P-R-T Axes : 000 -46 087 degrees QTc Int : 480 ms Atrial fibrillation with rapid ventricular response Left anterior fascicular block Abnormal ECG When compared with ECG of 12-DEC-2019 07:29, Atrial fibrillation has replaced Sinus rhythm Vent. rate has increased BY 69 BPM Confirmed by Gian Sims ([id number]) on 12/14/2019 11:11:27 AM Referred By: REFERRED SELF Confirmed By:Ethan Sims
[2019-12-14] MEDS: ONDANSETRON INJ 2 MG/ML 2 ML VIAL IV PRN (11:31)
--- NOTE | 2019-12-14 12:45 | Cardiology Consultation ---
Date of Consultation December 14, 2019 Assessment & Plan (1) Atrial fibrillation with RVR: Patient has a complex history as outlined paroxysmal atrial fibrillation with poor tolerance of atrial fibrillation when present due to elevated ventricular response rate. Patient has borderline tachybradycardia syndrome and now presents shortly after recent synchronized electrical cardioversion with relapse in atrial fibrillation. This morning she is spontaneously converted but prior to doing so has developed elevated troponin secondary to demand based ischemia underlying known ischemic heart disease Plan: Increase amiodarone to 200 mg 3 times daily. Continue metoprolol succinate 50 mg twice per day Continue chronic anticoagulation with Eliquis Maintain telemetry Discussed at least initially that patient would likely benefit from pacemaker with AV junction ablation as definitive treatment. We will begin process towards this approach this admission, initial discussions this morning (2) Chronic HFrEF (heart failure with reduced ejection fraction): (3) Cardiomyopathy: (4) Demand ischemia of myocardium: History of Present Illness Reason for Consultation: Atrial fibrillation with rapid response Requesting Physician: Dr. Sagastume Attending Physician: Ren Sagastume, History of Present Illness Patient is a 74-year-old female with ongoing cardiac issues which include 1. Paroxysmal atrial fibrillation with rapid response poorly tolerated status post synchronized electrical cardioversion on 12/12/2019 2. Atherosclerotic coronary disease status post coronary bypass grafting 2006 for left main coronary artery disease, PRATT graft LAD saphenous vein graft OM1 sequentially to OM 2. Occluded saphenous vein graft by diagnostic cardiac catheterization October 2019 3. Hypertension 4. Mild left ventricular dysfunction EF 40% 5. Dyslipidemia 6. Mixed valvular disease with very mild aortic stenosis mild aortic insufficiency mild mitral insufficiency moderate tricuspid insufficiency 7. Atherosclerotic carotid disease mild 8. Chronic congestive heart failure with reduced ejection fraction Patient presents now having awakened from sleep with tachypalpitations and shortness of breath. She presented emergency room where she was found to be in atrial fibrillation with rapid response. Patient spontaneously converted to sinus rhythm later this morning after potassium supplementation and usual a.m. medications. Patient at time of examination was in atrial fibrillation but asymptomatic noting no chest pain shortness of breath or dizziness. Patient had felt well the day prior. No bleeding difficulties. No melena m edication dysuria hematuria. Allergies Allergy/AdvReac Type Severity Reaction Status Date / Time No Known Drug Allergies Allergy Unknown . Verified 12/14/19 05:47 Home Medications Home Medications Medication Instructions Recorded Confirmed Type nitroglycerin 0.4 mg sublingual 0.4 mg SL UD PRN #25 tab 09/09/18 12/14/19 History tablet timolol maleate 0.25 % eye drops 1 drp OPB QAM ml 10/01/18 12/14/19 History Eliquis 5 mg PO BID 03/22/19 12/14/19 History Lumigan 1 drp OPB DAILY@2300 11/02/19 12/14/19 History calcium carbonate-vitamin D3 1 tab PO QAM 11/02/19 12/14/19 History [Calcium 500 + D] docusate sodium [Colace] 100 mg PO QAM 11/02/19 12/14/19 History furosemide 20 mg PO QAM #30 tab 11/05/19 12/14/19 Rx simvastatin 10 mg PO PM #30 tab 11/05/19 12/14/19 Rx cholecalciferol (vitamin D3) 25 mcg PO QAM 12/09/19 12/14/19 History [Vitamin D3] amiodarone 200 mg PO DAILY #60 tab 12/12/19 12/14/19 Rx lisinopril 10 mg PO BID17 #30 tab 12/12/19 12/14/19 Rx metoprolol succinate 50 mg PO BID #90 tab 12/12/19 12/14/19 Rx aspirin [Aspirin Low-Strength] 81 mg PO DAILY 12/14/19 12/14/19 History Patient History Medical History Atrial fibrillation on eliquis CAD (coronary artery disease) CABG x2 (13 years ago) Carotid artery stenosis CHF (congestive heart failure) Chronic HFrEF (heart failure with reduced ejection fraction) Coronary artery disease of bypass graft of [place] heart with stable angina pectoris Glaucoma Hypercholesterolemia Hypertension Valvular heart disease Mild AR, Moderate posteriorly directed MR, Severe TR per 11/02/19 echo Surgical History History of bilateral tubal ligation History of cardiac cath X 2 (NO STENTS, MOST RECENT 10/2019) History of cataract surgery RT/LEFT History of colonoscopy History of coronary artery bypass graft 2 VESSELS REPAIRED/13 YEARS AGO AT [facility] Family History Mother Heart disease Hypertension Father Heart disease Hypertension Denies family history of Ovarian cancer Prostate cancer Myocardial infarction Breast cancer Colorectal cancer Social History Smoking Status: Never smoker Second Hand Exposure: No; Hx Alcohol Use: No Hx Substance Use: No Preferred Language: [place] Communication Ability: Effective Melt Room Operator Required: No Beliefs That Will Affect Care: None marital status: Current Living Situation: Family Current Living Situation Comment: SON LIVES WITH PT current occupational status: retired Feels Safe at Home: Yes Dental Care, Regularly: Yes Seatbelt Use: always Review of Systems Review of Systems: All systems reviewed & are unremarkable except as noted in HPI & below Physical Exam Constitutional: WD/WN, vitals as above Eyes: PERRL, conjunctivae normal, anicteric sclerae ENMT: external ear and nose normal, oropharynx normal Neck: trachea midline, no thyromegaly Respiratory: normal respiratory effort, lungs clear to auscultation Cardiovascular: Rate/Rhythm: + tachycardic and + irregularly irregular Heart Sounds: normal S1, normal S2 and + murmur (Grade 1/6 systolic); no gallop Palpation: normal PMI Vessels: normal carotid upstroke and radial pulses present; no JVD and no carotid bruit Extremities: no edema Gastrointestinal (Abdomen): normal bowel sounds, soft, nontender, no hepatosplenomegaly Musculoskeletal: no cyanosis or clubbing, extremities motor strength 5/5 Skin: no rashes, warm and dry Neurologic: PERRL, EOMI, accommodation nl, no face palsy, no dysarthria Psychiatric: A+Ox3, euthymic affect Results & Data ([facility]) Vital Signs (Past 12 Hours) Vital Signs Temp Pulse Pulse Resp BP BP BP 12/14/19 11:49 36.4 C L 59 L 20 122/73 12/14/19 08:30 36.3 C L 111 H 20 158/95 H 12/14/19 08:00 36.6 C 111 H 20 157/93 H 12/14/19 06:58 113 H 20 123/96 12/14/19 06:07 115 H 20 128/90 12/14/19 05:42 12/14/19 05:41 116 H 20 125/105 H 12/14/19 05:09 82 20 91/65 L 12/14/19 04:59 117 H 20 154/108 H 12/14/19 04:55 12/14/19 04:30 36.5 C 126 H 20 154/88 H Pulse Ox 12/14/19 11:49 99 12/14/19 08:30 100 12/14/19 08:00 100 12/14/19 06:58 100 12/14/19 06:07 99 12/14/19 05:42 99 12/14/19 05:41 99 12/14/19 05:09 95 12/14/19 04:59 96 12/14/19 04:55 96 12/14/19 04:30 95 Laboratory Results Laboratory Results - last 24 hr 12/14/19 12/14/19 12/14/19 04:50 04:50 06:48 WBC 9.89 RBC 3.68 L Hgb 10.4 L Hct 32.7 L MCV 88.9 MCH 28.3 MCHC 31.8 L RDW Std Deviation 47.0 H RDW Coeff of Alyssa 14.3 Plt Count 322 MPV 10.7 H Immature Gran % (Auto) 0.3 Neut % (Auto) 74.9 Lymph % (Auto) 14.5 [place] % (Auto) 7.8 Eos % (Auto) 2.1 Baso % (Auto) 0.4 Neut # (Auto) 7.41 H Lymph # (Auto) 1.43 [place] # (Auto) 0.77 H Eos # (Auto) 0.21 Baso # (Auto) 0.04 Immature Gran # (Auto) 0.03 H Sodium 141 Potassium 3.6 Chloride 110 H Carbon Dioxide 26 Anion Gap 5.0 BUN 38 H Creatinine 1.06 Est Cr Clr Drug Dosing 44.0 Est GFR ( Amer) 59.9 Est GFR (Non-Af Amer) 51.7 BUN/Creatinine Ratio 35.7 H Glucose 113 H Calcium 8.6 Magnesium 2.1 Total Bilirubin 0.4 AST 31 ALT 45 Alkaline Phosphatase 113 Troponin I 0.199 H* Total Protein 6.8 Albumin 3.3 L Globulin 3.5 Albumin/Globulin Ratio 0.9 TSH 4.550 H Free T4 1.29 12/14/19 12:12 WBC RBC Hgb Hct MCV MCH MCHC RDW Std Deviation RDW Coeff of Alyssa Plt Count MPV Immature Gran % (Auto) Neut % (Auto) Lymph % (Auto) [place] % (Auto) Eos % (Auto) Baso % (Auto) Neut # (Auto) Lymph # (Auto) [place] # (Auto) Eos # (Auto) Baso # (Auto) Immature Gran # (Auto) Sodium Potassium Chloride Carbon Dioxide Anion Gap BUN Creatinine Est Cr Clr Drug Dosing Est GFR ( Amer) Est GFR (Non-Af Amer) BUN/Creatinine Ratio Glucose Calcium Magnesium Total Bilirubin AST ALT Alkaline Phosphatase Troponin I 0.308 H* Total Protein Albumin Globulin Albumin/Globulin Ratio TSH Free T4
[2019-12-14] MEDS: AMIODARONE 200 MG TAB PO SCH ×2 (13:59→20:42)
--- NOTE | 2019-12-14 17:52 | History & Physical Bridge Note ---
Date of Service December 14, 2019 History & Physical Bridge Note I have examined the patient, reviewed the History & Physical and in the interval since the performance of the History & Physical I have noted the following changes of clinical significance: patient doing better, after admission she converted to sinus rhythm, currently rates in 50's appreciate consult from Dr. Lopez, he increased amiodarone to 200mg TID he talked with patient about setting her up for AV node ablation and pacemaker for definitive rate management patient is agreeable to this watch her today, discuss with cardiology tomorrow whether she needs to be transferred to [place] or this can be done outpatient
[2019-12-14] MEDS: SIMVASTATIN 10 MG TAB PO SCH (20:40)
[2019-12-14] MEDS: BIMATOPROST 0.01% OP SOLN 2.5 ML BTL OP SCH (22:54)
[2019-12-14] MEDS ORDERED: BIMATOPROST 0.01% OPB SCH (23:00)
[2019-12-15 04:22] LABS: Basophils # (auto) 0.04 K/uL (0-0.2); Basophils % (auto) 0.6 %; Eosinophils # (auto) 0.16 K/uL (0-0.5); Eosinophils % (auto) 2.4 %; Hematocrit (blood only) 29.2 % (37-47); Hemoglobin 9.3 g/dL (12.0-16.0); Lymphocytes # (auto) 1.54 K/uL (1.2-3.4); Lymphocytes % (auto) 23.3 %; Mean Corpuscular Hemoglobin 28.5 pg (25-34); Mean Corpuscular Hgb Conc 31.8 g/dL (32-36); Mean Corpuscular Volume 89.6 fL (80-100); Mean Platelet Volume 10.6 fL (7.4-10.4); Monocytes # (auto) 0.57 K/uL (0.11-0.59); Monocytes % (auto) 8.6 %; Neutrophils # (auto) 4.29 K/uL (1.4-6.5); Neutrophils % (auto) 65.1 %; Platelet Count 259 K/uL (130-400); RDW Coefficient of Variation 14.5 % (11.5-14.5); RDW Standard Deviation 47.2 fL (36.4-46.3); Red Blood Count 3.26 M/uL (4.2-5.4)
[2019-12-15 04:33] LABS: INR 1.1 (0.9-1.1); Partial Thromboplastin Time 27.3 Seconds (21.0-31.0); Prothrombin Time 11.5 Seconds (9.0-12.0)
[2019-12-15 04:55] LABS: Albumin Level 2.9 gm/dl (3.4-5.0); BUN Creatinine Ratio 30.4 (10-20); Calcium 8.4 mg/dl (8.5-10.1); Creatinine Clr Calc Pharmacy 49.8 ml/min; Est GFR (African American) 70.2; Est GFR (Non-African American) 60.5; Potassium 4.1 mmol/L (3.5-5.1)
[2019-12-15 05:06] LABS: Albumin Globulin Ratio 0.9 (0.9-2); Bilirubin,Total 0.5 mg/dl (0.2-1); Globulin 3.2 gm/dl (2.5-4.0); Total Protein 6.1 gm/dl (6.4-8.2); Troponin I 0.247 ng/ml (0-0.045)
[2019-12-15] MEDS: AMIODARONE 200 MG TAB PO SCH ×3 (08:18→21:23)
[2019-12-15] MEDS: CHOLECALCIFEROL 1,000 UNITS 25 MCG TAB PO SCH (08:19)
[2019-12-15] MEDS: POTASSIUM CHLORIDE 20 MEQ TABCR PO SCH (08:20)
[2019-12-15] MEDS: ASPIRIN 81 MG ECTAB PO SCH (08:20)
[2019-12-15] MEDS: FUROSEMIDE 20 MG TAB PO SCH (08:20)
[2019-12-15] MEDS: CALCIUM 600MG + VIT D 400 IU TAB PO SCH (08:20)
[2019-12-15] MEDS: lisinopril 10 MG TAB PO SCH ×2 (08:21→17:21)
[2019-12-15] MEDS: METOPROLOL SUCC 50MG EXT REL TAB PO SCH ×3 (08:21→23:00)
[2019-12-15] MEDS: APIXABAN 5 MG TABLET PO SCH ×2 (08:21→21:23)
[2019-12-15] MEDS: DOCUSATE SODIUM 100 MG CAP PO SCH (08:21)
[2019-12-15] MEDS: TIMOLOL GFS 0.5% OPH SOLN 74 DROPS/5 ML BTL OPB SCH (08:22)
--- NOTE | 2019-12-15 09:37 | Electrocardiogram Report ---
Test Reason : Blood Pressure : / mmHG Vent. Rate : 054 BPM Atrial Rate : 054 BPM P-R Int : 198 ms QRS Dur : 096 ms QT Int : 478 ms P-R-T Axes : 019 -32 004 degrees QTc Int : 453 ms Sinus bradycardia Left axis deviation Septal infarct (cited on or before 15-DEC-2019) Abnormal ECG When compared with ECG of 14-DEC-2019 04:40, Sinus rhythm has replaced Atrial fibrillation Vent. rate has decreased BY 66 BPM Left anterior fascicular block is no longer Present T wave inversion now evident in Inferior leads T wave inversion no longer evident in Lateral leads Confirmed by Stepan Dale ([id number]) on 12/15/2019 9:36:31 AM Referred By: REFERRED SELF Confirmed By:Stepan Dale
--- NOTE | 2019-12-15 11:01 | Cardiology Progress Note ---
Date of Service December 15, 2019 Assessment & Plan (1) Atrial fibrillation with RVR: Patient has a complex history as outlined paroxysmal atrial fibrillation with poor tolerance of atrial fibrillation when present due to elevated ventricular response rate. Patient has borderline tachybradycardia syndrome and now presents shortly after recent synchronized electrical cardioversion with relapse in atrial fibrillation. She spontaneously converted but prior to doing so has developed elevated troponin secondary to demand based ischemia underlying known ischemic heart disease Plan: Continue amiodarone to 200 mg 3 times daily. Continue metoprolol succinate 50 mg twice per day Patient with borderline tachybradycardia syndrome and poorly tolerated atrial fibrillation with rapid response. Remains in sinus rhythm this morning with high risk for further recurrences. Begin with pacemaker insertion tomorrow, hold Eliquis in a.m.. Pacemaker allow upward titration of medications and initial course for possible staged AV junction ablation (2) Chronic HFrEF (heart failure with reduced ejection fraction): (3) Cardiomyopathy: (4) Demand ischemia of myocardium: Admission and Anticipated Discharge Date Admission Date: December 14, 2019 Subjective Patient seen and examined, chart, medications, telemetry reviewed. Patient feels well this morning no further recurrence of atrial fibrillation overnight. No chest pains or discomfort no dizziness or lightheadedness. Review of Systems Review of Systems: All systems reviewed & are unremarkable except as noted in HPI & below Physical Exam Constitutional: WD/WN, vitals as above Eyes: PERRL, conjunctivae normal, anicteric sclerae ENMT: external ear and nose normal, oropharynx normal Neck: trachea midline, no thyromegaly Respiratory: normal respiratory effort, lungs clear to auscultation Cardiovascular: Rate/Rhythm: + tachycardic and + irregularly irregular Heart Sounds: normal S1, normal S2 and + murmur (Grade 1/6 systolic); no gallop Palpation: normal PMI Vessels: normal carotid upstroke and radial pulses present; no JVD and no carotid bruit Extremities: no edema Gastrointestinal (Abdomen): normal bowel sounds, soft, nontender, no hepatosplenomegaly Musculoskeletal: no cyanosis or clubbing, extremities motor strength 5/5 Skin: no rashes, warm and dry Neurologic: PERRL, EOMI, accommodation nl, no face palsy, no dysarthria Psychiatric: A+Ox3, euthymic affect Results & Data ([facility]) Vital Signs (Past 12 Hours) Vital Signs Temp Pulse Pulse Resp BP Pulse Ox 09/21/20 10:19 51 L 12/15/19 07:25 36.3 C L 51 L 17 134/73 97 12/15/19 05:31 57 L 12/15/19 03:00 36.4 C L 62 16 147/77 H 97 12/14/19 23:03 36.6 C 62 20 124/68 96 Laboratory Results Laboratory Results - last 24 hr 12/14/19 12/14/19 12/15/19 12:12 20:19 04:05 WBC RBC Hgb Hct MCV MCH MCHC RDW Std Deviation RDW Coeff of Alyssa Plt Count MPV Immature Gran % (Auto) Neut % (Auto) Lymph % (Auto) [place] % (Auto) Eos % (Auto) Baso % (Auto) Neut # (Auto) Lymph # (Auto) [place] # (Auto) Eos # (Auto) Baso # (Auto) Immature Gran # (Auto) PT INR APTT PTT Ratio Sodium 141 Potassium 4.1 Chloride 110 H Carbon Dioxide 28 Anion Gap 3.0 BUN 28 H Creatinine 0.93 Est Cr Clr Drug Dosing 49.8 Est GFR ( Amer) 70.2 Est GFR (Non-Af Amer) 60.5 BUN/Creatinine Ratio 30.4 H Glucose 91 Calcium 8.4 L Magnesium 2.0 Total Bilirubin 0.5 AST 24 ALT 41 Alkaline Phosphatase 67 Troponin I 0.308 H* 0.313 H* 0.247 H* Total Protein 6.1 L Albumin 2.9 L Globulin 3.2 Albumin/Globulin Ratio 0.9 12/15/19 12/15/19 04:05 04:05 WBC 6.60 RBC 3.26 L Hgb 9.3 L Hct 29.2 L MCV 89.6 MCH 28.5 MCHC 31.8 L RDW Std Deviation 47.2 H RDW Coeff of Alyssa 14.5 Plt Count 259 MPV 10.6 H Immature Gran % (Auto) 0.0 Neut % (Auto) 65.1 Lymph % (Auto) 23.3 Sumner % (Auto) 8.6 Eos % (Auto) 2.4 Baso % (Auto) 0.6 Neut # (Auto) 4.29 Lymph # (Auto) 1.54 Sumner # (Auto) 0.57 Eos # (Auto) 0.16 Baso # (Auto) 0.04 Immature Gran # (Auto) 0.00 PT 11.5 INR 1.1 APTT 27.3 PTT Ratio 1.0 Sodium Potassium Chloride Carbon Dioxide Anion Gap BUN Creatinine Est Cr Clr Drug Dosing Est GFR ( Amer) Est GFR (Non-Af Amer) BUN/Creatinine Ratio Glucose Calcium Magnesium Total Bilirubin AST ALT Alkaline Phosphatase Troponin I Total Protein Albumin Globulin Albumin/Globulin Ratio
--- NOTE | 2019-12-15 18:25 | Hospitalist Progress Note ---
Date of Service December 15, 2019 Assessment & Plan (1) Atrial fibrillation with RVR: recent elective cardioversion several days ago. unfortunately did not remain in NSR long - presented with rapid a.fib. spontaneously converted back to NSR yesterday. seen by [facility] cardiology - amiodarone increased to 200mg TID. options discussed with patient - permanent pacemaker placement advised, with future AV node ablation also discussed. NPO after MN tonight for pacer tomorrow. continue telemetry. continue metoprolol xl BID. hold eliquis in prep for pacer placement. (2) Demand ischemia of myocardium: peak troponin 0.3. no evidence of ACS. demand ischemia 2nd to rapid a.fib. (3) CAD (coronary artery disease): cont asa cont BB cont RADHA cont statin (4) Cardiomyopathy: ischemic cardiomyopathy compensated (5) Hypercholesterolemia: statin (6) Hypertension: controlled cont home meds (7) Chronic systolic CHF (congestive heart failure): compensated metoprolol xl, lasix, RADHA (8) DVT prophylaxis: hold eliquis in preparation for pacer placement tomorrow Admission and Anticipated Discharge Date Admission Date: December 14, 2019 Subjective tele overnight with NSR. patient sitting in chair at bedside - denies any complaints today. no dyspnea, orthopnea, palpitations, chest pain. feels good. Review of Systems Respiratory: no cough Cardiovascular: no chest pain Gastrointestinal: no abdominal pain, no nausea and no vomiting Physical Exam Constitutional: well developed and well nourished; no acute distress and no altered mental status ENMT: external ear and nose normal, oropharynx normal Respiratory: normal respiratory effort, lungs clear to auscultation Cardiovascular: Rate/Rhythm: regular rhythm and + bradycardic Heart Sounds: normal S1 and normal S2; no murmur Vessels: posterior tibial pulses present and dorsalis pedis pulses present; no JVD Extremities: no edema Gastrointestinal (Abdomen): normal bowel sounds, soft, nontender, no hepatosplenomegaly Psychiatric: A+Ox3, euthymic affect Results & Data Results & Data ([facility]) Vital Signs (Past 12 Hours) Vital Signs Temp Pulse Pulse Resp BP BP Pulse Ox 12/15/19 15:32 36.6 C 53 L 17 139/70 97 12/15/19 15:30 55 L 12/15/19 11:10 36.5 C 53 L 17 130/74 97 12/15/19 10:19 51 L 12/15/19 07:25 36.3 C L 51 L 17 134/73 97 Laboratory Results Laboratory Results - last 24 hr 12/14/19 12/15/19 12/15/19 20:19 04:05 04:05 WBC 6.60 RBC 3.26 L Hgb 9.3 L Hct 29.2 L MCV 89.6 MCH 28.5 MCHC 31.8 L RDW Std Deviation 47.2 H RDW Coeff of Alyssa 14.5 Plt Count 259 MPV 10.6 H Immature Gran % (Auto) 0.0 Neut % (Auto) 65.1 Lymph % (Auto) 23.3 Grant % (Auto) 8.6 Eos % (Auto) 2.4 Baso % (Auto) 0.6 Neut # (Auto) 4.29 Lymph # (Auto) 1.54 Grant # (Auto) 0.57 Eos # (Auto) 0.16 Baso # (Auto) 0.04 Immature Gran # (Auto) 0.00 PT INR APTT PTT Ratio Sodium 141 Potassium 4.1 Chloride 110 H Carbon Dioxide 28 Anion Gap 3.0 BUN 28 H Creatinine 0.93 Est Cr Clr Drug Dosing 49.8 Est GFR ( Amer) 70.2 Est GFR (Non-Af Amer) 60.5 BUN/Creatinine Ratio 30.4 H Glucose 91 Calcium 8.4 L Magnesium 2.0 Total Bilirubin 0.5 AST 24 ALT 41 Alkaline Phosphatase 67 Troponin I 0.313 H* 0.247 H* Total Protein 6.1 L Albumin 2.9 L Globulin 3.2 Albumin/Globulin Ratio 0.9 12/15/19 12/15/19 04:05 12:30 WBC RBC Hgb Hct MCV MCH MCHC RDW Std Deviation RDW Coeff of Alyssa Plt Count MPV Immature Gran % (Auto) Neut % (Auto) Lymph % (Auto) Grant % (Auto) Eos % (Auto) Baso % (Auto) Neut # (Auto) Lymph # (Auto) Grant # (Auto) Eos # (Auto) Baso # (Auto) Immature Gran # (Auto) PT 11.5 INR 1.1 APTT 27.3 PTT Ratio 1.0 Sodium Potassium Chloride Carbon Dioxide Anion Gap BUN Creatinine Est Cr Clr Drug Dosing Est GFR ( Amer) Est GFR (Non-Af Amer) BUN/Creatinine Ratio Glucose Calcium Magnesium Total Bilirubin AST ALT Alkaline Phosphatase Troponin I 0.218 H* Total Protein Albumin Globulin Albumin/Globulin Ratio PG Care Time/CCT Total # of Minutes Spent Total Time Spent with Patient: Total time spent is greater than 50% in coordination of care (as documented) at patient's floor/unit and/or counseling patient: Coding Level of Care Code 64221 Subseq Hosp Care Lvl 2 Diagnoses Atrial fibrillation with RVR I48.91 Demand ischemia of myocardium I24.8 CAD (coronary artery disease) I25.10 Cardiomyopathy I42.9 Hypercholesterolemia E78.00 Hypertension I10 Chronic systolic CHF (congestive heart failure) I50.22 DVT prophylaxis Z29.9
[2019-12-15] MEDS: SIMVASTATIN 10 MG TAB PO SCH (21:24)
[2019-12-15] MEDS: BIMATOPROST 0.01% OP SOLN 2.5 ML BTL OP SCH (21:25)
[2019-12-16 06:43] LABS: Basophils # (auto) 0.05 K/uL (0-0.2); Basophils % (auto) 0.8 %; Eosinophils # (auto) 0.21 K/uL (0-0.5); Eosinophils % (auto) 3.2 %; Hematocrit (blood only) 32.7 % (37-47); Hemoglobin 10.6 g/dL (12.0-16.0); Immature Granulocytes # (auto) 0.01 K/uL (0.00-0.02); Immature Granulocytes % (auto) 0.2 %; Lymphocytes # (auto) 1.42 K/uL (1.2-3.4); Lymphocytes % (auto) 21.9 %; Mean Corpuscular Hemoglobin 28.8 pg (25-34); Mean Corpuscular Hgb Conc 32.4 g/dL (32-36); Mean Corpuscular Volume 88.9 fL (80-100); Mean Platelet Volume 10.2 fL (7.4-10.4); Monocytes # (auto) 0.74 K/uL (0.11-0.59); Monocytes % (auto) 11.4 %; Neutrophils # (auto) 4.06 K/uL (1.4-6.5); Neutrophils % (auto) 62.5 %; Platelet Count 288 K/uL (130-400); RDW Coefficient of Variation 14.3 % (11.5-14.5); RDW Standard Deviation 46.7 fL (36.4-46.3); Red Blood Count 3.68 M/uL (4.2-5.4); White Blood Count 6.49 K/uL (4.8-10.8)
[2019-12-16 06:55] LABS: INR 1.1 (0.9-1.1); Partial Thromboplastin Time 28.3 Seconds (21.0-31.0); Prothrombin Time 11.7 Seconds (9.0-12.0)
[2019-12-16 07:14] LABS: BUN Creatinine Ratio 23.6 (10-20); Calcium 8.8 mg/dl (8.5-10.1); Creatinine Clr Calc Pharmacy 44.4 ml/min; Est GFR (African American) 67.5; Est GFR (Non-African American) 58.3; Potassium 4.1 mmol/L (3.5-5.1)
[2019-12-16 07:17] LABS: Albumin Globulin Ratio 0.9 (0.9-2); Bilirubin,Total 0.7 mg/dl (0.2-1); Globulin 3.4 gm/dl (2.5-4.0); Total Protein 6.4 gm/dl (6.4-8.2)
[2019-12-16] MEDS: METOPROLOL SUCC 50MG EXT REL TAB PO SCH ×2 (08:28→20:00)
[2019-12-16] MEDS: DOCUSATE SODIUM 100 MG CAP PO SCH (08:29)
[2019-12-16] MEDS: AMIODARONE 200 MG TAB PO SCH ×3 (08:29→19:59)
[2019-12-16] MEDS: CALCIUM 600MG + VIT D 400 IU TAB PO SCH (08:29)
[2019-12-16] MEDS: FUROSEMIDE 20 MG TAB PO SCH (08:29)
[2019-12-16] MEDS: POTASSIUM CHLORIDE 20 MEQ TABCR PO SCH (08:30)
[2019-12-16] MEDS: lisinopril 10 MG TAB PO SCH ×2 (08:30→16:22)
[2019-12-16] MEDS: CHOLECALCIFEROL 1,000 UNITS 25 MCG TAB PO SCH (08:30)
[2019-12-16] MEDS: ASPIRIN 81 MG ECTAB PO SCH (08:30)
[2019-12-16] MEDS: TIMOLOL GFS 0.5% OPH SOLN 74 DROPS/5 ML BTL OPB SCH (08:31)
[2019-12-16] MEDS ORDERED: MIDAZOLAM HCL 5 MG/ML 1 ML VIAL ONE (11:15)
[2019-12-16] MEDS ORDERED: LIDOCAINE HCL 1% 20 ML VIAL ONE (11:15)
[2019-12-16] MEDS ORDERED: fentaNYL citrate 100 MCG/2 ML VIAL ONE (11:15)
[2019-12-16] MEDS ORDERED: BUPIVACAINE 0.25% 30 ML VIAL ONE (11:15)
[2019-12-16] MEDS ORDERED: BACITRACIN INJ 50,000 UNIT VIAL ONE (11:16)
--- NOTE | 2019-12-16 11:31 | History & Physical Bridge Note ---
Date of Service December 16, 2019 History & Physical Bridge Note I have examined the patient, reviewed the History & Physical and in the interval since the performance of the History & Physical I have noted the following changes of clinical significance: pt with TBS for dual chamber ppm
--- NOTE | 2019-12-16 11:32 | Pre Anesthesia Assessment ---
Date of Service December 16, 2019 Pre Sedation Assessment Vital Signs Temp Pulse Pulse Pulse Resp BP BP 12/16/19 08:00 108 H 12/16/19 07:26 36.8 C 104 H 18 121/71 12/16/19 03:47 36.4 C L 100 H 16 111/73 12/15/19 23:03 36.4 C L 116 H 16 124/77 12/15/19 19:06 36.9 C 56 L 16 158/71 H 12/15/19 15:32 36.6 C 53 L 17 139/70 12/15/19 15:30 55 L Pulse Ox 12/16/19 08:00 12/16/19 07:26 95 12/16/19 03:47 96 12/15/19 23:03 95 12/15/19 19:06 96 12/15/19 15:32 97 12/15/19 15:30 Cardiovascular + tachycardic and + irregularly irregular Respiratory normal respiratory effort, lungs clear to auscultation Pre-Sedation Airway Assessment Smoking Status: Never smoker Hx Sleep Apnea: No Hx Difficult Intubation: No Thyromental Distance: < 3.5 Finger Breadths Mallampati Class: II ASA: ASA3 NPO Status Date of Last Intake of Fluids: 12/15/19 Date of Last Intake of Solid Food: 12/15/19 Procedure Planning Contraindications for Sedation: none Current Medications Reviewed: Yes Notes The planned sedation has been discussed with the patient. Informed Consent was obtained. I have identified the patient, determined the appropriateness of sedation and have assessed the patient immediately prior to the procedure. All medicine(s) and interventions are by my order.
--- NOTE | 2019-12-16 11:37 | Cardiology Consultation ---
Date of Consultation December 16, 2019 Assessment & Plan (1) Atrial fibrillation with RVR: s/p DCCV Continue eliquis Would continue PO amiodarone and since she is back in AF today start IV amiodarone as well Continue metoprolol (2) Chronic HFrEF (heart failure with reduced ejection fraction): (3) Cardiomyopathy: (4) Demand ischemia of myocardium: (5) Tachy-amber syndrome: History of Present Illness Reason for Consultation: TBS Requesting Physician: Dr. Lopez Attending Physician: Jose Fatima History of Present Illness Pt with symptomatic pAF; underwent DCCV on 12/11 to SB her metoprolol was decreased; she ended up back in AF the following day. Then converted back to SB. EP is consulted for consideration of pacemaker. She has palpitations and chest pains with the episodes of pAF Allergies Allergy/AdvReac Type Severity Reaction Status Date / Time No Known Drug Allergies Allergy Unknown . Verified 12/14/19 05:47 Home Medications Home Medications Medication Instructions Recorded Confirmed Type nitroglycerin 0.4 mg sublingual 0.4 mg SL UD PRN #25 tab 09/09/18 12/14/19 History tablet timolol maleate 0.25 % eye drops 1 drp OPB QAM ml 10/01/18 12/14/19 History Eliquis 5 mg PO BID 03/22/19 12/14/19 History Lumigan 1 drp OPB DAILY@2300 11/02/19 12/14/19 History calcium carbonate-vitamin D3 1 tab PO QAM 11/02/19 12/14/19 History [Calcium 500 + D] docusate sodium [Colace] 100 mg PO QAM 11/02/19 12/14/19 History furosemide 20 mg PO QAM #30 tab 11/05/19 12/14/19 Rx simvastatin 10 mg PO PM #30 tab 11/05/19 12/14/19 Rx cholecalciferol (vitamin D3) 25 mcg PO QAM 12/09/19 12/14/19 History [Vitamin D3] amiodarone 200 mg PO DAILY #60 tab 12/12/19 12/14/19 Rx lisinopril 10 mg PO BID17 #30 tab 12/12/19 12/14/19 Rx metoprolol succinate 50 mg PO BID #90 tab 12/12/19 12/14/19 Rx aspirin [Aspirin Low-Strength] 81 mg PO DAILY 12/14/19 12/14/19 History Patient History Medical History Atrial fibrillation on eliquis CAD (coronary artery disease) CABG x2 (13 years ago) Carotid artery stenosis CHF (congestive heart failure) Chronic HFrEF (heart failure with reduced ejection fraction) Coronary artery disease of bypass graft of [place] heart with stable angina pectoris Glaucoma Hypercholesterolemia Hypertension Valvular heart disease Mild AR, Moderate posteriorly directed MR, Severe TR per 11/02/19 echo Surgical History History of bilateral tubal ligation History of cardiac cath X 2 (NO STENTS, MOST RECENT 10/2019) History of cataract surgery RT/LEFT History of colonoscopy History of coronary artery bypass graft 2 VESSELS REPAIRED/[address] AGO [address] 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 Beliefs That Will Affect Care: None marital status: Current Living Situation: Family Current Living Situation Comment: SON LIVES WITH PT current occupational status: retired Feels Safe at Home: Yes Dental Care, Regularly: Yes Seatbelt Use: always Assistive Devices: None Review of Systems Review of Systems: All systems reviewed & are unremarkable except as noted in HPI & below Physical Exam ENMT: Mallampati Class: II Respiratory: normal respiratory effort, lungs clear to auscultation Cardiovascular: Rate/Rhythm: + tachycardic and + irregularly irregular Results & Data ([facility]) Vital Signs (Past 12 Hours) Vital Signs Temp Pulse Pulse Resp BP Pulse Ox 12/16/19 08:00 108 H 12/16/19 07:26 36.8 C 104 H 18 121/71 95 12/16/19 03:47 36.4 C L 100 H 16 111/73 96 EC12/16/2019:AF 12/15/2019: SB
[2019-12-16] MEDS ORDERED: AMIODARONE 150MG / 100ML D5W IV ONE (11:54)
--- NOTE | 2019-12-16 11:57 | Cardiology Progress Note ---
Date of Service December 16, 2019 Assessment & Plan (1) Paroxysmal atrial fibrillation: Patient with paroxysmal atrial fibrillation and tachybradycardia syndrome. Anticipating pacemaker later today. Addendum patient lapsed into atrial fibrillation this morning after maintaining sinus x2 days. As above pacemaker increase medical therapy and possible AV junction ablation in the future due to poor tolerance of atrial arrhythmias and underlying ischemic heart disease. Echocardiogram yesterday demonstrated improved LV systolic function Admission and Anticipated Discharge Date Admission Date: December 14, 2019 Subjective Patient seen and examined chart and telemetry reviewed. Physical Exam Constitutional: WD/WN, vitals as above Eyes: PERRL, conjunctivae normal, anicteric sclerae ENMT: external ear and nose normal, oropharynx normal Neck: trachea midline, no thyromegaly Respiratory: normal respiratory effort, lungs clear to auscultation Cardiovascular: Rate/Rhythm: regular rate and regular rhythm Heart Sounds: + murmur (Grade 2/6 systolic) Gastrointestinal (Abdomen): normal bowel sounds, soft, nontender, no hepatosplenomegaly Musculoskeletal: no cyanosis or clubbing, extremities motor strength 5/5 Results & Data ([facility]) Vital Signs (Past 12 Hours) Vital Signs Temp Pulse Pulse Resp BP Pulse Ox 12/16/19 08:00 108 H 12/16/19 07:26 36.8 C 104 H 18 121/71 95 12/16/19 03:47 36.4 C L 100 H 16 111/73 96 Laboratory Results Laboratory Results - last 24 hr 12/15/19 12/16/19 12/16/19 12:30 06:32 06:32 WBC 6.49 RBC 3.68 L Hgb 10.6 L Hct 32.7 L MCV 88.9 MCH 28.8 MCHC 32.4 RDW Std Deviation 46.7 H RDW Coeff of Alyssa 14.3 Plt Count 288 MPV 10.2 Immature Gran % (Auto) 0.2 Neut % (Auto) 62.5 Lymph % (Auto) 21.9 Cherry % (Auto) 11.4 Eos % (Auto) 3.2 Baso % (Auto) 0.8 Neut # (Auto) 4.06 Lymph # (Auto) 1.42 Cherry # (Auto) 0.74 H Eos # (Auto) 0.21 Baso # (Auto) 0.05 Immature Gran # (Auto) 0.01 PT 11.7 INR 1.1 APTT 28.3 PTT Ratio 1.0 Sodium Potassium Chloride Carbon Dioxide Anion Gap BUN Creatinine Est Cr Clr Drug Dosing Est GFR ( Amer) Est GFR (Non-Af Amer) BUN/Creatinine Ratio Glucose Calcium Magnesium Total Bilirubin AST ALT Alkaline Phosphatase Troponin I 0.218 H* Total Protein Albumin Globulin Albumin/Globulin Ratio 12/16/19 06:32 WBC RBC Hgb Hct MCV MCH MCHC RDW Std Deviation RDW Coeff of Alyssa Plt Count MPV Immature Gran % (Auto) Neut % (Auto) Lymph % (Auto) Cherry % (Auto) Eos % (Auto) Baso % (Auto) Neut # (Auto) Lymph # (Auto) Cherry # (Auto) Eos # (Auto) Baso # (Auto) Immature Gran # (Auto) PT INR APTT PTT Ratio Sodium 141 Potassium 4.1 Chloride 109 H Carbon Dioxide 28 Anion Gap 4.0 BUN 23 H Creatinine 0.96 Est Cr Clr Drug Dosing 44.4 Est GFR ( Amer) 67.5 Est GFR (Non-Af Amer) 58.3 BUN/Creatinine Ratio 23.6 H Glucose 92 Calcium 8.8 Magnesium 2.0 Total Bilirubin 0.7 AST 19 ALT 34 Alkaline Phosphatase 72 Troponin I Total Protein 6.4 Albumin 3.0 L Globulin 3.4 Albumin/Globulin Ratio 0.9
[2019-12-16] MEDS ORDERED: AMIODARONE 360MG / 200ML D5W IV ONE (12:03)
--- NOTE | 2019-12-16 13:08 | Post Anesthesia Assessment ---
Date of Service December 16, 2019 Post Sedation Assessment Vital Signs Temp Pulse Pulse Pulse Resp BP BP 12/16/19 08:00 108 H 12/16/19 07:26 36.8 C 104 H 18 121/71 12/16/19 03:47 36.4 C L 100 H 16 111/73 12/15/19 23:03 36.4 C L 116 H 16 124/77 12/15/19 19:06 36.9 C 56 L 16 158/71 H 12/15/19 15:32 36.6 C 53 L 17 139/70 12/15/19 15:30 55 L Pulse Ox 12/16/19 08:00 12/16/19 07:26 95 12/16/19 03:47 96 12/15/19 23:03 95 12/15/19 19:06 96 12/15/19 15:32 97 12/15/19 15:30 Recovery Score Activity: Moves 4 extremities Respiration: Deep Breath/Cough Circulation: +/-20% PreAnes Value Consciousness: Fully Awake Oxygen Saturation: > 92% On Room Air Discharge Sedation Level of Care: Fast Track Phase II Post Sedation Plan On clinical assessment, the patient appears to have tolerated the sedation without complications. Patient is recovering as anticipated. Patient will continue to be monitored by nursing and may be discharged when sedation discharge criteria are met per below protocol. Upon Completions of procedure up to 15 minutes continue every 5 minute vital signs and the P.A.R. score; then discharge to a Phase I or Fast Track to Phase II per the following guidelines: * Discharge Patient to appropriate Phase II area if PAR is 8 or greater or return to pre- procedure baseline. The post - procedure orders will be as directed. * If PAR score is less than 8 or not return to pre-procedure baseline then patient will follow Phase I monitoring till PAR is reached for Phase II. The Phase I may be done in procedure room or may call to secure a Phase I area. * If naloxone or flumazenil are used for reversal, hold in Phase I for continued monitoring from when last reversal dose was given for a minimum of 60 minutes or longer pending the nurse and/or physician discretion of patient condition before discharge to Phase II. Please call the Sedation Physician to re-evaluate and complete post-note for discharge to Phase II area. Do NOT discharge from procedure sedation or Phase 1 until post- sedation evaluation note is complete by procedure /sedation MD Sedation Discharge Instructions to be given to the patient at discharge to home.
[2019-12-16] MEDS ORDERED: oxyCODONE/ACETAMINOPHEN 5mg/325mg TAB PO PRN (13:09)
[2019-12-16] MEDS ORDERED: 0.2 MICRON FILTER SET 1 EA IV ONE (13:09)
--- NOTE | 2019-12-16 13:09 | Operative Report ---
Post Operative Report Pre & Post Diagnosis tbs Operation Date: 12/16/19 11:30 <No data on this case meets the specified criteria> I identified the patient and participated in the time-out.: Yes Procedure Operation Date: 12/16/19 11:30 Actual Procedures p Pacer with A/V Leads (Dual) - Nallely Wolff DO Intracardiac EGM mapping of his bundle peripheral venogram Surgeon Nallely Wolff, DO Embedded Hardware Engineer none Estimated Blood Loss 20 Findings Consistent with Post-Op Diagnosis Specimens none Description of Procedure see official report I attest to the content of the Intraoperative Record and any orders documented therein. Any exceptions are noted below.
[2019-12-16] MEDS ORDERED: Nursing to Pharmacy Communication SCH (13:15)
[2019-12-16] MEDS ORDERED: APIXABAN 5 MG TABLET PO ONE (13:30)
[2019-12-16] MEDS: ONDANSETRON INJ 2 MG/ML 2 ML VIAL IV PRN (17:40)
[2019-12-16] MEDS: AMIODARONE / D5W 360 MG/200 ML BAG IV SCH (18:25)
[2019-12-16] MEDS: SIMVASTATIN 10 MG TAB PO SCH (20:00)
[2019-12-16] MEDS: APIXABAN 5 MG TABLET PO SCH (20:01)
--- NOTE | 2019-12-16 22:01 | Hospitalist Progress Note ---
Date of Service December 16, 2019 Assessment & Plan (1) S/P placement of cardiac pacemaker: by Dr Wolff today for tachy-amber syndrome, [id number] a.fib. defer to cardiology resumption of eliquis. will need post-pacer cxr to r/o pneumothorax. 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 (3) Atrial fibrillation with RVR: recent elective cardioversion several days ago. unfortunately did not remain in NSR long - presented with rapid a.fib at time of admission. spontaneously converted back to NSR, then had PAF again overnight. amiodarone increased to 200mg TID at time of admission. now on amiodarone infusion as well. s/p permanent pacemaker placement today. future AV node ablation also discussed with patient but deferred for now. cont toprol xl BID. resume eliquis when ok with cardiology. (4) Severe protein-calorie malnutrition: patient reporting 20 pounds of weight loss of late, but her weight this admission is similar to 1 year ago. has had grieving/depression in setting of her 's recent . will need close f/u with PCP for this. encouraged counseling as well. (5) Demand ischemia of myocardium: peak troponin 0.3. no evidence of ACS. demand ischemia 2nd to rapid a.fib. (6) CAD (coronary artery disease): cont asa cont BB cont RADHA cont statin (7) Cardiomyopathy: ischemic cardiomyopathy compensated (8) Hypercholesterolemia: statin (9) Hypertension: controlled cont home meds (10) Chronic systolic CHF (congestive heart failure): compensated metoprolol xl, lasix, RADHA (11) DVT prophylaxis: resume eliquis when ok with cardiology PT eval tomorrow to ensure safe for home hopefully home tomorrow daughter updated at bedside Admission and Anticipated Discharge Date Admission Date: December 14, 2019 Subjective saw patient post-pacer placement c/o pacer site pain but no dyspnea tele overnight - had rapid a.fib once again patient's daughter was at bedside she states her mother has lost 20 pounds of weight the last few months in the setting of Ms Reveles's 's patient admits to anxiety/depression patient states "I just don't have an appetite" Review of Systems Constitutional: no fever Respiratory: no cough Cardiovascular: no chest pain, no orthopnea and no paroxysmal nocturnal dyspnea Gastrointestinal: no abdominal pain Physical Exam Constitutional: well developed and well nourished; no acute distress and no altered mental status ENMT: external ear and nose normal, oropharynx normal Respiratory: normal respiratory effort, lungs clear to auscultation Cardiovascular: Rate/Rhythm: regular rate and regular rhythm Heart Sounds: normal S1 and normal S2; no murmur Vessels: posterior tibial pulses present and dorsalis pedis pulses present; no JVD Extremities: no edema Chest (Breasts): Additional Comments: pacer site - left upper chest - dressings intact Gastrointestinal (Abdomen): normal bowel sounds, soft, nontender, no hepatosplenomegaly Psychiatric: A+Ox3, euthymic affect Results & Data Results & Data ([facility]) Vital Signs (Past 12 Hours) Vital Signs Temp Pulse Pulse Pulse Resp BP BP 12/16/19 21:26 60 12/16/19 19:14 36.5 C 60 17 108/69 12/16/19 17:28 36.4 C L 58 L 16 132/79 12/16/19 17:24 60 12/16/19 15:54 60 16 117/75 12/16/19 15:18 36.7 C 61 16 96/59 L 12/16/19 14:54 62 92/56 L 12/16/19 14:24 60 92/57 L 12/16/19 13:59 74 12/16/19 13:54 60 120/63 12/16/19 13:38 36.4 C L 61 18 116/68 12/16/19 13:24 61 17 111/65 12/16/19 13:10 60 17 132/66 Pulse Ox 12/16/19 21:26 12/16/19 19:14 96 12/16/19 17:28 96 12/16/19 17:24 12/16/19 15:54 96 12/16/19 15:18 97 12/16/19 14:54 12/16/19 14:24 12/16/19 13:59 12/16/19 13:54 96 12/16/19 13:38 96 12/16/19 13:24 95 12/16/19 13:10 94 Laboratory Results Laboratory Results - last 24 hr 12/16/19 12/16/19 12/16/19 06:32 06:32 06:32 WBC 6.49 RBC 3.68 L Hgb 10.6 L Hct 32.7 L MCV 88.9 MCH 28.8 MCHC 32.4 RDW Std Deviation 46.7 H RDW Coeff of Alyssa 14.3 Plt Count 288 MPV 10.2 Immature Gran % (Auto) 0.2 Neut % (Auto) 62.5 Lymph % (Auto) 21.9 [place] % (Auto) 11.4 Eos % (Auto) 3.2 Baso % (Auto) 0.8 Neut # (Auto) 4.06 Lymph # (Auto) 1.42 [place] # (Auto) 0.74 H Eos # (Auto) 0.21 Baso # (Auto) 0.05 Immature Gran # (Auto) 0.01 PT 11.7 INR 1.1 APTT 28.3 PTT Ratio 1.0 Sodium 141 Potassium 4.1 Chloride 109 H Carbon Dioxide 28 Anion Gap 4.0 BUN 23 H Creatinine 0.96 Est Cr Clr Drug Dosing 44.4 Est GFR ( Amer) 67.5 Est GFR (Non-Af Amer) 58.3 BUN/Creatinine Ratio 23.6 H Glucose 92 Calcium 8.8 Magnesium 2.0 Total Bilirubin 0.7 AST 19 ALT 34 Alkaline Phosphatase 72 Total Protein 6.4 Albumin 3.0 L Globulin 3.4 Albumin/Globulin Ratio 0.9 PG Care Time/CCT Total # of Minutes Spent Total Time Spent with Patient: Total time spent is greater than 50% in coordination of care (as documented) at patient's floor/unit and/or counseling patient: Coding Level of Care Code 46274 Subseq Hosp Care Lvl 2 Diagnoses S/P placement of cardiac pacemaker Z95.0 Tachy-amber syndrome I49.5 Atrial fibrillation with RVR I48.91 Severe protein-calorie malnutrition E43 Demand ischemia of myocardium I24.8 CAD (coronary artery disease) I25.10 Cardiomyopathy I42.9 Hypercholesterolemia E78.00 Hypertension I10 Chronic systolic CHF (congestive heart failure) I50.22 DVT prophylaxis Z29.9
[2019-12-16] MEDS: BIMATOPROST 0.01% OP SOLN 2.5 ML BTL OP SCH (22:28)
[2019-12-17] MEDS: AMIODARONE / D5W 360 MG/200 ML BAG IV SCH (05:55)
[2019-12-17] MEDS: ONDANSETRON INJ 2 MG/ML 2 ML VIAL IV PRN (05:56)
[2019-12-17 07:40] LABS: Basophils # (auto) 0.05 K/uL (0-0.2); Basophils % (auto) 0.7 %; Eosinophils % (auto) 2.8 %; Hemoglobin 10.8 g/dL (12.0-16.0); Immature Granulocytes # (auto) 0.01 K/uL (0.00-0.02); Immature Granulocytes % (auto) 0.1 %; Lymphocytes # (auto) 1.06 K/uL (1.2-3.4); Lymphocytes % (auto) 14.8 %; Mean Corpuscular Hemoglobin 28.6 pg (25-34); Mean Corpuscular Hgb Conc 32.7 g/dL (32-36); Mean Corpuscular Volume 87.5 fL (80-100); Monocytes # (auto) 0.72 K/uL (0.11-0.59); Monocytes % (auto) 10.1 %; Neutrophils # (auto) 5.12 K/uL (1.4-6.5); Neutrophils % (auto) 71.5 %; Platelet Count 289 K/uL (130-400); RDW Coefficient of Variation 14.5 % (11.5-14.5); RDW Standard Deviation 45.9 fL (36.4-46.3); Red Blood Count 3.77 M/uL (4.2-5.4); White Blood Count 7.16 K/uL (4.8-10.8)
[2019-12-17 08:04] LABS: BUN Creatinine Ratio 22.3 (10-20); Calcium 9.1 mg/dl (8.5-10.1); Creatinine Clr Calc Pharmacy 43.1 ml/min; Est GFR (African American) 65.1; Est GFR (Non-African American) 56.1; Potassium 3.7 mmol/L (3.5-5.1)
[2019-12-17] MEDS ORDERED: PROMETHAZINE HCL 12.5 MG in SODIUM CHLORIDE 0.9% 50 ML IV PRN (08:04)
[2019-12-17] MEDS: FUROSEMIDE 20 MG TAB PO SCH (09:19)
[2019-12-17] MEDS: APIXABAN 5 MG TABLET PO SCH ×2 (09:19→20:55)
[2019-12-17] MEDS: ASPIRIN 81 MG ECTAB PO SCH (09:19)
[2019-12-17] MEDS: METOPROLOL SUCC 50MG EXT REL TAB PO SCH ×2 (09:19→20:55)
[2019-12-17] MEDS: CALCIUM 600MG + VIT D 400 IU TAB PO SCH (09:19)
[2019-12-17] MEDS: CHOLECALCIFEROL 1,000 UNITS 25 MCG TAB PO SCH (09:19)
[2019-12-17] MEDS: DOCUSATE SODIUM 100 MG CAP PO SCH (09:19)
[2019-12-17] MEDS: AMIODARONE 200 MG TAB PO SCH ×2 (09:20→14:44)
[2019-12-17] MEDS: POTASSIUM CHLORIDE 20 MEQ TABCR PO SCH (09:20)
[2019-12-17] MEDS: lisinopril 10 MG TAB PO SCH (09:20)
[2019-12-17] MEDS: TIMOLOL GFS 0.5% OPH SOLN 74 DROPS/5 ML BTL OPB SCH (09:20)
--- NOTE | 2019-12-17 09:27 | XRay Report ---
XR chest 2V PA/lateral CLINICAL HISTORY: post left bundle ppm PACEMAKER PLACEMENT. COMPARISON STUDY: 12/14/2019 FINDINGS: The heart is mildly enlarged. There are postsurgical changes of midline sternotomy. There i s a left subclavian dual-chamber central venous pacemaker. There is a hiatal hernia. There is no fail ure. There is no focal pulmonary consolidation. There are small bilateral pleural effusions. No pneum othorax is visualized.[ IMPRESSION: 1. Cardiomegaly and small bilateral pleural effusions 2. Hiatal hernia 2. No evidence of pneumothorax status post left subclavian pacemaker placement ACT 112: Negative or not required by law. Electronically signed by: Buck Briones M.D. 12/17/2019 9:26 AM
[2019-12-17] MEDS ORDERED: SODIUM CHLORIDE 0.9% 1000ML 250 ML IV ONE ×2 (11:49→13:45)
[2019-12-17] MEDS ORDERED: HYDROCODONE/ACETAMOPHEN 5/325MG TAB PO PRN (13:46)
--- NOTE | 2019-12-17 14:01 | Electrocardiogram Report ---
Test Reason : Blood Pressure : / mmHG Vent. Rate : 115 BPM Atrial Rate : 000 BPM P-R Int : 000 ms QRS Dur : 092 ms QT Int : 354 ms P-R-T Axes : 000 -55 073 degrees QTc Int : 489 ms Atrial fibrillation with rapid ventricular response Left axis deviation Septal infarct (cited on or before 15-DEC-2019) Abnormal ECG When compared with ECG of 15-DEC-2019 06:43, Atrial fibrillation has replaced Sinus rhythm Vent. rate has increased BY 61 BPM T wave inversion no longer evident in Inferior leads Nonspecific T wave abnormality now evident in Lateral leads Confirmed by Stepan Dale ([id number]) on 12/17/2019 2:01:42 PM Referred By: REFERRED SELF Confirmed By:Stepan Dale
--- NOTE | 2019-12-17 14:24 | Electrocardiogram Report ---
Test Reason : Blood Pressure : / mmHG Vent. Rate : 060 BPM Atrial Rate : 060 BPM P-R Int : 268 ms QRS Dur : 108 ms QT Int : 458 ms P-R-T Axes : 000 -54 024 degrees QTc Int : 458 ms Atrial-paced rhythm with prolonged AV conduction Left anterior fascicular block Minimal voltage criteria for LVH, may be normal variant ( Federico product ) Cannot rule out Anterior infarct (cited on or before 15-DEC-2019) Abnormal ECG When compared with ECG of 16-DEC-2019 06:37, (unconfirmed) Atrial-paced rhythm has replaced Atrial fibrillation Confirmed by Stepan Dale ([id number]) on 12/17/2019 2:24:26 PM Referred By: REFERRED SELF Confirmed By:Stepan Dale
--- NOTE | 2019-12-17 14:28 | Cardiology Progress Note ---
Date of Service December 17, 2019 Assessment & Plan (1) Paroxysmal atrial fibrillation: Patient with paroxysmal atrial fibrillation and tachybradycardia syndrome with poor tolerance of atrial fibrillation with rapid response when occurring. Patient underwent pacemaker insertion yesterday with normal device function No further recurrence of atrial fibrillation after IV amiodarone load. Nauseated today likely from pain medications and amiodarone. Observe additional 24 hours. No further amiodarone orally today Reduce lisinopril to 10 mg daily given labile blood pressures Ultimately patient will require AV junction ablation with patient at high likelihood of recurrence of atrial fibrillation despite antiarrhythmic therapy given underlying biatrial enlargement mitral tricuspid insufficiency. (2) CAD (coronary artery disease): Status post carotid bypass grafting 2006 for left main disease, PRATT graft LAD and known now occluded saphenous vein graft sequentially to OM1 and OM 2 Circumflex distribution still with ischemic risk but overall LV function has improved with medical therapies. Revascularization would require high risk intervention Admission and Anticipated Discharge Date Admission Date: December 14, 2019 Subjective Patient seen and examined, chart, medications, telemetry reviewed. No chest pain or discomfort but nauseated today. No fevers or chills. No worsening shortness of breath. Pacemaker site healing No further atrial fibrillation post procedure/amiodarone load and subsequent car dioversion Physical Exam Constitutional: WD/WN, vitals as above Disgruntled Eyes: PERRL, conjunctivae normal, anicteric sclerae ENMT: external ear and nose normal, oropharynx normal Neck: trachea midline, no thyromegaly Respiratory: normal respiratory effort, lungs clear to auscultation Cardiovascular: Rate/Rhythm: regular rate, regular rhythm, + tachycardic and + irregularly irregular Heart Sounds: normal S1, normal S2 and + murmur (Grade 2/6 systolic); no gallop Palpation: normal PMI Vessels: normal carotid upstroke and radial pulses present; no JVD and no carotid bruit Extremities: no edema Chest (Breasts): Chest: + pacemaker (Site bandaged without hematoma) Gastrointestinal (Abdomen): normal bowel sounds, soft, nontender, no hepatosplenomegaly Musculoskeletal: no cyanosis or clubbing, extremities motor strength 5/5 Skin: no rashes, warm and dry Neurologic: PERRL, EOMI, accommodation nl, no face palsy, no dysarthria Psychiatric: A+Ox3, euthymic affect Results & Data ([place]) Vital Signs (Past 12 Hours) Vital Signs Temp Pulse Resp BP BP Pulse Ox 12/17/19 12:47 95 12/17/19 12:11 93/59 L 12/17/19 12:00 60 12/17/19 11:16 36.4 C L 60 18 87/49 L 95 12/17/19 08:00 60 12/17/19 07:13 36.3 C L 60 19 169/78 H 97 12/17/19 03:31 36.4 C L 62 16 117/73 95 Laboratory Results Laboratory Results - last 24 hr 12/17/19 12/17/19 12/17/19 06:37 07:05 07:05 WBC 7.16 RBC 3.77 L Hgb 10.8 L Hct 33.0 L MCV 87.5 MCH 28.6 MCHC 32.7 RDW Std Deviation 45.9 RDW Coeff of Alyssa 14.5 Plt Count 289 MPV 11.0 H Immature Gran % (Auto) 0.1 Neut % (Auto) 71.5 Lymph % (Auto) 14.8 [place] % (Auto) 10.1 Eos % (Auto) 2.8 Baso % (Auto) 0.7 Neut # (Auto) 5.12 Lymph # (Auto) 1.06 L [place] # (Auto) 0.72 H Eos # (Auto) 0.20 Baso # (Auto) 0.05 Immature Gran # (Auto) 0.01 Sodium 138 Potassium 3.7 Chloride 104 Carbon Dioxide 25 Anion Gap 9.0 BUN 22 H Creatinine 0.99 Est Cr Clr Drug Dosing 43.1 Est GFR ( Amer) 65.1 Est GFR (Non-Af Amer) 56.1 BUN/Creatinine Ratio 22.3 H Glucose 112 H POC Glucose 114 H Calcium 9.1 Diagnostic Findings Chest x-ray 12/17/2019 No pneumothorax. No vascular congestion. Trivial left pleural effusion
[2019-12-17] MEDS: FAMOTIDINE 20 MG in SYRINGE 3 ML IV SCH ×2 (14:44→21:00)
[2019-12-17] MEDS: SUCRALFATE 1 GM/10 ML UDC PO SCH ×3 (14:44→20:54)
[2019-12-17] MEDS: SIMVASTATIN 10 MG TAB PO SCH (20:55)
[2019-12-17] MEDS: BIMATOPROST 0.01% OP SOLN 2.5 ML BTL OP SCH (20:56)
--- NOTE | 2019-12-17 21:17 | Hospitalist Progress Note ---
Date of Service December 17, 2019 Assessment & Plan (1) S/P placement of cardiac pacemaker: by Dr Wolff for tachy-amber syndrome, [id number] a.fib. device functioning well. eliquis resumed. cxr w/o pneumothorax or edema. 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 (3) Atrial fibrillation with RVR: elective cardioversion several days ago. unfortunately did not remain in NSR long - presented with rapid a.fib at time of admission. amiodarone increased to TID dosing. continued with runs of PAF despite such. s/p permanent pacemaker placement yesterday for tachy-amber syndrome. will ultimately need AV node ablation. cont toprol xl BID. resumed eliquis. (4) Severe protein-calorie malnutrition: patient reporting 20 pounds of weight loss of late, but her weight this admission is similar to 1 year ago. has had grieving/depression in setting of her 's recent . will need close f/u with PCP for this. she has had severe GERD symptoms and I thus I have recommended GI referral for potential EGD. (5) Demand ischemia of myocardium: peak troponin 0.3. no evidence of ACS. demand ischemia 2nd to rapid a.fib. (6) CAD (coronary artery disease): cont asa cont BB cont RADHA cont statin (7) Cardiomyopathy: ischemic cardiomyopathy compensated (8) Hypercholesterolemia: statin (9) Hypertension: low BPs this am gave 250cc bolus x 2 with resolution of hypotension lisinopril dose decreased to once daily from BID follow (10) Chronic systolic CHF (congestive heart failure): compensated metoprolol xl, lasix, RADHA (11) GERD (gastroesophageal reflux disease): severe by history start IV pepcid BID at. discharge change to PO PPI add carafate 1gm qid patient needs GI f/u for this in light of recent weight loss, lack of appetite, etc (12) DVT prophylaxis: orly appreciate PT eval today not ready for d/c due to low BP, nausea, inability to eat/drink but hopefully tomorrow for d/c daughter updated at bedside Admission and Anticipated Discharge Date Admission Date: December 14, 2019 Subjective patient feeling poorly today. nausea, poor appetite, simply "feels sick." BPs low this am but denies dizziness. tele with pacing on monitor thru the night. patient does report that she "eats tums every day" because of frequent heartburn symptoms. takes 5 or more tums on regular basis. Review of Systems Constitutional: + anorexia; no fever Respiratory: no cough and no dyspnea Cardiovascular: no chest pain and no orthopnea Physical Exam Constitutional: well developed and well nourished; no acute distress and no altered mental status ENMT: external ear and nose normal, oropharynx normal Respiratory: normal respiratory effort, lungs clear to auscultation Cardiovascular: Rate/Rhythm: regular rate and regular rhythm Heart Sounds: normal S1 and normal S2; no murmur Vessels: posterior tibial pulses present and dorsalis pedis pulses present; no JVD Extremities: no edema Gastrointestinal (Abdomen): normal bowel sounds, soft, nontender, no hepatosplenomegaly Psychiatric: A+Ox3, euthymic affect Results & Data Results & Data ([facility]) Vital Signs (Past 12 Hours) Vital Signs Temp Pulse Resp BP BP Pulse Ox 12/17/19 19:06 36.7 C 60 18 130/74 94 12/17/19 16:00 61 12/17/19 15:36 36.7 C 60 20 117/72 95 12/17/19 12:47 95 12/17/19 12:11 93/59 L 12/17/19 12:00 60 12/17/19 11:16 36.4 C L 60 18 87/49 L 95 Laboratory Results Laboratory Results - last 24 hr 12/17/19 12/17/19 12/17/19 06:37 07:05 07:05 WBC 7.16 RBC 3.77 L Hgb 10.8 L Hct 33.0 L MCV 87.5 MCH 28.6 MCHC 32.7 RDW Std Deviation 45.9 RDW Coeff of Alyssa 14.5 Plt Count 289 MPV 11.0 H Immature Gran % (Auto) 0.1 Neut % (Auto) 71.5 Lymph % (Auto) 14.8 [place] % (Auto) 10.1 Eos % (Auto) 2.8 Baso % (Auto) 0.7 Neut # (Auto) 5.12 Lymph # (Auto) 1.06 L [place] # (Auto) 0.72 H Eos # (Auto) 0.20 Baso # (Auto) 0.05 Immature Gran # (Auto) 0.01 Sodium 138 Potassium 3.7 Chloride 104 Carbon Dioxide 25 Anion Gap 9.0 BUN 22 H Creatinine 0.99 Est Cr Clr Drug Dosing 43.1 Est GFR ( Amer) 65.1 Est GFR (Non-Af Amer) 56.1 BUN/Creatinine Ratio 22.3 H Glucose 112 H POC Glucose 114 H Calcium 9.1 PG Care Time/CCT Total # of Minutes Spent Total Time Spent with Patient: Total time spent is greater than 50% in coordination of care (as documented) at patient's floor/unit and/or counseling patient: Coding Level of Care Code 06674 Subseq Hosp Care Lvl 3 Diagnoses S/P placement of cardiac pacemaker Z95.0 Tachy-amber syndrome I49.5 Atrial fibrillation with RVR I48.91 Severe protein-calorie malnutrition E43 Demand ischemia of myocardium I24.8 CAD (coronary artery disease) I25.10 Cardiomyopathy I42.9 Hypercholesterolemia E78.00 Hypertension I10 Chronic systolic CHF (congestive heart failure) I50.22 GERD (gastroesophageal reflux disease) K21.9 DVT prophylaxis Z29.9
[2019-12-18 07:51] LABS: BUN Creatinine Ratio 20.5 (10-20); Calcium 8.7 mg/dl (8.5-10.1); Est GFR (African American) 61.3; Est GFR (Non-African American) 52.9; Potassium 3.7 mmol/L (3.5-5.1)
[2019-12-18] MEDS: SUCRALFATE 1 GM/10 ML UDC PO SCH (08:48)
[2019-12-18] MEDS: FUROSEMIDE 20 MG TAB PO SCH (08:48)
[2019-12-18] MEDS: DOCUSATE SODIUM 100 MG CAP PO SCH (08:48)
[2019-12-18] MEDS: APIXABAN 5 MG TABLET PO SCH (08:50)
[2019-12-18] MEDS: METOPROLOL SUCC 50MG EXT REL TAB PO SCH (08:50)
[2019-12-18] MEDS: CHOLECALCIFEROL 1,000 UNITS 25 MCG TAB PO SCH (08:50)
[2019-12-18] MEDS: POTASSIUM CHLORIDE 20 MEQ TABCR PO SCH (08:50)
[2019-12-18] MEDS: ASPIRIN 81 MG ECTAB PO SCH (08:50)
[2019-12-18] MEDS: CALCIUM 600MG + VIT D 400 IU TAB PO SCH (08:50)
[2019-12-18] MEDS: TIMOLOL GFS 0.5% OPH SOLN 74 DROPS/5 ML BTL OPB SCH (08:52)
[2019-12-18] MEDS ORDERED: AMIODARONE 200 MG TAB PO SCH (09:00)
[2019-12-18] MEDS ORDERED: lisinopril 10 MG TAB PO SCH (09:00)
--- NOTE | 2019-12-18 10:41 | Discharge Summary ---
Date of Service date of admission - December 14, 2019 date of discharge - December 18, 2019 Admission HPI Per Admitting Provider The patient is a 74-year-old female with a past medical history including atrial fibrillation, atrial fibrillation with RVR, chronic anticoagulation with El iquis, hypertension, glaucoma, hyperlipidemia, HFrEF, tricuspid regurgitation, aortic insufficiency, mitral regurgitation. She underwent cardioversion by Dr. Skip Lopez 2 days ago, on 12/12/2019, and reports continued to feel fatigue over the next 2 days, and awoke this morning as noted above. In the emergency department, she was found to be in atrial fibrillation with RVR, and was given Cardizem 10 mg IV by the ED staff. Review of laboratory shows a potassium was borderline at 3.6, and troponin is not been ordered and will be added at this time. Chest x-ray just being performed now, and will be reviewed shortly. The patient denies any sense of palpitations. She denies any recent travels or sick exposures. Principal Diagnosis a.fib with RVR s/p permanent pacemaker placement Discharge Exam Constitutional well developed and well nourished; no acute distress and no altered mental status ENMT external ear and nose normal, oropharynx normal Respiratory normal respiratory effort, lungs clear to auscultation Cardiovascular Rate/Rhythm: regular rate and regular rhythm Heart Sounds: normal S1 and normal S2; no murmur Vessels: posterior tibial pulses present and dorsalis pedis pulses present; no JVD Extremities: no edema Chest (Breasts) Chest: + pacemaker (left upper chest - dressing intact; no hematoma ) Gastrointestinal (Abdomen) normal bowel sounds, soft, nontender, no hepatosplenomegaly Psychiatric A+Ox3, euthymic affect Discharge Data Allergies Allergy/AdvReac Type Severity Reaction Status Date / Time No Known Drug Allergies Allergy Unknown . Verified 12/14/19 05:47 Consultations [facility] Cardiology - Dr Skip Lopez [facility] Electrophysiology - Dr Nallely Wolff PT Procedures Performed Operation Date: 12/16/19 11:30 Actual Procedures p Pacer with A/V Leads (Dual) - Nallely Wolff DO s Bundle of his Recording - Nallely Wolff DO s Venogram, Unilateral - Nallely Wolff DO echocardiogram: * mild LVH * EF 55-60% * LV wall motion normal * mod-severe mitral regurgitation * severe tricuspid regurgitation * mild-moderate pulmonary HTN * in comparison to prior study overall LV systolic function has improved chest x-ray: no post-pacemaker pneumothorax Hospital Course (1) S/P placement of cardiac pacemaker: Patient has had significant challenges with rate and rhythm control with her atrial fibrillation over time. She had just underwent elective cardioversion in the week leading up to admission and despite such she did not remain in NSR very long. At time of ER presentation she was back in rapid a.fib. When patient is in rapid a.fib she does not tolerate such from a cardiopulmonary standpoint. She was seen in consult by [facility] Cardiology and it was felt that permanent pacemaker placement would be advisable with ultimate AV eunice ablation in the future. Thus, Dr Nallely Wolff was consulted, and she placed a permanent pacemaker for for tachy-amber syndrome/rtbdulgwp-if-qdcdjhy a.fib. Post-op chest x-ray failed to show pneumothorax or edema. Device was functioning well following implantation. Eliquis was resumed post-operatively without any complicating pocket hematoma. At discharge she was given instructions on left arm restrictions. [facility] will arrange a pacemaker check within a week of discharge. 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 Patient to likely have consideration for AV eunice ablation in the future. (3) Atrial fibrillation with RVR: Patient had undergone elective cardioversion several days prior to admission. Unfortunately did not remain in NSR long - presented with rapid a.fib at time of admission. Her oral amiodarone was increased to TID dosing during the stay and had IV amiodarone following her pacemaker placement. As noted above the patient is now s/p permanent pacemaker placement. Will ultimately need AV node ablation. At discharge she will continue amiodarone 200mg BID, toprol xl BID, and eliquis. [facility] will arrange follow-up appointments for pacer check, etc. (4) Severe protein-calorie malnutrition: patient reported 20 pounds of weight loss, much of it since her 's . had had grieving/depression in the setting of her 's recent . will need close f/u with PCP for this. she reported severe GERD symptoms, anorexia, and early satiety I thus I have recommended [facility] referral for potential EGD. (5) Demand ischemia of myocardium: peak troponin 0.3. no evidence of ACS. demand ischemia 2nd to rapid a.fib. (6) CAD (coronary artery disease): cont asa cont BB cont RADHA cont statin no evidence of ACS while here (7) Cardiomyopathy: history of ischemic cardiomyopathy with depressed EF. EF has recovered with EF 55-60% on echo this admission. remained compensated throughout her stay. (8) Hypercholesterolemia: continue statin (9) Hypertension: Patient had low blood pressure the morning after her pacemaker insertion. She required several small saline boluses. Hypotension resolved with such. Her lisinopril dose was decreased to once daily from BID. After the fluid and change in lisinopril she had no further low BPs. (10) Chronic systolic CHF (congestive heart failure): compensated throughout the stay. as noted above she has had a recovery in her EF; ejection fraction is now 55- 60%. metoprolol xl, lasix, RADHA to be continued. (11) GERD (gastroesophageal reflux disease): severe by history. Patient reported "eating large numbers of tums" on daily basis at home. initially received IV pepcid and carafate with improvement in symptoms. her symptoms were especially worse after pacemaker placement. At discharge she was prescribed protonix 40mg daily along with a 7-day course of carafate 1gm BID. I STRONGLY ADVISED [facility] follow-up (Dr Knowles) due to her severe GERD symptoms, recent weight loss, anorexia, early satiety, etc. Total Time Total Time Spent Total Time Spent (In Minutes): 45 Total Time Includes: Examination of the Patient, Discharge Planning, Medication Reconciliation and Communication With Other Providers Discharge Plan Discharge Items Patient Disposition: Home - Self-Care Reason For Visit: RAPID ATRIAL FIBRILLATION Discharge Diagnosis: 1. Zinrioqak-ub-szndvkz atrial fibrillation - improved. 2. Pacemaker placement by Dr Wolff. 3. Chronic heartburn/reflux. 4. Weight loss. Activity: As commented below Activity Comment: do not raise the left elbow over the left shoulder for 1 month Lifting: No more than 10 pounds Lifting Comment: do not lift more than 10 pounds with the left arm for 2 weeks Bathing: Keep incision dry Bathing Comment: keep dressing on and dry until wound check next week Non-emergency contact: Primary Care Provider, Grievance Manager and Edge Beader Call non-emergency contact if: you have any medication questions, your pain is not controlled, your pain is worsening, you have a fever, your wound has increased redness, your wound has increased drainage and your wound pain has increased Follow-up/Referrals: Malick Knowles DO [Physician] - (see Dr Knowles or his PAs - first available appointment; diagnosis - weight loss, severe GERD. ) Pascale Guevara MD [Primary Care Provider] - 12/25/19 10:30 am (see your family doctor within 1 week) Skip Lopez MD [Physician] - (see Dr Lopez or one of his partners within 1-2 weeks ) Nallely Wolff DO [Physician] - 12/24/19 12:45 pm (pacemaker check and wound check ) Diet: Heart Healthy Addtl Attending Provider Instructions: You were admitted to the hospital because of uncontrolled/rapid atrial fibrillation. This is despite recent electrical cardioversion (shocking of the heart to put the heart back into normal rhythm). You were seen by [facility] who recommended increasing your amiodarone and undergoing permanent pacemaker placement. The pacemaker was placed on 12/16/[address] Wolff without complications. The pacemaker is functioning nicely. On 12/17/19 you have quite a bit of nausea and difficulty eating. This is in the setting of chronic heartburn problems that you had been treating with Tums. Your nausea and heartburn improved with acid reducers. Recommendations: 1. INCREASE your amiodarone to 200mg twice a day. New prescription sent to your pharmacy. 2. START pantoprazole 40mg once daily every morning for heartburn. New prescription sent to your pharmacy. 3. TAKE sucralfate 1gm twice daily for 7 days then stop. This, too, is for heartburn. Prescription sent to your pharmacy. 4. Reflux precautions - avoid spicy foods, fried foods, fast foods, eating late at night, eating large meals, lying down immediately after meals, excessive caffeinated beverages, etc. 5. Follow the instructions regarding activity as outlined in this document (you will need to restrict the movement of your left arm for several weeks). 6. Follow-up -- see separate section. 7. Check your weight every morning. Call [facility] if you gain more than 2-3 pounds over 1-2 days. This is usually a sign of fluid retention from heart problems. 8. Please continue to wear a mask when you leave your home, get your flu shot this fall, and continue to practice social distancing. 9. OK to take phhu-bnq-zcanptt tylenol up to 3000mg in 24 hours for pain related to your recent pacemaker surgery. Return to [facility] if - * you have fever over 100 degrees * you have worsening shortness of breath or chest pain * you have concerns about the pacemaker insertion - there is bleeding, swelling, drainage, worsening pain, etc * you have severe palpitations * you have significant dizziness or lightheadedness * any other concerns Addtl Administration Internship Provider Instructions: ACTIVITY RECOMMENDATIONS following pacemaker placement: * Do not raise the LEFT arm over head/left shoulder for 1 month. SPECIAL CARE INSTRUCTIONS: * If bleeding occurs, apply direct pressure to area for 5 minutes. * Call your doctor if you have severe pain, fever, drainage or bleeding at site. * Keep dressing on and dry until your follow-up appointment at [facility]. Pending Studies at Discharge: No Stand-Alone Forms: My [facility], Smoking Cessation Medications and DC Order Prescriptions: New pantoprazole [Protonix] 40 mg tablet,delayed release (DR/EC) 40 mg PO QAM Qty: 30 RF: 2 sucralfate [Carafate] 1 gram tablet 1 g PO BID 7 Days Qty: 14 RF: 0 Continued nitroglycerin 0.4 mg tablet, sublingual 0.4 mg SL UD PRN (Reason: Chest Pain) Qty: 25 RF: 0 timolol maleate 0.25 % drops 1 drp OPB QAM RF: 0 Eliquis 5 mg tablet 5 mg PO BID RF: 0 docusate sodium [Colace] 100 mg Capsule 100 mg PO QAM RF: 0 calcium carbonate-vitamin D3 [Calcium 500 + D] 500 mg(1,250mg) -400 unit Tablet 1 tab PO QAM RF: 0 Lumigan 0.01 % drops 1 drp OPB DAILY@2300 RF: 0 simvastatin 10 mg Tablet 10 mg PO PM Qty: 30 RF: 0 furosemide 20 mg tablet 20 mg PO QAM Qty: 30 RF: 0 cholecalciferol (vitamin D3) [Vitamin D3] 25 mcg (1,000 unit) Tablet 25 mcg PO QAM RF: 0 metoprolol succinate 50 mg Tablet Extended Release 24 Hr 50 mg PO BID Qty: 90 RF: 0 aspirin 81 mg Tablet,Delayed Release (Dr/Ec) 81 mg PO DAILY RF: 0 Changed amiodarone 200 mg Tablet 200 mg PO BID Qty: 60 RF: 1 lisinopril 10 mg Tablet 10 mg PO QAM Qty: 30 RF: 0 Discharge Orders: Discharge Order (Routine); Ordered 12/18/19 Ordered By: Jose Fatima Admission Data Admit Date/Time: 12/14/19 06:34 Attending Provider: Jose Fatima Admit Provider: Kishor Rojas Primary Care Provider: Pascale Guevara Other Providers: Kishor Rojas ; Skip Lopez ; Nallely Wolff Other Interventions: Discharge Summary Assessment (RN) Last Done: 12/18/19 11:48 Coding Level of Care Code D/C Day Management >30 mins Diagnoses S/P placement of cardiac pacemaker Z95.0 Tachy-amber syndrome I49.5 Atrial fibrillation with RVR I48.91 Severe protein-calorie malnutrition E43 Demand ischemia of myocardium I24.8 CAD (coronary artery disease) I25.10 Cardiomyopathy I42.9 Hypercholesterolemia E78.00 Hypertension I10 Chronic systolic CHF (congestive heart failure) I50.22 GERD (gastroesophageal reflux disease) K21.9
--- NOTE | 2019-12-18 10:58 | Cardiology Progress Note ---
Date of Service December 18, 2019 Assessment & Plan (1) Paroxysmal atrial fibrillation: Patient with paroxysmal atrial fibrillation and tachybradycardia syndrome with poor tolerance of atrial fibrillation with rapid response when occurring. Patient underwent pacemaker insertion yesterday with normal device function No further recurrence of atrial fibrillation after IV amiodarone load. Stable for discharge to home. Would continue amiodarone 200 mg twice per day, reduce dose lisinopril 10 mg/day. Metoprolol succinate 50 mg twice per day Eliquis as prescribed. Follow-up scheduled with pacemaker clinic on 12/24/2019 Cardiology follow-up on 01/05/2020 (2) CAD (coronary artery disease): Status post carotid bypass grafting 2006 for left main disease, PRATT graft LAD and known now occluded saphenous vein graft sequentially to OM1 and OM 2 Circumflex distribution still with ischemic risk but overall LV function has improved with medical therapies. Revascularization would require high risk intervention Admission and Anticipated Discharge Date Admission Date: December 14, 2019 Subjective Patient seen and examined, chart, medications, telemetry reviewed. Feels improved. Nausea has resolved. No arrhythmias overnight Pacemaker functioning appropriately Physical Exam Constitutional: WD/WN, vitals as above Eyes: PERRL, conjunctivae normal, anicteric sclerae ENMT: external ear and nose normal, oropharynx normal Neck: trachea midline, no thyromegaly Respiratory: normal respiratory effort, lungs clear to auscultation Cardiovascular: Rate/Rhythm: regular rate, regular rhythm, + tachycardic and + irregularly irregular Heart Sounds: normal S1, normal S2 and + murmur (Grade 2/6 systolic); no gallop Palpation: normal PMI Vessels: normal carotid upstroke and radial pulses present; no JVD and no carotid bruit Extremities: no edema Chest (Breasts): Chest: + pacemaker (Site bandaged without hematoma) Gastrointestinal (Abdomen): normal bowel sounds, soft, nontender, no hepatosplenomegaly Musculoskeletal: no cyanosis or clubbing, extremities motor strength 5/5 Skin: no rashes, warm and dry Neurologic: PERRL, EOMI, accommodation nl, no face palsy, no dysarthria Psychiatric: A+Ox3, euthymic affect Results & Data ([facility]) Vital Signs (Past 12 Hours) Vital Signs Temp Pulse Pulse Pulse Resp BP BP 12/18/19 08:00 61 12/18/19 07:10 36.7 C 61 19 136/72 12/18/19 04:11 37 C 60 18 124/70 12/18/19 00:00 61 12/17/19 23:31 36.8 C 60 18 128/74 Pulse Ox 12/18/19 08:00 12/18/19 07:10 96 12/18/19 04:11 96 12/18/19 00:00 12/17/19 23:31 96 Laboratory Results Laboratory Results - last 24 hr 12/18/19 07:06 Sodium 141 Potassium 3.7 Chloride 108 H Carbon Dioxide 29 Anion Gap 4.0 BUN 21 H Creatinine 1.04 Est Cr Clr Drug Dosing 41.0 Est GFR ( Amer) 61.3 Est GFR (Non-Af Amer) 52.9 BUN/Creatinine Ratio 20.5 H Glucose 90 Calcium 8.7
--- NOTE | 2019-12-24 15:04 | Operative Report (OR) ---
DATE OF OPERATION: 12/16/2019 PREOPERATIVE DIAGNOSIS: Tachybrady syndrome. POSTOPERATIVE DIAGNOSIS: Tachybrady syndrome. PROCEDURE: Dual chamber rate responsive (left bundle) permanent pacemaker along with intracardiac electrogram mapping of the His bundle region along with the external cardioversion under fluoroscopic guidance and a peripheral venogram. SURGEON: Nallely Wolff DO. ASSISTANTS: None. ANESTHESIA: Monitored conscious sedation administered under my supervision by Yina Arias Start time 11:54, end time 01:02. Total of 3 mg of Versed and 75 mcg of fentanyl. INTRAVENOUS FLUIDS: 300 mL ADDITIONAL MEDICINES: 150 mg bolus of amiodarone as well as an amiodarone drip. CONTRAST: 15 mL. ANTIBIOTICS: 1 gram of Ancef. BLOOD LOSS: 20 mL. URINE OUTPUT: Not applicable. SPECIMENS: None. FINDINGS: See below. DRAINS: None. INDICATIONS: This is a 74-year-old female with past medical history for tachybrady syndrome, paroxysmal atrial fibrillation diagnosed in 10/2019, on amiodarone, metoprolol, Eliquis, status post cardioversion in 11/2017, coronary artery disease, history of a CABG in 2006 with PRATT to LAD, SVG to OM, and sequential SVG graft from the OM to the diagonal, SVG to the RCA was known to be occluded, ischemic cardiomyopathy, ejection fraction 40%, chronic heart failure with reduced ejection fraction, [place] Heart Association class 3, mild aortic stenosis, mild mitral regurgitation, moderate tricuspid regurgitation, hypertension, hyperlipidemia. The patient was admitted to [facility] secondary to recurrent atrial fibrillation. She converted back to sinus bradycardia, but due to the evidence of tachybrady syndrome prior to discharge, she was recommended a pacemaker. She was in AFib at the beginning of the procedure. CONSENT: Consent was obtained prior to the patient going into electrophysiology lab. The patient was informed of the risks, benefits and alternative procedure. Risks include but not limited to sudden cardiac , cardiac arrhythmias, cerebrovascular accident, myocardial infarction, injury to the blood vessels, chamber of the heart, lung, bleeding, and infection. The patient understood these risks and agreed with procedure as planned. Informed consent was obtained. DESCRIPTION OF THE PROCEDURE: The patient was brought into electrophysiology lab in a fasting state. She was connected to continuous cardiac monitoring. A timeout was performed to ensure patient identity and procedure correctly. The patient was prepped and draped over the left infraclavicular space in normal surgical standard fashion. Monitored conscious sedation was given throughout the procedure for patient's comfort level. [place] precautions were maintained throughout the procedure. 10 mL of 1% lidocaine, bupivacaine mixture were given in the left deltopectoral groove. Incision was made in left deltopectoral groove. Blunt dissection performed down to identify the cephalic vein; however, none was identified, so peripheral venogram using 10 mL of contrast was performed to identify the axillary vein. Venous axillary access was obtained through a needlestick without any problems. A guidewire was inserted through the needle without any resistance. Then, a 7-[place] OptiSeal sheath was advanced over the guidewire, the dilator was removed and a second guidewire was inserted through the sheath to allow for retained venous access. The sheath was then removed, flushed and the 7-[place] sheath was reinserted over one of the guidewires. Guidewire and dilator were removed. Then, the His sheath was advanced over a Glidewire into the right atrium. The Glidewire and dilator were removed. Then, the lead was advanced through the sheath and intracardiac electrogram mapping of the His region was performed. The patient was in AFib, so, there was no AH, but the HV was 70 milliseconds. I marked where the His was on my fluoroscopy screen with the camera in BL[place] 30 and then I mellissa an imaginary line to the apex and came down about 2 cm from that and marked another dot on my fluoroscopy screen to have an idea of where I wanted to aim for my left bundle lead. Then, I positioned the sheath down into that area. Then I went into UKRAIN[place] 30 and did slight turns to display maneuvers to make sure that the lead and the sheath were up against the septum. Then we did pacing before the lead was screwed in to kind of get an idea of where the notch in V1 morphology as well as my timing from pacing stim to QRS peak in my lateral V5, V6 lead. Then I did a few turns into the septum with the lead, rechecked my morphology with the coming on pacing from a QRS in V1 as well as my pacing stim to the QRS in V5 and V6 and watch my impedance and then I continued to do small turns with taking time in between each few turns to see how progression of my QRS notch was in V1 and my mpedance drops as well as my pacing stim to QRS peak in V5 and V6. Once I felt I was in adequate area of capturing the left bundle, I then gave contrast through the sheath to see that the sheath was up against the septum and how much of the lead was into the septum. Then the His sheath was slid under fluoroscopic guidance. I left the outer 7-[place] OptiSeal sheath in and then I placed over the retained guidewire and 8-[place] OptiSeal sheath and that sheath, the dilator and guidewire were removed and the right atrial lead was positioned into the right atrial appendage. There was fib waves, we tried to burst pacer out of it, but I could not ultimately ended up cardioverting her externally and then we had adequate pacing and sensing thresholds. There was no diaphragmatic stimulation with high output pacing. The 8-[place]icar[place] sheath was peeled away and lead was fixated to pectoralis muscle using 0 silk suture. Then I slit the 7-[place] sheath that was along the left bundle lead and then I fixated the left bundle lead to the pectoralis muscle using 0 silk suture. A pacemaker pocket was created using blunt dissection over the pectoralis muscle and in the pectoralis fascia. The pocket was flushed with copious amounts of bacitracin saline wash and inspected for hemostasis. Pulse generator was then attached to the leads making sure the pins were in appropriate position, passed set screw and set screws were all tightened. Pulse generator was then placed in the pocket, making sure the leads were lying flat beneath the device. A stay stitch using 0 silk suture was used to secure the pectoralis muscle. The incision was then closed in 3-layer fashion with 2-0 Vicryl interrupted suture followed by 3-0 Vicryl interrupted suture, followed by 4-0 Monocryl running stitch and Dermabond was applied. EQUIPMENT: 1. Pulse generator is a [employer] Leonora XT DR MARIA DE JESUS Calhoun [id number], serial number [id number]. 2. Right atrial lead Medtronic 5076-52 cm, serial number [id number]. 3. Left bundle lead is a Medtronic 3830-69 cm, serial number [id number]. INTRAOPERATIVE TESTIN. Right atrial lead: P waves 2.4 millivolts, impedance 657 ohms, threshold 0.8 volts at 0.4 milliseconds. 2. Left bundle lead R waves 8.2 millivolts, impedance 878 ohms, threshold 0.5 volts at 0.4 milliseconds. FINAL MEASUREMENTS THROUGH THE DEVICE: 1. Right atrial lead: P waves 1.3 millivolts, impedance 513 ohms, threshold 0.7 volts at 0.4 milliseconds. 2. Left bundle lead R waves 5.6 millivolts, impedance 779 ohms, threshold 0.5 volts at 0.4 milliseconds. FINAL PARAMETERS: MVP-R 60/130, right atrial amplitude 3.5 volts, pulse width 0.4 milliseconds, sensitivity 0.3 millivolts. Right ventricular amplitude 3.5 volts, pulse width 0.4 milliseconds, sensitivity 1.2 millivolts. IMPRESSION: Successful implantation of a dual chamber rate responsive permanent pacemaker (left bundle position) along with intracardiac electrogram mapping of the His bundle region and external cardioversion and peripheral venogram, all under fluoroscopic guidance secondary to tachybrady syndrome and paroxysmal atrial fibrillation. PLAN: Monitor patient overnight, 12-lead ECG, chest x-ray. She cannot lift the left elbow or left shoulder for 1 month. She cannot lift more than 10 pounds with the left arm for 2 weeks. She is to keep the dressing on and dry until her wound check next week. We can continue the IV amiodarone bag until it is empty and we can increase her metoprolol and she can have her Eliquis. I attest to the content of the Intraoperative Record and any orders documented therein. Any exceptions are noted below. STEVE
== END 2019-12-18 11:50 | disposition home or self-care (01) | DRG 242 ==
LOC: ED 04:23 → 2S 06:34 → SUATTDRO 06:34 → 2S 07:00

== ENCOUNTER 2020-01-21 11:31 | Inpatient (IN) ==
[2020-01-21 12:59] LABS: Basophils # (auto) 0.03 K/uL (0-0.2); Basophils % (auto) 0.4 %; Eosinophils # (auto) 0.12 K/uL (0-0.5); Eosinophils % (auto) 1.7 %; Hematocrit (blood only) 35.1 % (37-47); Hemoglobin 11.3 g/dL (12.0-16.0); Immature Granulocytes # (auto) 0.01 K/uL (0.00-0.02); Immature Granulocytes % (auto) 0.1 %; Lymphocytes # (auto) 0.98 K/uL (1.2-3.4); Mean Corpuscular Hemoglobin 27.8 pg (25-34); Mean Corpuscular Hgb Conc 32.2 g/dL (32-36); Mean Corpuscular Volume 86.2 fL (80-100); Mean Platelet Volume 11.5 fL (7.4-10.4); Monocytes # (auto) 0.52 K/uL (0.11-0.59); Monocytes % (auto) 7.4 %; Neutrophils # (auto) 5.33 K/uL (1.4-6.5); Neutrophils % (auto) 76.4 %; Platelet Count 266 K/uL (130-400); RDW Coefficient of Variation 14.7 % (11.5-14.5); RDW Standard Deviation 46.5 fL (36.4-46.3); Red Blood Count 4.07 M/uL (4.2-5.4); White Blood Count 6.99 K/uL (4.8-10.8)
[2020-01-21] MEDS ORDERED: ACETAMINOPHEN 325 MG TAB PO STA (13:04)
--- NOTE | 2020-01-21 13:08 | Emergency Department Note ---
Impression & Plan Hypertensive urgency, Elevated troponin, Headache ED Provider Note NAME: DAVONTE ABREU AGE: 74 SEX: F : 1945 ARRIVES VIA: Walk-In INFORMANT: Patient ED PROVIDER(S): Ry Durant DO CHIEF COMPLAINT: Elevated blood pressure, headache and nausea HPI: Patient is a 74-year-old female who just had a pacemaker placed last month by Dr. Bear. She had her medications changed around and had a decrease in amiodarone from 400 to 200 and increasing her metoprolol from 50 to 100 mg. She checked her blood pressure at home and was significantly elevated. She came in for further evaluation after calling [facility] cardiology. She denies any chest pain or shortness of breath. No vomiting or diarrhea. No focal weakness or numbness in the arms or legs. Headaches about a 7 out of 10 consistent with a typical headache on her right side. ROS: See above HPI for pertinent positives & negatives. A total of 10 systems reviewed and were otherwise negative. PAST MEDICAL HISTORY:See Below PAST SURGICAL HISTORY:See Below FAMILY HISTORY:See Below SOCIAL HISTORY:See Below HOME MEDICATIONS:See Below ALLERGIES:See Below VITALS:See Below PHYSICAL EXAMINATION: GENERAL: Sitting up in bed, alert, well appearing, well nourished, no distress, non-toxic EYE EXAM: normal conjunctiva. PERRL and EOM's intact. OROPHARYNX: no exudate, no erythema, lips, buccal mucosa, and tongue normal and mucous membranes are moist NECK: supple, no nuchal rigidity, no adenopathy, non-tender LUNGS: Clear to auscultation. Normal chest wall mechanics HEART: no murmurs, S1 normal and S2 normal ABDOMEN: abdomen soft, non-tender, normo-active bowel sounds, no masses, no rebound or guarding. BACK: Back is symmetrical on inspection and there is no deformity, no midline tenderness, no CVA tenderness. SKIN: no rashes and no bruising UPPER EXTREMITIES: upper extremities are grossly normal. LOWER EXTREMITIES: No pitting edema. NEURO EXAM: Normal sensorium, cranial nerves II-XII intact, normal speech, no weakness of arms, no weakness of legs. No drift. Finger to nose intact. Gross s ensation intact. MEDICAL DECISION MAKING: Patient is a 74-year-old female with history of A. fib recently placed pacemaker the presents the ER for elevated blood pressure in combination with not feeling well, mild headache dizziness and nausea. She is completely neurologically intact. She is on Eliquis. Recent change in her medications include amiodarone and metoprolol as listed above. Still on lisinopril. CBC shows no significant leukocytosis and mild anemia 11. INR was unremarkable. BMP was unremarkable as well. Troponin was elevated 0.061. Doubt this is secondary to the previous patient in the November. Question if this is new baseline versus secondary to the elevated blood pressure of 210. Given 1 dose of hydralazine as heart rate was in the low 60s. Systolics came down to the 160s. CT head was negative. Remainder of blood work was unremarkable. Discussed with the hospitalist as well as cardiology and both agree with admission. Triage Nursing notes reviewed. Prior medical records reviewed Vital Signs: reviewed and remarkable for hypertension Differential diagnosis: Benign hypertension, hypertensive emergency, cardiovascular pathology, toxicologic, pheochromocytoma, electrolyte abnormality, renal disease, endorgan damage, as well as other pathologies. ER treatment provided: See below Diagnostics interpreted by me: ECG: Atrial paced rate of 65 Left axis No PVCs Normal QTC Septal infarct No significant change in ST segments from previous EKG in November Cardiac Monitoring: An order was placed for continuous cardiac monitoring. The monitor shows a rate of 70 with sinus rhythm. Laboratory studies: As stated above and show below. Imaging studies: CT head was unremarkable. Chest x-ray shows no acute infiltrate or pneumothorax Consultation(s): D/w Jose Gutierrez hospitalist as well as Dr. Lopez from [facility] cardiology group. ED COURSE: Procedures: none Critical Care: None Past Med/Surg History Medical History (Updated 01/21/20 @ 16:58 by Ry Durant DO) Atrial fibrillation on eliquis Carotid artery stenosis CHF (congestive heart failure) Coronary artery disease of bypass graft of [place] heart with stable angina pectoris Glaucoma Valvular heart disease Mild AR, Moderate posteriorly directed MR, Severe TR per 11/02/19 echo Surgical History History of bilateral tubal ligation History of cardiac cath X 2 (NO STENTS, MOST RECENT 10/2019) History of cataract surgery RT/LEFT History of colonoscopy History of coronary artery bypass graft 2 VESSELS REPAIRED/13 YEARS AGO AT [facility] Family History Mother Heart disease Hypertension Father Heart disease Hypertension Denies family history of Ovarian cancer Prostate cancer Myocardial infarction Breast cancer Colorectal cancer Social History Smoking Status: Never smoker Second Hand Exposure: No; Do You Dip or Chew Tobacco: No; Tobacco Cessation Education Requested by Patient: No Hx Alcohol Use: No Hx Substance Use: No Preferred Language: Somali Communication Ability: Effective Clay Stain Mixer Required: No Beliefs That Will Affect Care: None marital status: Current Living Situation: Family Current Living Situation Comment: son lives with her current occupational status: retired Feels Safe at Home: Yes Dental Care, Regularly: Yes Seatbelt Use: always Assistive Devices: None Allergies Allergies Allergy/AdvReac Type Severity Reaction Status Date / Time No Known Drug Allergies Allergy Unknown . Verified 01/21/20 14:20 Home Meds Home Medications Medication Instructions Recorded Confirmed nitroglycerin 0.4 mg sublingual 0.4 mg SL UD PRN #25 tab 09/09/18 01/21/20 tablet timolol maleate 0.25 % eye drops 1 drp OPB BID ml 10/01/18 01/21/20 Eliquis 5 mg PO BID 03/22/19 01/21/20 Lumigan 1 drp OPB DAILY@2300 11/02/19 01/21/20 calcium carbonate-vitamin D3 1 tab PO QAM 11/02/19 01/21/20 [Calcium 500 + D] aspirin 81 mg PO DAILY 12/14/19 01/21/20 amiodarone 0 mg PO BID 01/21/20 01/21/20 lisinopril 0 mg PO QAM 01/21/20 01/21/20 Previous Rx's Medication Instructions Recorded furosemide 20 mg PO QAM #30 tab 11/05/19 simvastatin 10 mg PO PM #30 tab 11/05/19 metoprolol succinate 50 mg PO BID #90 tab 12/12/19 ondansetron HCl 4 mg tablet 4 mg PO QID PRN #10 tab 12/25/19 pantoprazole 40 mg tablet,delayed 40 mg PO QAM #90 tab 12/26/19 release Results & Data (ED) Vital Signs Vital Signs - 24 hr 01/21/20 11:45 01/21/20 12:00 01/21/20 12:27 Temperature 37.1 C Temperature Source Oral Pulse Rate 77 60 60 Pulse Rate [Left Finger] Pulse Rate from SpO2 Sensor 60 60 Pulse Rhythm Regular Pulse Strength Normal Respiratory Rate 16 19 18 Respiratory Effort / Characteristics Non-Labored Spontaneous Respiratory Depth Normal Respiratory Pattern Regular Blood Pressure 210/92 H 190/85 H Blood Pressure [Left Arm] Blood Pressure Mean 131 124 Blood Pressure Mean [Left Arm] Blood Pressure Position Sitting Pulse Oximetry 97 98 98 Oxygen Delivery Method Room Air Sepsis Recent Fever Within 48 Hours No Sepsis New/Unexplained Change in Mental Status N/A Sepsis Action Taken by Nursing No Action Required 01/21/20 12:30 01/21/20 12:31 01/21/20 12:58 Temperature Temperature Source Pulse Rate 60 60 Pulse Rate [Left Finger] Pulse Rate from SpO2 Sensor 60 60 Pulse Rhythm Pulse Strength Respiratory Rate 17 21 Respiratory Effort / Characteristics Respiratory Depth Respiratory Pattern Blood Pressure 188/77 H Blood Pressure [Left Arm] Blood Pressure Mean 102 Blood Pressure Mean [Left Arm] Blood Pressure Position Pulse Oximetry 98 98 97 Oxygen Delivery Method Room Air Sepsis Recent Fever Within 48 Hours Sepsis New/Unexplained Change in Mental Status Sepsis Action Taken by Nursing 01/21/20 13:00 01/21/20 13:03 01/21/20 14:19 Temperature Temperature Source Pulse Rate 60 62 Pulse Rate [Left Finger] 61 64 Pulse Rate from SpO2 Sensor 60 62 Pulse Rhythm Pulse Strength Respiratory Rate 18 20 16 Respiratory Effort / Characteristics Respiratory Depth Respiratory Pattern Blood Pressure 186/91 H 198/92 H Blood Pressure [Left Arm] 186/91 H 198/92 H Blood Pressure Mean 137 112 Blood Pressure Mean [Left Arm] 122 127 Blood Pressure Position Pulse Oximetry 98 98 97 Oxygen Delivery Method Room Air Room Air Sepsis Recent Fever Within 48 Hours Sepsis New/Unexplained Change in Mental Status Sepsis Action Taken by Nursing 01/21/20 14:30 01/21/20 14:35 01/21/20 14:45 Temperature Temperature Source Pulse Rate 66 66 62 Pulse Rate [Left Finger] Pulse Rate from SpO2 Sensor 66 66 62 Pulse Rhythm Pulse Strength Respiratory Rate 16 20 20 Respiratory Effort / Characteristics Respiratory Depth Respiratory Pattern Blood Pressure 202/89 H 187/85 H 167/75 H Blood Pressure [Left Arm] Blood Pressure Mean 109 117 95 Blood Pressure Mean [Left Arm] Blood Pressure Position Pulse Oximetry 98 98 98 Oxygen Delivery Method Sepsis Recent Fever Within 48 Hours Sepsis New/Unexplained Change in Mental Status Sepsis Action Taken by Nursing 01/21/20 15:00 01/21/20 15:15 Temperature Temperature Source Pulse Rate 62 65 Pulse Rate [Left Finger] Pulse Rate from SpO2 Sensor 62 65 Pulse Rhythm Pulse Strength Respiratory Rate 19 21 Respiratory Effort / Characteristics Respiratory Depth Respiratory Pattern Blood Pressure 173/82 H 170/73 H Blood Pressure [Left Arm] Blood Pressure Mean 121 111 Blood Pressure Mean [Left Arm] Blood Pressure Position Pulse Oximetry 99 98 Oxygen Delivery Method Sepsis Recent Fever Within 48 Hours Sepsis New/Unexplained Change in Mental Status Sepsis Action Taken by Nursing Laboratory Data Result diagrams: 01/21/20 12:10 01/21/20 12:10 Lab Results 01/21/20 01/21/20 01/21/20 Range/Units 12:10 12:10 12:10 WBC 6.99 (4.8-10.8) K/uL RBC 4.07 L (4.2-5.4) M/uL Hgb 11.3 L (12.0-16.0) g/dL Hct 35.1 L (37-47) % MCV 86.2 (80-100) fL MCH 27.8 (25-34) pg MCHC 32.2 (32-36) g/dL RDW Std Deviation 46.5 H (36.4-46.3) fL RDW Coeff of Alyssa 14.7 H (11.5-14.5) % Plt Count 266 (130-400) K/uL MPV 11.5 H (7.4-10.4) fL Immature Gran % (Auto) 0.1 % Neut % (Auto) 76.4 % Lymph % (Auto) 14.0 % [place] % (Auto) 7.4 % Eos % (Auto) 1.7 % Baso % (Auto) 0.4 % Neut # (Auto) 5.33 (1.4-6.5) K/uL Lymph # (Auto) 0.98 L (1.2-3.4) K/uL [place] # (Auto) 0.52 (0.11-0.59) K/uL Eos # (Auto) 0.12 (0-0.5) K/uL Baso # (Auto) 0.03 (0-0.2) K/uL Immature Gran # (Auto) 0.01 (0.00-0.02) K/uL PT 11.1 (9.0-12.0) Seconds INR 1.1 (0.9-1.1) APTT 31.3 H (21.0-31.0) Seconds PTT Ratio 1.1 Sodium 139 (136-145) mmol/L Potassium 3.5 (3.5-5.1) mmol/L Chloride 105 (98-107) mmol/L Carbon Dioxide 29 (21-32) mmol/L Anion Gap 5.0 (3-11) BUN 20 H (7-18) mg/dl Creatinine 0.97 (0.6-1.2) mg/dl Est Cr Clr Drug Dosing 43.9 ml/min Est GFR ( Amer) 66.7 Est GFR (Non-Af Amer) 57.5 BUN/Creatinine Ratio 20.4 H (10-20) Glucose 97 (70-99) mg/dl Calcium 9.3 (8.5-10.1) mg/dl Total Bilirubin 0.7 (0.2-1) mg/dl AST 21 (15-37) U/L ALT 26 (12-78) U/L Alkaline Phosphatase 98 (45-117) U/L Troponin I 0.061 H* (0-0.045) ng/ml Total Protein 7.5 (6.4-8.2) gm/dl Albumin 3.6 (3.4-5.0) gm/dl Globulin 3.9 (2.5-4.0) gm/dl Albumin/Globulin Ratio 0.9 (0.9-2) Lipase 134 (73-393) U/L TSH 2.200 (0.300-4.500) uIu/ml Administered Medications Discontinued Medications Acetaminophen (Acetaminophen 325 Mg Tab) 650 mg PO NOW STA Stop: 01/21/20 13:05 Last Admin: 01/21/20 14:22 Dose: 650 mg Documented by: [id number] Aspirin (Aspirin Chew 324 Mg) 324 mg PO NOW STA Stop: 01/21/20 14:26 Last Admin: 01/21/20 14:31 Dose: 324 mg Documented by: [id number] Hydralazine HCl (Hydralazine Hcl 20 Mg/Ml Vial) 10 mg IV NOW STA Stop: 01/21/20 14:27 Last Admin: 01/21/20 14:32 Dose: 10 mg Documented by: [id number] Labetalol HCl (Labetalol Hcl Iv 5 Mg/Ml 20ml) 10 mg IV NOW STA Stop: 01/21/20 14:26 Last Admin: 01/21/20 14:32 Dose: Not Given Documented by: [id number] Discharge Plan Visit Data Chief Complaint: Hypertension Stated Complaint: HYPERTENSION ED Provider: Ry Durant Discharge Problem: Hypertensive urgency, Elevated troponin, Headache Patient Disposition: Admitted As Inpatient Discharge Instructions Interventions: ED Discharge Assessment Last Done: 01/21/20 15:36 Discharge Problem: Headache Qualifiers: Headache type: unspecified Headache chronicity pattern: unspecified pattern Intractability: not intractable Qualified Code(s): R51.9 - Headache, unspecified
[2020-01-21 13:12] LABS: INR 1.1 (0.9-1.1); Partial Thromboplastin Ratio 1.1; Partial Thromboplastin Time 31.3 Seconds (21.0-31.0); Prothrombin Time 11.1 Seconds (9.0-12.0)
[2020-01-21 13:16] LABS: Albumin Level 3.6 gm/dl (3.4-5.0); BUN Creatinine Ratio 20.4 (10-20); Calcium 9.3 mg/dl (8.5-10.1); Creatinine Clr Calc Pharmacy 43.9 ml/min; Est GFR (African American) 66.7; Est GFR (Non-African American) 57.5; Potassium 3.5 mmol/L (3.5-5.1)
[2020-01-21 13:25] LABS: Albumin Globulin Ratio 0.9 (0.9-2); Bilirubin,Total 0.7 mg/dl (0.2-1); Globulin 3.9 gm/dl (2.5-4.0); Total Protein 7.5 gm/dl (6.4-8.2); Troponin I 0.061 ng/ml (0-0.045)
--- NOTE | 2020-01-21 13:33 | XRay Report ---
XR chest 1V portable HISTORY: Atypical Chest Pain COMPARISON: Chest 12/17/2019. FINDINGS: The lungs are clear. The cardiac silhouette remains mildly enlarged. There are poststernoto my changes and a left-sided dual-chamber pacemaker. No pleural effusions. No pneumothorax. No evidenc e for pulmonary edema. Retrocardiac lobular density favors a hiatus hernia. This remains unchanged. IMPRESSION: No significant change compared to the prior study. No acute process. ACT 112: Negative or not required by law. Electronically signed by: Faisal Vargas M.D. 01/21/2020 1:32 PM
--- NOTE | 2020-01-21 14:06 | CT Scan Report ---
CT head/brain wo con CLINICAL HISTORY: 74 years-old Female with GORDON. Acute headache with hypertension TECHNIQUE: Multiple axial CT images of the head were obtained without contrast. A dose lowering tech nique was utilized adhering to the principles of ALARA. CT DOSE: 537.48 mGy.cm COMPARISON: Head CT 03/22/2019 FINDINGS: No acute intracranial hemorrhage, midline shift, intracranial mass, hydrocephalus, territorial ischem ia or abnormal extra-axial collection. Mild age-related involutional changes. Patchy white matter hyp odensities suggest chronic microvascular ischemic disease. The calvarium is intact. The paranasal sinuses, mastoid air cells, and middle ear cavities are clear . IMPRESSION: No acute intracranial abnormality. ACT 112: Negative or not required by law. The above report was generated using voice recognition software. It may contain grammatical, syntax o r spelling errors. Electronically signed by: Dada Lang M.D. 01/21/2020 2:04 PM
[2020-01-21] MEDS ORDERED: ASPIRIN CHEW 324 MG PO STA (14:25)
[2020-01-21] MEDS ORDERED: LABETALOL HCL IV 5 MG/ML 20ML IV STA (14:25)
[2020-01-21] MEDS ORDERED: hydrALAZINE HCL 20 MG/ML VIAL IV STA (14:26)
--- NOTE | 2020-01-21 15:22 | History & Physical Report ---
Date of Service January 21, 2020 Assessment & Plan (1) Hypertensive urgency: Continue her usual outpatient medications of amiodarone 200 mg p.o. daily, Lasix 20 mg p.o. daily. We will increase her lisinopril back up to 20 mg p.o. daily (reduced during last admission) Hydralazine IV 5mg Q4H PRN Consult her sound controller Dr Lopez (2) Headache: Not acute or related to current increased BP. Reportedly started last admission. ?related to amiodarone, pantoprazole, pacemaker insertion, stopping her usual tums Acetaminophen PRN. Reduction in amiodarone per cardiology and monitor. (3) Nausea: As above, headache and nausea appear to be interlinked. (4) Atrial fibrillation: Paroxysmal, currently in atrial sensed rhythm (5) Valvular heart disease: (6) Coronary artery disease of bypass graft of [place] heart with stable angina pectoris: Continue ASA, Eliquis, lisinopril, metoprolol, simvastatin (7) GERD (gastroesophageal reflux disease): Continue pantoprazole 40mg PO daily Previously taking excessive tums for years prior to last admission. (8) DVT prophylaxis: Continue her usual Eliquis 5mg PO BID Admission and Anticipated Discharge Date Admission Date: 01/21/2020 History of Present Illness Chief Complaint: Elevated blood pressure Primary Care Provider: Pascale Guevara MD Maribell Reveles is a 74 year old female who presents to the on advice of her sound controller for elevated blood pressure, headache and nausea. Her headache and nausea have been ongoing for last month since starting amiodarone, pantoprazole and having a pacemaker insertion last admission. No recent worsening of her symptoms today however she took her blood pressure at home and systolic > 200 therefore called her cardiology office and was recommended she came to the ER for further workup. She reports her nausea is improved with reduction in amiodarone earlier this month however her headache has stayed much the same. Headache is constant over the right eye, severity 2/10, no radiation, no neck pain on this side. On Jan 04 amiodarone decreased from 200mg BID to daily and metoprolol succinate increased from 50mg to 100mg BID. During her last admission for a. fib RVR in November she underwent pacemaker insertion for tachybrady syndrome with ultimate goal of AV eunice ablation. She feels fatigued when in a. fib, even when rate control hence why a rhythm control strategy was adopted. She has not felt the same fatigue lately and the headache and nausea is something separate that only started during that last hospitalization. In the ER her blood pressure was noted to be significantly elevated. 210/92 and she received hydralazine 10mg IV and labetalol 10mg IV with subsequent improvement systolic < 180. Her sound controller was contacted and advised admission. Allergies Allergy/AdvReac Type Severity Reaction Status Date / Time No Known Drug Allergies Allergy Unknown . Verified 01/21/20 14:20 Home Medications Home Medications Medication Instructions Recorded Confirmed Type nitroglycerin 0.4 mg sublingual 0.4 mg SL UD PRN #25 tab 09/09/18 01/21/20 History tablet timolol maleate 0.25 % eye drops 1 drp OPB BID ml 10/01/18 01/21/20 History Eliquis 5 mg PO BID 03/22/19 01/21/20 History Lumigan 1 drp OPB DAILY@2300 11/02/19 01/21/20 History calcium carbonate-vitamin D3 1 tab PO QAM 11/02/19 01/21/20 History [Calcium 500 + D] furosemide 20 mg PO QAM #30 tab 11/05/19 01/21/20 Rx simvastatin 10 mg PO PM #30 tab 11/05/19 01/21/20 Rx metoprolol succinate 50 mg PO BID #90 tab 12/12/19 01/21/20 Rx aspirin 81 mg PO DAILY 12/14/19 01/21/20 History ondansetron HCl 4 mg tablet 4 mg PO QID PRN #10 tab 12/25/19 01/21/20 Rx pantoprazole 40 mg tablet,delayed 40 mg PO QAM #90 tab 12/26/19 01/21/20 Rx release amiodarone 0 mg PO BID 01/21/20 01/21/20 History lisinopril 0 mg PO QAM 01/21/20 01/21/20 History Past Med/Surg History Medical History Atrial fibrillation on eliquis Carotid artery stenosis CHF (congestive heart failure) Coronary artery disease of bypass graft of [place] heart with stable angina pectoris Glaucoma Valvular heart disease Mild AR, Moderate posteriorly directed MR, Severe TR per 11/02/19 echo Surgical History History of bilateral tubal ligation History of cardiac cath X 2 (NO STENTS, MOST RECENT 10/2019) History of cataract surgery RT/LEFT History of colonoscopy History of coronary artery bypass graft 2 VESSELS REPAIRED/13 YEARS AGO AT [facility] Family History Mother Heart disease Hypertension Father Heart disease Hypertension Denies family history of Ovarian cancer Prostate cancer Myocardial infarction Breast cancer Colorectal cancer Social History Smoking Status: Never smoker Second Hand Exposure: No; Do You Dip or Chew Tobacco: No; Tobacco Cessation Education Requested by Patient: No Hx Alcohol Use: No Hx Substance Use: No Preferred Language: Belarusian Communication Ability: Effective Manager Hydraulic Required: No Beliefs That Will Affect Care: None marital status: Current Living Situation: Family Current Living Situation Comment: son lives with her current occupational status: retired Feels Safe at Home: Yes Dental Care, Regularly: Yes Seatbelt Use: always Assistive Devices: None Review of Systems Review of Systems: All systems reviewed & are unremarkable except as noted in HPI & below Twitching of eyelids and eyebrows chronically Physical Exam Constitutional: well developed and well nourished; no acute distress Eyes: PERRL, conjunctivae normal, anicteric sclerae Twitching of bilateral R > L eyebrows/eyelids ENMT: external ear and nose normal, oropharynx normal Neck: trachea midline, no thyromegaly Respiratory: normal respiratory effort, lungs clear to auscultation Cardiovascular: Rate/Rhythm: regular rate and regular rhythm Heart Sounds: + murmur Gastrointestinal (Abdomen): normal bowel sounds, soft, nontender, no hepatosplenomegaly Musculoskeletal: no cyanosis or clubbing, extremities motor strength 5/5 Skin: no rashes, warm and dry Neurologic: CN's II-XI intact bilaterally (chronic eyelid/eyebrow twitching as above), moves all extremities and awake; no focal motor deficits and not confused Speech / Cognition: normal speech Motor/Sensory: + tremor (mild action tremor on right); no pronator drift and no sensory deficit Psychiatric: A+Ox3, euthymic affect Genitourinary: no CVA tenderness Results & Data Results & Data ([facility]) Vital Signs (Past 12 Hours) Vital Signs Temp Pulse Pulse Resp BP BP Pulse Ox 01/21/20 15:00 62 19 173/82 H 99 01/21/20 14:45 62 20 167/75 H 98 01/21/20 14:35 66 20 187/85 H 98 01/21/20 14:30 66 16 202/89 H 98 01/21/20 14:19 62 64 16 198/92 H 198/92 H 97 01/21/20 13:03 61 20 186/91 H 98 01/21/20 13:00 60 18 186/91 H 98 01/21/20 12:58 97 01/21/20 12:31 60 21 188/77 H 98 01/21/20 12:30 60 17 98 01/21/20 12:27 60 18 98 01/21/20 12:00 60 19 190/85 H 98 01/21/20 11:45 37.1 C 77 16 210/[address] head/brain wo con IMPRESSION: No acute intracranial abnormality. XR chest 1V portable IMPRESSION: No significant change compared to the prior study. No acute process. ECG Indication: other (Hypertension) Rate (beats per minute): 65 Findings: + paced rhythm (Atrial paced with prolonged AV conduction); no acute ischemic change Comparison ECG Date: from (December 16, 2019) Change: the following changes noted (T wave flattening in lateral leads no longer present) Code Status & VTE Plan Code Status Full VTE Prophylaxis Plan VTE Prophylaxis will be ordered: Yes PG Care Time/CCT Total # of Minutes Spent Total Time Spent with Patient: Total time spent is greater than 50% in coordination of care (as documented) at patient's floor/unit and/or counseling patient: Coding Level of Care Code 17887 OBS Care - Level 3 Diagnoses Hypertensive urgency I16.0 Headache R51.9 Headache chronicity pattern: unspecified pattern Headache type: unspecified Intractability: not intractable Nausea R11.0 Atrial fibrillation I48.91 Atrial fibrillation type: unspecified Valvular heart disease I38 Coronary artery disease of bypass graft of [place] heart with stable angina pectoris I25.708 GERD (gastroesophageal reflux disease) K21.9 DVT prophylaxis Z29.9 (1) Atrial fibrillation Atrial fibrillation type: unspecified Qualified Code(s): I48.91 - Unspecified atrial fibrillation (2) Headache Headache chronicity pattern: unspecified pattern Headache type: unspecified Intractability: not intractable Qualified Code(s): R51.9 - Headache, unspecified
[2020-01-21] MEDS ORDERED: lisinopril 10 MG TAB PO STA (15:30)
[2020-01-21 16:08] LABS: Thyroid Stimulating Hormone 2.2 uIu/ml (0.300-4.500)
[2020-01-21] MEDS ORDERED: NITROGLYCERIN SL 0.4 MG/TAB TAB SL PRN (16:14)
[2020-01-21] MEDS ORDERED: hydrALAZINE HCL 20 MG/ML VIAL IV PRN (16:14)
[2020-01-21] MEDS ORDERED: POLYETHYLENE (MIRALAX) 17 GM PACK PO PRN (16:14)
[2020-01-21] MEDS: lisinopril 20 MG TAB PO SCH (17:02)
--- NOTE | 2020-01-21 17:43 | Cardiology Consultation ---
Date of Consultation January 21, 2020 Assessment & Plan (1) Hypertensive urgency: Patient is a complex 74-year-old female with issues as outlined above. Presents now with signs and symptoms of hypertensive urgency with labile blood pressures. Has had difficulties with poor tolerance of amiodarone and paroxysmal atrial fibrillation. Last pacemaker interrogation revealed 50 to 60% rhythm breakthrough with elevated ventricular response when occurring. Plan: Agree with treatments as already ordered. We will add amlodipine to current regimen at 5 mg this evening and in a.m. With goals better blood pressure control Stop amiodarone Have discussed in the past AV junction ablation I feel this is appropriate to perform this admission once blood pressure controlled tentatively for Sunday. Discussed with patient and daughter will still require medications for hypertension and chronic coronary artery disease. However this will allow discontinuation of amiodarone and possible reduction in beta-brooks (2) Paroxysmal atrial fibrillation with rapid ventricular response: (3) Coronary artery disease of bypass graft of [place] heart with stable angina pectoris: (4) Valvular heart disease: History of Present Illness Reason for Consultation: Hypertensive urgency, paroxysmal atrial fibrillation Requesting Physician: Dr. Gutierrez Attending Physician: Jose Gutierrez MD History of Present Illness Patient is a complex 74-year-old female with ongoing issues that include 1. Paroxysmal atrial fibrillation with rapid response poorly tolerated status post synchronized electrical cardioversion on 12/12/2019, dual-chamber, left bundle branch block pacemaker insertion 12/16/2019, [employer] [place] XT DR PRETTY [id number] Maintaining sinus rhythm with amiodarone therapy there with frequent breakthrough arrhythmias by pacer device interrogation and poor amiodarone tolerance 2. Atherosclerotic coronary disease status post coronary bypass grafting 2006 for left main coronary artery disease, PRATT graft LAD saphenous vein graft OM1 sequentially to OM 2. Occluded saphenous vein graft by diagnostic cardiac catheterization October 2019 3. Hypertension with labile blood pressure 4. Mild left ventricular dysfunction improved post arrhythmia control 5. Dyslipidemia 6. Mixed valvular disease with very mild aortic stenosis mild aortic insufficiency mild mitral insufficiency moderate tricuspid insufficiency 7. Atherosclerotic carotid disease mild, bilateral 8. Chronic class II congestive heart failure with moderate to severe mitral regurgitation Patient presents this admission having felt poorly for several days. She attributes many of these complaints due to medications specifically amiodarone. However today was nauseated with severe headache and presented to the emergency room where she was found to have significantly elevated blood pressures. She is received 1 dose of labetalol and additional dose of lisinopril this evening. Denies any chest pains has not been aware of any tachypalpitations however pacemaker interrogations have showed frequent breakthroughs of atrial fibrillation. No fevers chills or productive cough. No bleeding difficulties. No melena or hematochezia Allergies Allergy/AdvReac Type Severity Reaction Status Date / Time No Known Drug Allergies Allergy Unknown . Verified 01/21/20 14:20 Home Medications Home Medications Medication Instructions Recorded Confirmed Type nitroglycerin 0.4 mg sublingual 0.4 mg SL UD PRN #25 tab 09/09/18 01/21/20 History tablet timolol maleate 0.25 % eye drops 1 drp OPB BID ml 10/01/18 01/21/20 History Eliquis 5 mg PO BID 03/22/19 01/21/20 History Lumigan 1 drp OPB DAILY@2300 11/02/19 01/21/20 History calcium carbonate-vitamin D3 1 tab PO QAM 11/02/19 01/21/20 History [Calcium 500 + D] furosemide 20 mg PO QAM #30 tab 11/05/19 01/21/20 Rx simvastatin 10 mg PO PM #30 tab 11/05/19 01/21/20 Rx metoprolol succinate 50 mg PO BID #90 tab 12/12/19 01/21/20 Rx aspirin 81 mg PO DAILY 12/14/19 01/21/20 History ondansetron HCl 4 mg tablet 4 mg PO QID PRN #10 tab 12/25/19 01/21/20 Rx pantoprazole 40 mg tablet,delayed 40 mg PO QAM #90 tab 12/26/19 01/21/20 Rx release amiodarone 0 mg PO BID 01/21/20 01/21/20 History lisinopril 0 mg PO QAM 01/21/20 01/21/20 History Patient History Medical History (Updated 01/21/20 @ 18:03 by Skip Lopez MD) Atrial fibrillation on eliquis Carotid artery stenosis CHF (congestive heart failure) Coronary artery disease of bypass graft of [place] heart with stable angina pectoris Glaucoma Valvular heart disease Mild AR, Moderate posteriorly directed MR, Severe TR per 11/02/19 echo Surgical History History of bilateral tubal ligation History of cardiac cath X 2 (NO STENTS, MOST RECENT 10/2019) History of cataract surgery RT/LEFT History of colonoscopy History of coronary artery bypass graft 2 VESSELS REPAIRED/13 YEARS AGO AT [facility] Family History Mother Heart disease Hypertension Father Heart disease Hypertension Denies family history of Ovarian cancer Prostate cancer Myocardial infarction Breast cancer Colorectal cancer Social History Smoking Status: Never smoker Second Hand Exposure: No; Do You Dip or Chew Tobacco: No; Tobacco Cessation Education Requested by Patient: No Hx Alcohol Use: No Hx Substance Use: No Preferred Language: Scottish Communication Ability: Effective Sound Mixer Required: No Beliefs That Will Affect Care: None marital status: Current Living Situation: Family Current Living Situation Comment: son lives with her current occupational status: retired Feels Safe at Home: Yes Dental Care, Regularly: Yes Seatbelt Use: always Assistive Devices: None Review of Systems Review of Systems: All systems reviewed & are unremarkable except as noted in HPI & below Physical Exam Constitutional: WD/WN, vitals as above Uncomfortable appearing Eyes: PERRL, conjunctivae normal, anicteric sclerae ENMT: external ear and nose normal, oropharynx normal Neck: trachea midline, no thyromegaly Respiratory: normal respiratory effort, lungs clear to auscultation Cardiovascular: Rate/Rhythm: regular rate and regular rhythm Heart Sounds: normal S1, normal S2 and + murmur (Grade 2/6 systolic, no diastolic); no gallop Palpation: normal PMI Vessels: normal carotid upstroke and radial pulses present; no JVD and no carotid bruit Extremities: no edema Chest (Breasts): Chest: + pacemaker Gastrointestinal (Abdomen): normal bowel sounds, soft, nontender, no hepatosplenomegaly Musculoskeletal: no cyanosis or clubbing, extremities motor strength 5/5 Skin: no rashes, warm and dry Neurologic: PERRL, EOMI, accommodation nl, no face palsy, no dysarthria Psychiatric: A+Ox3, euthymic affect Results & Data ([facility]) Vital Signs (Past 12 Hours) Vital Signs Temp Pulse Pulse Resp BP BP Pulse Ox 01/21/20 17:29 61 179/80 H 01/21/20 16:28 36.8 C 66 20 188/75 H 97 01/21/20 16:14 36.8 C 66 20 188/75 H 97 01/21/20 15:15 65 21 170/73 H 98 01/21/20 15:00 62 19 173/82 H 99 01/21/20 14:45 62 20 167/75 H 98 01/21/20 14:35 66 20 187/85 H 98 01/21/20 14:30 66 16 202/89 H 98 01/21/20 14:19 62 64 16 198/92 H 198/92 H 97 01/21/20 13:03 61 20 186/91 H 98 01/21/20 13:00 60 18 186/91 H 98 01/21/20 12:58 97 01/21/20 12:31 60 21 188/77 H 98 01/21/20 12:30 60 17 98 01/21/20 12:27 60 18 98 01/21/20 12:00 60 19 190/85 H 98 01/21/20 11:45 37.1 C 77 16 210/92 H 97 Pulse Ox 01/21/20 17:29 01/21/20 16:28 01/21/20 16:14 96 01/21/20 15:15 01/21/20 15:00 01/21/20 14:45 01/21/20 14:35 01/21/20 14:30 01/21/20 14:19 01/21/20 13:03 01/21/20 13:00 01/21/20 12:58 01/21/20 12:31 01/21/20 12:30 01/21/20 12:27 01/21/20 12:00 01/21/20 11:45 Laboratory Results Laboratory Results - last 24 hr 01/21/20 01/21/20 01/21/20 12:10 12:10 12:10 WBC 6.99 RBC 4.07 L Hgb 11.3 L Hct 35.1 L MCV 86.2 MCH 27.8 MCHC 32.2 RDW Std Deviation 46.5 H RDW Coeff of Alyssa 14.7 H Plt Count 266 MPV 11.5 H Immature Gran % (Auto) 0.1 Neut % (Auto) 76.4 Lymph % (Auto) 14.0 [place] % (Auto) 7.4 Eos % (Auto) 1.7 Baso % (Auto) 0.4 Neut # (Auto) 5.33 Lymph # (Auto) 0.98 L [place] # (Auto) 0.52 Eos # (Auto) 0.12 Baso # (Auto) 0.03 Immature Gran # (Auto) 0.01 PT 11.1 INR 1.1 APTT 31.3 H PTT Ratio 1.1 Sodium 139 Potassium 3.5 Chloride 105 Carbon Dioxide 29 Anion Gap 5.0 BUN 20 H Creatinine 0.97 Est Cr Clr Drug Dosing 43.9 Est GFR ( Amer) 66.7 Est GFR (Non-Af Amer) 57.5 BUN/Creatinine Ratio 20.4 H Glucose 97 Calcium 9.3 Total Bilirubin 0.7 AST 21 ALT 26 Alkaline Phosphatase 98 Troponin I 0.061 H* Total Protein 7.5 Albumin 3.6 Globulin 3.9 Albumin/Globulin Ratio 0.9 Lipase 134 TSH 2.200 Diagnostic Findings Cardiac catheterization 11/03/2019 Severe [place] vessel coronary disease with critical ostial left main stenosis, 90%. Patent PRATT graft to the LAD without anastomosis compromise. Occluded saphenous vein graft to OM1, OM 2. Right dominant coronary anatomy. Left anterior descending: Type III in distribution. It gives rise to a septal branch and 2 small diagonals in its midportion. The proximal vessel has a long area of diffuse disease narrowing of a 70 to 80%. The distal vessel fills well via antegrade flow and via left internal mammary artery graft. Ramus intermedius: Small vessel. Left circumflex: Large but nondominant vessel consisting of a large bifurcating obtuse marginal and to moderately large posterior lateral branches along the AV groove. The left circumflex has a shelflike 50 to 60% stenosis at its origin, a 60% narrowing in the proximal obtuse marginal, and an 80% narrowing in the inferior subbranch of the obtuse marginal. The sequential graft from the superior branch to the inferior branch remains patent. Right coronary artery: Dominant vessel consisting of a long posterior descending artery and a single posterior ventricular branch. There are moderate luminal irregularities in the right coronary artery. Left ventricular angiography: There is focal hypokinesis of the inferior apex with mild diffuse LV dysfunction other segments EF 40 to 45% with moderate mitral insufficiency EKG 01/21/2020: Atrial paced rhythm
[2020-01-21] MEDS ORDERED: amLODIPine BESYLATE 5 MG TAB PO ONE (17:51)
[2020-01-21] MEDS: ONDANSETRON INJ 2 MG/ML 2 ML VIAL IV PRN (19:46)
[2020-01-21] MEDS: ACETAMINOPHEN 325 MG TAB PO PRN ×2 (19:46→23:10)
[2020-01-21] MEDS: TIMOLOL GFS 0.5% OPH SOLN 74 DROPS/5 ML BTL OPB SCH (20:26)
[2020-01-21] MEDS: APIXABAN 5 MG TABLET PO SCH (20:28)
[2020-01-21] MEDS: SIMVASTATIN 10 MG TAB PO SCH (20:28)
[2020-01-21] MEDS: METOPROLOL SUCC 50MG EXT REL TAB PO SCH (20:28)
[2020-01-21] MEDS: BIMATOPROST 0.01% OP SOLN 2.5 ML BTL OP SCH (23:11)
[2020-01-22 05:52] LABS: Hematocrit (blood only) 34.9 % (37-47); Hemoglobin 11.3 g/dL (12.0-16.0); Mean Corpuscular Hemoglobin 27.8 pg (25-34); Mean Corpuscular Hgb Conc 32.4 g/dL (32-36); Mean Corpuscular Volume 85.7 fL (80-100); Platelet Count 272 K/uL (130-400); RDW Coefficient of Variation 15.1 % (11.5-14.5); RDW Standard Deviation 47.6 fL (36.4-46.3); Red Blood Count 4.07 M/uL (4.2-5.4); White Blood Count 6.16 K/uL (4.8-10.8)
[2020-01-22 06:21] LABS: BUN Creatinine Ratio 21.5 (10-20); Calcium 9.2 mg/dl (8.5-10.1); Creatinine Clr Calc Pharmacy 45.3 ml/min; Est GFR (African American) 71.1; Est GFR (Non-African American) 61.3; Magnesium 2.1 mg/dl (1.8-2.4); Potassium 3.8 mmol/L (3.5-5.1)
--- NOTE | 2020-01-22 06:26 | Electrocardiogram Report ---
Test Reason : Blood Pressure : / mmHG Vent. Rate : 065 BPM Atrial Rate : 065 BPM P-R Int : 246 ms QRS Dur : 106 ms QT Int : 412 ms P-R-T Axes : 043 -45 035 degrees QTc Int : 428 ms Atrial-paced rhythm with prolonged AV conduction Left anterior fascicular block Minimal voltage criteria for LVH, may be normal variant Septal infarct (cited on or before 15-DEC-2019) Abnormal ECG When compared with ECG of 16-DEC-2019 16:11, Nonspecific T wave abnormality no longer evident in Lateral leads Confirmed by Antolin Valadez ([id number]) on 01/22/2020 6:25:45 AM Referred By: Confirmed By:Antolin Valadez
[2020-01-22] MEDS: amLODIPine BESYLATE 5 MG TAB PO SCH (07:44)
[2020-01-22] MEDS: lisinopril 20 MG TAB PO SCH (07:44)
[2020-01-22] MEDS: CALCIUM 600MG + VIT D 400 IU TAB PO SCH (07:45)
[2020-01-22] MEDS: ASPIRIN 81 MG ECTAB PO SCH (07:45)
[2020-01-22] MEDS: FUROSEMIDE 20 MG TAB PO SCH (07:45)
[2020-01-22] MEDS: METOPROLOL SUCC 50MG EXT REL TAB PO SCH ×2 (07:45→20:59)
[2020-01-22] MEDS: ACETAMINOPHEN 325 MG TAB PO PRN (07:46)
[2020-01-22] MEDS: APIXABAN 5 MG TABLET PO SCH ×2 (07:46→20:58)
[2020-01-22] MEDS ORDERED: AMIODARONE 200 MG TAB PO SCH (09:00)
[2020-01-22] MEDS: ONDANSETRON INJ 2 MG/ML 2 ML VIAL IV PRN (10:19)
[2020-01-22] MEDS: TIMOLOL GFS 0.5% OPH SOLN 74 DROPS/5 ML BTL OPB SCH ×2 (10:19→21:00)
[2020-01-22] MEDS: PANTOprazole 40 MG TAB PO SCH (10:19)
--- NOTE | 2020-01-22 12:00 | Cardiology Progress Note ---
Date of Service January 22, 2020 Assessment & Plan (1) Hypertensive urgency: Patient is a complex 74-year-old female with issues as outlined above. Presents now with signs and symptoms of hypertensive urgency with labile blood pressures. Has had difficulties with poor tolerance of amiodarone and paroxysmal atrial fibrillation. Last pacemaker interrogation revealed 50 to 60% rhythm breakthrough with elevated ventricular response when occurring. Initial troponin mildly elevated secondary to hypertensive urgency Plan: Agree with treatments as already ordered. We will add amlodipine to current regimen at 5 mg this evening and in a.m. With goals better blood pressure control Stop amiodarone Have discussed in the past AV junction ablation I feel this is appropriate to perform this admission once blood pressure controlled tentatively for Sunday. Discussed with patient and daughter will still require medications for hypertension and chronic coronary artery disease. However this will allow discontinuation of amiodarone and possible reduction in beta-brooks Blood pressure has improved this morning. No acute renal decline. Continue current therapies as ordered Anticipate AV junction ablation as above in a.m., n.p.o. after midnight (2) Paroxysmal atrial fibrillation with rapid ventricular response: (3) Coronary artery disease of bypass graft of [place] heart with stable angina pectoris: (4) Valvular heart disease: Admission and Anticipated Discharge Date Admission Date: January 21, 2020 Subjective Patient seen and examined, chart, medications, telemetry reviewed. Patient still complaining of headache and nausea, anorexia. Has been able to take medications. Blood pressures trending towards better control after IV hydralazine this morning and upward titration of p.o. medication No arrhythmias on telemetry overnight Pacemaker interrogation this morning continues to demonstrate paroxysmal atrial fibrillation but improved levels over the past month. Still with over 8 hours atrial fibrillation Physical Exam Constitutional: WD/WN, vitals as above Eyes: PERRL, conjunctivae normal, anicteric sclerae ENMT: external ear and nose normal, oropharynx normal Neck: trachea midline, no thyromegaly Respiratory: normal respiratory effort, lungs clear to auscultation Cardiovascular: Rate/Rhythm: regular rate and regular rhythm Heart Sounds: normal S1, normal S2 and + murmur (Grade 2/6 systolic, no diastolic); no gallop Palpation: normal PMI Vessels: normal carotid upstroke and radial pulses present; no JVD and no carotid bruit Extremities: no edema Chest (Breasts): Chest: + pacemaker Gastrointestinal (Abdomen): normal bowel sounds, soft, nontender, no hepatosplenomegaly Musculoskeletal: no cyanosis or clubbing, extremities motor strength 5/5 Skin: no rashes, warm and dry Neurologic: PERRL, EOMI, accommodation nl, no face palsy, no dysarthria Psychiatric: A+Ox3, euthymic affect Results & Data ([facility]) Vital Signs (Past 12 Hours) Vital Signs Temp Pulse Resp BP BP Pulse Ox 01/22/20 11:36 36.3 C L 61 18 122/70 97 01/22/20 09:30 131/77 01/22/20 07:32 36.7 C 57 L 18 182/76 H 97 01/22/20 04:13 36.3 C L 61 18 148/75 H 97 Laboratory Results Laboratory Results - last 24 hr 01/21/20 01/21/20 01/21/20 12:10 12:10 12:10 WBC 6.99 RBC 4.07 L Hgb 11.3 L Hct 35.1 L MCV 86.2 MCH 27.8 MCHC 32.2 RDW Std Deviation 46.5 H RDW Coeff of Alyssa 14.7 H Plt Count 266 MPV 11.5 H Immature Gran % (Auto) 0.1 Neut % (Auto) 76.4 Lymph % (Auto) 14.0 Leon % (Auto) 7.4 Eos % (Auto) 1.7 Baso % (Auto) 0.4 Neut # (Auto) 5.33 Lymph # (Auto) 0.98 L [place] # (Auto) 0.52 Eos # (Auto) 0.12 Baso # (Auto) 0.03 Immature Gran # (Auto) 0.01 PT 11.1 INR 1.1 APTT 31.3 H PTT Ratio 1.1 Sodium 139 Potassium 3.5 Chloride 105 Carbon Dioxide 29 Anion Gap 5.0 BUN 20 H Creatinine 0.97 Est Cr Clr Drug Dosing 43.9 Est GFR ( Amer) 66.7 Est GFR (Non-Af Amer) 57.5 BUN/Creatinine Ratio 20.4 H Glucose 97 Calcium 9.3 Magnesium Total Bilirubin 0.7 AST 21 ALT 26 Alkaline Phosphatase 98 Troponin I 0.061 H* Total Protein 7.5 Albumin 3.6 Globulin 3.9 Albumin/Globulin Ratio 0.9 Lipase 134 TSH 2.200 01/22/20 01/22/20 05:35 05:35 WBC Pending RBC Pending Hgb Pending Hct Pending MCV Pending MCH Pending MCHC Pending RDW Std Deviation RDW Coeff of Alyssa Plt Count Pending MPV Immature Gran % (Auto) Neut % (Auto) Lymph % (Auto) Leon % (Auto) Eos % (Auto) Baso % (Auto) Neut # (Auto) Lymph # (Auto) Leon # (Auto) Eos # (Auto) Baso # (Auto) Immature Gran # (Auto) PT INR APTT PTT Ratio Sodium 139 Potassium 3.8 Chloride 106 Carbon Dioxide 29 Anion Gap 4.0 BUN 20 H Creatinine 0.92 Est Cr Clr Drug Dosing 45.3 Est GFR ( Amer) 71.1 Est GFR (Non-Af Amer) 61.3 BUN/Creatinine Ratio 21.5 H Glucose 86 Calcium 9.2 Magnesium 2.1 Total Bilirubin AST ALT Alkaline Phosphatase Troponin I Total Protein Albumin Globulin Albumin/Globulin Ratio Lipase TSH
[2020-01-22] MEDS ORDERED: KETOROLAC TROMETHAMINE 15 MG/ML VIAL IV ONE (14:50)
[2020-01-22] MEDS: SIMVASTATIN 10 MG TAB PO SCH (20:59)
--- NOTE | 2020-01-22 21:50 | Hospitalist Progress Note ---
Date of Service January 22, 2020 Assessment & Plan (1) Hypertensive urgency: Continue her usual outpatient medications of amiodarone 200 mg p.o. daily, Lasix 20 mg p.o. daily. We will increase her lisinopril back up to 20 mg p.o. daily (reduced during last admission) Hydralazine IV 5mg Q4H PRN Consult her dental laboratory manager Dr Lopez: appreciate input of cardio. BP is now better controlled. (2) Headache: Not acute or related to current increased BP. Reportedly started last admission. ?related to amiodarone, pantoprazole, pacemaker insertion, stopping her usual tums Acetaminophen PRN. Headache still present despite holding amiodarone. Amiodarone though has long half life. Imaging of head thorugh CT scan is negative. Not improving with tylenol. will give one dose of ketorolac, will not repeat as patient is on anticoagulation Explained to patient that will not repeat dose. She is agreeable and understands risks. (3) Nausea: As above, headache and nausea appear to be interlinked. (4) Atrial fibrillation: Paroxysmal, currently in atrial sensed rhythm (5) Valvular heart disease: (6) Coronary artery disease of bypass graft of [place] heart with stable angina pectoris: Continue ASA, Eliquis, lisinopril, metoprolol, simvastatin (7) GERD (gastroesophageal reflux disease): Continue pantoprazole 40mg PO daily Previously taking excessive tums for years prior to last admission. (8) DVT prophylaxis: Continue her usual Eliquis 5mg PO BID Admission and Anticipated Discharge Date Admission Date: January 22, 2020 Subjective 74 yo female reports she continues to have a headache. Review of Systems Review of Systems: All systems reviewed & are unremarkable except as noted in HPI & below Physical Exam Physical Exam: Constitutional: WD/WN, vitals as above Eyes: PERRL, conjunctivae normal, anicteric sclerae ENMT: external ear and nose normal, oropharynx normal Neck: trachea midline, no thyromegaly Respiratory: normal respiratory effort, lungs clear to auscultation Cardiovascular: \Rate/Rhythm: regular rate and regular rhythm Heart Sounds: normal S1, normal S2 and + murmur (Grade 2/6 systolic, no diastolic); no gallop Palpation: normal PMI Vessels: normal carotid upstroke and radial pulses present; no JVD and no carotid bruit Extremities: no edema Chest (Breasts): Chest: + pacemaker Gastrointestinal (Abdomen): normal bowel sounds, soft, nontender, no hepatosplenomegaly Musculoskeletal: no cyanosis or clubbing, extremities motor strength 5/5 Skin: no rashes, warm and dry Neurologic: PERRL, EOMI, accommodation nl, no face palsy, no dysarthria Psychiatric: A+Ox3, euthymic affect Results & Data Results & Data ([facility]) Vital Signs (Past 12 Hours) Vital Signs Temp Pulse Pulse Resp BP BP Pulse Ox 01/22/20 19:12 36.3 C L 68 20 137/76 98 01/22/20 15:51 60 01/22/20 15:37 36.8 C 61 17 138/72 98 01/22/20 11:36 36.3 C L 61 18 122/70 97 PG Care Time/CCT Total # of Minutes Spent Total Time Spent with Patient: Total time spent is greater than 50% in coordination of care (as documented) at patient's floor/unit and/or counseling patient: Coding Level of Care Code 93068 Subseq Hosp Care Lvl 3 Diagnoses Hypertensive urgency I16.0 Headache R51.9 Headache chronicity pattern: unspecified pattern Headache type: unspecified Intractability: not intractable Nausea R11.0 Atrial fibrillation I48.91 Atrial fibrillation type: unspecified Valvular heart disease I38 Coronary artery disease of bypass graft of [place] heart with stable angina pectoris I25.708 GERD (gastroesophageal reflux disease) K21.9 DVT prophylaxis Z29.9 Time Spent (min) 35 (1) Atrial fibrillation Atrial fibrillation type: unspecified Qualified Code(s): I48.91 - Unspecified atrial fibrillation (2) Headache Headache chronicity pattern: unspecified pattern Headache type: unspecified Intractability: not intractable Qualified Code(s): R51.9 - Headache, unspecified
[2020-01-23] MEDS: BIMATOPROST 0.01% OP SOLN 2.5 ML BTL OP SCH ×2 (01:49→23:12)
[2020-01-23] MEDS: TIMOLOL GFS 0.5% OPH SOLN 74 DROPS/5 ML BTL OPB SCH ×2 (08:26→20:22)
[2020-01-23] MEDS: PANTOprazole 40 MG TAB PO SCH (08:30)
[2020-01-23] MEDS: CALCIUM 600MG + VIT D 400 IU TAB PO SCH (08:30)
[2020-01-23] MEDS: amLODIPine BESYLATE 5 MG TAB PO SCH (08:30)
[2020-01-23] MEDS: METOPROLOL SUCC 50MG EXT REL TAB PO SCH ×2 (08:30→20:22)
[2020-01-23] MEDS: FUROSEMIDE 20 MG TAB PO SCH (08:30)
[2020-01-23] MEDS: ASPIRIN 81 MG ECTAB PO SCH (10:05)
[2020-01-23] MEDS: APIXABAN 5 MG TABLET PO SCH ×2 (10:05→20:22)
--- NOTE | 2020-01-23 12:34 | Cardiology Progress Note ---
Date of Service January 23, 2020 Assessment & Plan (1) Hypertensive urgency: Patient is a complex 74-year-old female with issues as outlined above. Presents now with signs and symptoms of hypertensive urgency with labile blood pressures. Has had difficulties with poor tolerance of amiodarone and paroxysmal atrial fibrillation. Initial troponin mildly elevated secondary to hypertensive urgency Plan: Agree with treatments as already ordered. We will add amlodipine to current regimen at 5 mg this evening and in a.m. With goals better blood pressure control Stop amiodarone Have discussed in the past AV junction ablation I feel this is appropriate to perform this admission once blood pressure controlled tentatively for Sunday. Discussed with patient and daughter will still require medications for hypertension and chronic coronary artery disease. However this will allow dis continuation of amiodarone and possible reduction in beta-brooks Blood pressure has improved this morning. No acute renal decline. 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 Still with intermittent headache but otherwise improving. Blood pressure is much better controlled slightly elevated this morning. No racing heart or palpitations Telemetry reveals no arrhythmias Physical Exam Constitutional: WD/WN, vitals as above Eyes: PERRL, conjunctivae normal, anicteric sclerae ENMT: external ear and nose normal, oropharynx normal Neck: trachea midline, no thyromegaly Respiratory: normal respiratory effort, lungs clear to auscultation Cardiovascular: Rate/Rhythm: regular rate and regular rhythm Heart Sounds: normal S1, normal S2 and + murmur (Grade 2/6 systolic, no diastolic); no gallop Palpation: normal PMI Vessels: normal carotid upstroke and radial pulses present; no JVD and no carotid bruit Extremities: no edema Chest (Breasts): Chest: + pacemaker Gastrointestinal (Abdomen): normal bowel sounds, soft, nontender, no hepatosplenomegaly Musculoskeletal: no cyanosis or clubbing, extremities motor strength 5/5 Skin: no rashes, warm and dry Neurologic: PERRL, EOMI, accommodation nl, no face palsy, no dysarthria Psychiatric: A+Ox3, euthymic affect Results & Data ([facility]) Vital Signs (Past 12 Hours) Vital Signs Temp Pulse Pulse Resp BP BP Pulse Ox 01/23/20 11:52 36.6 C 61 18 162/73 H 96 01/23/20 08:39 36.5 C 66 18 128/73 96 01/23/20 07:24 61 01/23/20 03:30 36.5 C 60 16 116/69 98
--- NOTE | 2020-01-23 13:59 | Pre Anesthesia Assessment ---
Date of Service January 23, 2020 Pre Sedation Assessment Vital Signs Temp Pulse Pulse Resp BP BP Pulse Ox 01/23/20 11:52 36.6 C 61 18 162/73 H 96 01/23/20 08:39 36.5 C 66 18 128/73 96 01/23/20 07:24 61 01/23/20 03:30 36.5 C 60 16 116/69 98 01/22/20 23:19 36.6 C 60 18 111/60 97 01/22/20 19:12 36.3 C L 68 20 137/76 98 01/22/20 15:51 60 01/22/20 15:37 36.8 C 61 17 138/72 98 Cardiovascular + bradycardic Respiratory normal respiratory effort, lungs clear to auscultation Pre-Sedation Airway Assessment Smoking Status: Never smoker Hx Sleep Apnea: No Hx Difficult Intubation: No Short, Thick Neck: No Oral Cavity: + Dentures Mallampati Class: II ASA: ASA3 NPO Status Date of Last Intake of Fluids: 01/22/20 Time of Last Intake of Fluids: 20:00 Date of Last Intake of Solid Food: 01/22/20 Time of Last Intake of Solid Foods: 20:00 Procedure Planning Contraindications for Sedation: none Current Medications Reviewed: Yes Notes The planned sedation has been discussed with the patient. Informed Consent was obtained. I have identified the patient, determined the appropriateness of sedation and have assessed the patient immediately prior to the procedure. All medicine(s) and interventions are by my order.
--- NOTE | 2020-01-23 13:59 | History & Physical Bridge Note ---
Date of Service January 23, 2020 History & Physical Bridge Note I have examined the patient, reviewed the History & Physical and in the interval since the performance of the History & Physical I have noted the following changes of clinical significance: Pt with pAF with RVR refractory to amiodarone and AVN blockers. Pt is for an AVN ablation. consents signed
[2020-01-23] MEDS ORDERED: fentaNYL citrate 100 MCG/2 ML VIAL ONE (14:16)
[2020-01-23] MEDS ORDERED: MIDAZOLAM HCL 5 MG/ML 1 ML VIAL ONE (14:16)
--- NOTE | 2020-01-23 15:07 | Post Anesthesia Assessment ---
Date of Service January 23, 2020 Post Sedation Assessment Vital Signs Temp Pulse Pulse Resp BP BP Pulse Ox 01/23/20 11:52 36.6 C 61 18 162/73 H 96 01/23/20 08:39 36.5 C 66 18 128/73 96 01/23/20 07:24 61 01/23/20 03:30 36.5 C 60 16 116/69 98 01/22/20 23:19 36.6 C 60 18 111/60 97 01/22/20 19:12 36.3 C L 68 20 137/76 98 01/22/20 15:51 60 01/22/20 15:37 36.8 C 61 17 138/72 98 Recovery Score Activity: Moves 4 extremities Respiration: Deep Breath/Cough Circulation: +/-20% PreAnes Value Consciousness: Fully Awake Oxygen Saturation: > 92% On Room Air Discharge Sedation Level of Care: Fast Track Phase II Post Sedation Plan On clinical assessment, the patient appears to have tolerated the sedation without complications. Patient is recovering as anticipated. Patient will continue to be monitored by nursing and may be discharged when sedation discharge criteria are met per below protocol. Upon Completions of procedure up to 15 minutes continue every 5 minute vital signs and the P.A.R. score; then discharge to a Phase I or Fast Track to Phase II per the following guidelines: * Discharge Patient to appropriate Phase II area if PAR is 8 or greater or return to pre- procedure baseline. The post - procedure orders will be as directed. * If PAR score is less than 8 or not return to pre-procedure baseline then patient will follow Phase I monitoring till PAR is reached for Phase II. The Phase I may be done in procedure room or may call to secure a Phase I area. * If naloxone or flumazenil are used for reversal, hold in Phase I for continued monitoring from when last reversal dose was given for a minimum of 60 minutes or longer pending the nurse and/or physician discretion of patient condition before discharge to Phase II. Please call the Sedation Physician to re-evaluate and complete post-note for discharge to Phase II area. Do NOT discharge from procedure sedation or Phase 1 until post- sedation evaluation note is complete by procedure /sedation MD Sedation Discharge Instructions to be given to the patient at discharge to home.
--- NOTE | 2020-01-23 15:08 | Operative Report ---
Post Operative Report Pre & Post Diagnosis Pre: pAF with RVR Post: CHB Operation Date: 01/23/20 14:00 <No data on this case meets the specified criteria> I identified the patient and participated in the time-out.: Yes Procedure Operation Date: 01/23/20 14:00 Actual Procedures p AV Node Ablation - Nallely Wolff DO s Interrogation of Pacer - Nallely Wolff DO Surgeon Nallely Wolff DO Porcelain Mixer none Estimated Blood Loss 5 Findings Consistent with Post-Op Diagnosis Specimens none Description of Procedure see official report I attest to the content of the Intraoperative Record and any orders documented therein. Any exceptions are noted below.
[2020-01-23] MEDS: SIMVASTATIN 10 MG TAB PO SCH (20:22)
--- NOTE | 2020-01-23 22:51 | Hospitalist Progress Note ---
Date of Service January 23, 2020 Assessment & Plan (1) Hypertensive urgency: Continue her usual outpatient medications of amiodarone 200 mg p.o. daily, Lasix 20 mg p.o. daily. We will increase her lisinopril back up to 20 mg p.o. daily (reduced during last admission) Hydralazine IV 5mg Q4H PRN Consult her director power Dr Lopez: appreciate input of cardio. BP is now better controlled. S/P ablation. (2) Headache: Not acute or related to current increased BP. Reportedly started last admission. ?related to amiodarone, pantoprazole, pacemaker insertion, stopping her usual tums Acetaminophen PRN. Headache still present despite holding amiodarone. Amiodarone though has long half life. Imaging of head thorugh CT scan is negative. resolved with one dose of NSAID. (3) Nausea: As above, headache and nausea appear to be interlinked. (4) Atrial fibrillation: Paroxysmal, currently in atrial sensed rhythm (5) Valvular heart disease: (6) Coronary artery disease of bypass graft of [place] heart with stable angina pectoris: Continue ASA, Eliquis, lisinopril, metoprolol, simvastatin (7) GERD (gastroesophageal reflux disease): Continue pantoprazole 40mg PO daily Previously taking excessive tums for years prior to last admission. (8) DVT prophylaxis: Continue her usual Eliquis 5mg PO BID Admission and Anticipated Discharge Date Admission Date: January 22, 2020 Subjective Patient reports feeling better, her headache is better. She has no new complaints today. Review of Systems Review of Systems: All systems reviewed & are unremarkable except as noted in HPI & below Physical Exam Physical Exam: Constitutional: WD/WN, vitals as above Eyes: PERRL, conjunctivae normal, anicteric sclerae ENMT: external ear and nose normal, oropharynx normal Neck: trachea midline, no thyromegaly Respiratory: normal respiratory effort, lungs clear to auscultation Cardiovascular: \Rate/Rhythm: regular rate and regular rhythm Heart Sounds: normal S1, normal S2 and + murmur (Grade 2/6 systolic, no diastolic); no gallop Palpation: normal PMI Vessels: normal carotid upstroke and radial pulses present; no JVD and no carotid bruit Extremities: no edema Chest (Breasts): Chest: + pacemaker Gastrointestinal (Abdomen): normal bowel sounds, soft, nontender, no hepatosplenomegaly Musculoskeletal: no cyanosis or clubbing, extremities motor strength 5/5 Skin: no rashes, warm and dry Neurologic: PERRL, EOMI, accommodation nl, no face palsy, no dysarthria Psychiatric: A+Ox3, euthymic affect Results & Data Results & Data ([facility]) Vital Signs (Past 12 Hours) Vital Signs Temp Pulse Pulse Resp BP BP Pulse Ox 01/23/20 19:36 36.5 C 61 16 103/61 95 01/23/20 17:50 60 18 90/56 L 96 01/23/20 17:16 60 18 103/65 96 01/23/20 16:50 60 18 106/68 95 01/23/20 16:20 60 18 112/72 94 01/23/20 15:50 60 18 125/77 97 01/23/20 15:47 62 01/23/20 15:35 36.8 C 61 18 136/77 96 01/23/20 11:52 36.6 C 61 18 162/73 H 96 PG Care Time/CCT Total # of Minutes Spent Total Time Spent with Patient: Total time spent is greater than 50% in coordination of care (as documented) at patient's floor/unit and/or counseling patient: Coding Level of Care Code 04854 Subseq Hosp Care Lvl 2 Diagnoses Hypertensive urgency I16.0 Headache R51.9 Headache chronicity pattern: unspecified pattern Headache type: unspecified Intractability: not intractable Nausea R11.0 Atrial fibrillation I48.91 Atrial fibrillation type: unspecified Valvular heart disease I38 Coronary artery disease of bypass graft of [place] heart with stable angina pectoris I25.708 GERD (gastroesophageal reflux disease) K21.9 DVT prophylaxis Z29.9 Time Spent (min) 25 (1) Atrial fibrillation Atrial fibrillation type: unspecified Qualified Code(s): I48.91 - Unspecified atrial fibrillation (2) Headache Headache chronicity pattern: unspecified pattern Headache type: unspecified Intractability: not intractable Qualified Code(s): R51.9 - Headache, unspecified
[2020-01-24] MEDS: TIMOLOL GFS 0.5% OPH SOLN 74 DROPS/5 ML BTL OPB SCH (08:43)
[2020-01-24] MEDS: FUROSEMIDE 20 MG TAB PO SCH (08:44)
[2020-01-24] MEDS: amLODIPine BESYLATE 5 MG TAB PO SCH (08:44)
[2020-01-24] MEDS: lisinopril 20 MG TAB PO SCH (08:44)
[2020-01-24] MEDS: APIXABAN 5 MG TABLET PO SCH (08:44)
[2020-01-24] MEDS: PANTOprazole 40 MG TAB PO SCH (08:44)
[2020-01-24] MEDS: ASPIRIN 81 MG ECTAB PO SCH (08:44)
[2020-01-24] MEDS: CALCIUM 600MG + VIT D 400 IU TAB PO SCH (08:44)
[2020-01-24] MEDS: METOPROLOL SUCC 50MG EXT REL TAB PO SCH (08:44)
[2020-01-24 09:06] LABS: Creatinine Clr Calc Pharmacy 35.8 ml/min; Est GFR (African American) 53.7; Est GFR (Non-African American) 46.3
--- NOTE | 2020-01-24 14:54 | Cardiology Progress Note ---
Date of Service January 24, 2020 Assessment & Plan (1) Hypertensive urgency: Patient is a complex 74-year-old female with issues as outlined above. Presents now with signs and symptoms of hypertensive urgency with labile blood pressures. Has had difficulties with poor tolerance of amiodarone and paroxysmal atrial fibrillation. Status post AV eunice ablation which she tolerated well. Now consistently ventricularly paced with underlying atrial fibrillation. Amiodarone obviously discontinued. She will be continued on outpatient anticoagulation regimen. Blood pressure is now well controlled and recommend continuing current medications. Okay for discharge from a cardiac standpoint. Patient rescheduled to follow-up in our office in the next few days, recommend keeping that appointment. (2) Paroxysmal atrial fibrillation with rapid ventricular response: (3) Coronary artery disease of bypass graft of [place] heart with stable angina pectoris: (4) Valvular heart disease: Echocardiogram demonstrates improved mitral and tricuspid insufficiency reduce pulmonary pressures in comparison to prior study Admission and Anticipated Discharge Date Admission Date: January 22, 2020 Subjective Patient seen and examined, chart reviewed. Daughter at bedside. Patient states that she feels well and is without complaint. She is anxious for discharge. She denies any chest pain, shortness of breath, palpitations, lightheadedness, dizziness or syncope. There is no significant discomfort at the cath site. Telemetry reviewed ventricular paced rhythm. Review of Systems Review of Systems: All systems reviewed & are unremarkable except as noted in HPI & below Physical Exam Physical Exam: General: Awake, alert and oriented x 3. No acute distress. HEENT: Normocephalic, atraumatic. Pupils equal, round and reactive to light and accommodation. Extraocular muscles are intact. Anicteric sclera. Moist mucous membranes. Neck: No JVD. No bruit. Cardiovascular: Regular. Positive S-4. Normal S-1 and S-2. No S-3. 3/6 mid to late systolic ejection murmur, greatest at the right sternal border, second intercostal space with radiation to the bilateral carotids. No rubs. Pulmonary: Clear to auscultation bilaterally. No rales, rhonchi, or wheezing. Abdomen: Bowel sounds x 4, soft. No rebound, guarding or tenderness. No organomegaly. Extremities: No clubbing, cyanosis or edema. +2 pedal pulses bilaterally. Skin: Warm and dry. Results & Data ([facility]) Vital Signs (Past 12 Hours) Vital Signs Temp Pulse Pulse Resp BP BP Pulse Ox 01/24/20 11:47 36.4 C L 58 L 17 97/62 L 97 01/24/20 11:10 36.5 C 64 16 103/61 128/74 98 01/24/20 08:15 36.5 C 64 16 128/74 98 01/24/20 07:06 60 01/24/20 04:07 36.3 C L 60 16 106/64 96
--- NOTE | 2020-01-25 10:28 | Operative Report (OR) ---
DATE OF OPERATION: 01/22/2020 PREOPERATIVE DIAGNOSES: Tachybrady syndrome, permanent atrial fibrillation with rapid ventricular response refractory to medications. POSTOPERATIVE DIAGNOSIS: Tachybrady syndrome, permanent atrial fibrillation with rapid ventricular response refractory to medications along with a complete heart block. PROCEDURE: AV eunice ablation along with dual chamber permanent pacemaker interrogation and reprogramming. SURGEON: Nallely Wolff DO. ASSISTANTS: None. ANESTHESIA: Monitored conscious sedation administered under my supervision by Chetna Perez. Start time 1421, end time 1501. A total of 3 mg of Versed and 75 mcg of fentanyl. INTRAVENOUS FLUIDS: 274 mL. ANTIBIOTICS: 1 gram of Ancef. BLOOD LOSS: 5 mL. URINE OUTPUT: Not applicable. SPECIMENS: None. FINDINGS: See below. DRAINS: None. INDICATIONS: This is a 74-year-old female with past medical history for tachybrady syndrome in which she underwent a permanent pacemaker earlier in 11/2019, paroxysmal atrial fibrillation diagnosed in 10/2019. She underwent a cardioversion in 11/2017 with recurrent episodes so that since she got the pacemaker and then was put on amiodarone and metoprolol, she remained on Eliquis; however, she has not been tolerating the amiodarone and so was recommended AV eunice ablation. Other past medical history is coronary artery disease with a history of a CABG in 2006, PRATT to LAD, SVG to OM with the sequential graft to OM2. The ischemic cardiomyopathy, ejection fraction 40%, chronic heart failure with reduced ejection fraction, [place] Heart Association class II-III, mild aortic stenosis, mild mitral regurgitation, moderate tricuspid regurgitation, hypertension, hyperlipidemia. The patient was admitted to [facility] with recurrent AFib and rapid ventricular response. She really has not been tolerating the amiodarone, so that is needing to be stopped and she does not tolerate the AFib at all given her underlying advanced coronary artery disease, so she was recommended AV eunice ablation. CONSENT: Consent was obtained prior to the patient going into electrophysiology lab. The patient was informed of risks, benefits and alternative procedure. Risks include but not limited to sudden cardiac , cardiac arrhythmias, cerebrovascular accident, myocardial infarction, injury to the blood vessels, chamber of the heart, bleeding and infection. The patient understood these risks and agreed with procedure as planned. Informed consent was obtained. DESCRIPTION OF THE PROCEDURE: The patient was brought into the electrophysiology lab in fasting state. She was connected to continuous cardiac catheterization technician. Timeout was performed to ensure patient's identity and procedure correctly. The patient received prophylactic antibiotics prior to incision. She was prepped and draped over bilateral groins in normal surgical standard fashion. Monitored conscious sedation was given throughout the procedure for the patient's comfort level. 10 mL of 1% lidocaine were given in the right femoral groin for local anesthesia. Then using the modified Seldinger technique, venous access was obtained through a needle stick in the right femoral vein. The guidewire was inserted without any resistance and an SRO sheath was advanced over the guidewire without any resistance. The guidewire and dilator removed and then the ablation catheter 8 mm DF curved Shustir nonirrigated catheter was advanced into the heart. The dual chamber pacemaker was interrogated and reprogrammed with the following findings: 1. Preprocedure right atrial lead: P waves 2.9 millivolts, impedance 513 ohms, threshold 0.5 volts at 0.4 milliseconds. 2. Left bundle lead 15.8 milliseconds, impedance 665 ohms, threshold 0.75 volts at 0.4 milliseconds. The device was reprogrammed to VVI 30 during the procedure. 3. The ablation catheter was positioned around the His bundle region. The AH was found to be 73 milliseconds, HV was 70 milliseconds. I then gave a series of radiofrequency espinoza at 55 alfonso. I immediately got heart block and VVI pacing in the 30s. I gave 3 espinoza for a minute in duration. Then I pulled the catheter back out of the heart and we did 20 minutes when she still was in complete heart block. Then, the catheter and the sheath were removed from the body and manual compression was used to establish hemostasis. The dual-chamber pacemaker was reprogrammed and was interrogated in the following manner: 1. Right atrial lead: P-wave 3.8 millivolts, impedance 494 ohms, threshold 0.5 volts at 0.4 milliseconds. 2. The left bundle lead had no R-waves, impedance 627 ohms, threshold 0.75 volts at 0.4 milliseconds. The device was reprogrammed back to DDDR 60. IMPRESSION: Successful atrioventricular eunice ablation and dual chamber pacemaker interrogation and reprogramming secondary to refractory atrial fibrillation with medications. PLAN: Monitor patient overnight, 12-lead ECG, chest x-ray. She cannot do any heavy lifting or squatting for 1 week's time. Stop the amiodarone and go back down on the metoprolol to 25 mg daily. She should follow up in our cardiology office as scheduled. I attest to the content of the Intraoperative Record and any orders documented therein. Any exception s are noted below.
--- NOTE | 2020-02-01 22:57 | Discharge Summary ---
Date of Service January 24, 2020 Admission HPI Per Admitting Provider Maribell Reveles is a 74 year old female who presents to the on advice of her general merchandise manager for elevated blood pressure, headache and nausea. Her headache and nausea have been ongoing for last month since starting amiodarone, pantoprazole and having a pacemaker insertion last admission. No recent worsening of her symptoms today however she took her blood pressure at home and systolic > 200 therefore called her cardiology office and was recommended she came to the ER for further workup. She reports her nausea is improved with reduction in amiodarone earlier this month however her headache has stayed much the same. Headache is constant over the right eye, severity 2/10, no radiation, no neck pain on this side. On Jan 04 amiodarone decreased from 200mg BID to daily and metoprolol succinate increased from 50mg to 100mg BID. During her last admission for a. fib RVR in November she underwent pacemaker insertion for tachybrady syndrome with ultimate goal of AV eunice ablation. She feels fatigued when in a. fib, even when rate control hence why a rhythm control strategy was adopted. She has not felt the same fatigue lately and the headache and nausea is something separate that only started during that last hospitalization. In the ER her blood pressure was noted to be significantly elevated. 210/92 and she received hydralazine 10mg IV and labetalol 10mg IV with subsequent improvement systolic < 180. Her general merchandise manager was contacted and advised admission. Principal Diagnosis Hypertensive crisis Discharge Exam Constitutional: WD/WN, vitals as above Eyes: PERRL, conjunctivae normal, anicteric sclerae ENMT: external ear and nose normal, oropharynx normal Neck: trachea midline, no thyromegaly Respiratory: normal respiratory effort, lungs clear to auscultation Cardiovascular: \Rate/Rhythm: regular rate and regular rhythm Heart Sounds: normal S1, normal S2 and + murmur (Grade 2/6 systolic, no diastolic); no gallop Palpation: normal PMI Vessels: normal carotid upstroke and radial pulses present; no JVD and no carotid bruit Extremities: no edema Chest (Breasts): Chest: + pacemaker Gastrointestinal (Abdomen): normal bowel sounds, soft, nontender, no hepatosplenomegaly Musculoskeletal: no cyanosis or clubbing, extremities motor strength 5/5 Skin: no rashes, warm and dry Neurologic: PERRL, EOMI, accommodation nl, no face palsy, no dysarthria Psychiatric: A+Ox3, euthymic affect Discharge Data Allergies Allergy/AdvReac Type Severity Reaction Status Date / Time No Known Drug Allergies Allergy Unknown . Verified 01/29/20 11:26 Consultations 01/21/20 14:25 ED Decision to Admit Stat 01/21/20 16:14 Consult Cardiology Routine Procedures Performed Operation Date: 01/23/20 14:00 Actual Procedures p AV Node Ablation - Nallely Wolff DO s Interrogation of Pacer - Nallely Wolff DO Ordered Studies 01/21/20 12:40 CT head/brain wo con Stat 01/23/20 13:45 EP Lab Images for PACS ONCE Hospital Course (1) Hypertensive urgency: Hypertensive crisis Continue her usual outpatient medications of amiodarone 200 mg p.o. daily, Lasix 20 mg p.o. daily. We will increase her lisinopril back up to 20 mg p.o. daily (reduced during last admission) Hydralazine IV 5mg Q4H PRN Consult her general merchandise manager Dr Lopez: appreciate input of cardio. BP is now better controlled. S/P ablation. (2) Headache: Not acute or related to current increased BP. Reportedly started last admission. ?related to amiodarone, pantoprazole, pacemaker insertion, stopping her usual tums Acetaminophen PRN. Imaging of head thorugh CT scan is negative. resolved with one dose of NSAID. (3) Nausea: As above, headache and nausea appear to be interlinked. (4) Atrial fibrillation: Paroxysmal, currently in atrial sensed rhythm (5) Valvular heart disease: (6) Coronary artery disease of bypass graft of [place] heart with stable angina pectoris: Continue ASA, Eliquis, lisinopril, metoprolol, simvastatin (7) GERD (gastroesophageal reflux disease): Continue pantoprazole 40mg PO daily Previously taking excessive tums for years prior to last admission. (8) DVT prophylaxis: Continue her usual Eliquis 5mg PO BID Total Time Total Time Spent Total Time Spent (In Minutes): 32 Total Time Includes: Examination of the Patient, Discharge Planning and Medication Reconciliation Discharge Plan Discharge Items Patient Disposition: Home - Self-Care Reason For Visit: HYPERTENSIVE URGENCY Discharge Diagnosis: Hypertensive urgency Activity: Resume your previous activity Non-emergency contact: Primary Care Provider Call non-emergency contact if: you have any medication questions Follow-up/Referrals: Pascale Guevara MD [Primary Care Provider] - 01/29/20 11:30 am Diet: Regular Addtl Attending Provider Instructions: You have been hospitalized for an acute medical problem. During your stay at [facility], we have made an effort to correct the problem that brought you to the hospital while keeping you as comfortable as possible. Medications were used to bring your condition under control and your discharge instructions will include directions for any medications you should take after leaving the hospital. Please make sure you see your Primary Care Provider as part of your follow up plan. Pending Studies at Discharge: No Stand-Alone Forms: [facility], Smoking Cessation Medications and DC Order Prescriptions: New lisinopril 20 mg Tablet 20 mg PO QAM Qty: 30 RF: 0 Continued nitroglycerin 0.4 mg tablet, sublingual 0.4 mg SL UD PRN (Reason: Chest Pain) Qty: 25 RF: 0 timolol maleate 0.25 % drops 1 drp OPB BID RF: 0 pantoprazole [Protonix] 40 mg tablet,delayed release (DR/EC) 40 mg PO QAM Qty: 90 RF: 3 ondansetron HCl [Zofran] 4 mg tablet 4 mg PO QID PRN (Reason: nausea and vomiting) Qty: 10 RF: 0 Eliquis 5 mg tablet 5 mg PO BID RF: 0 calcium carbonate-vitamin D3 [Calcium 500 + D] 500 mg(1,250mg) -400 unit Tablet 1 tab PO QAM RF: 0 Lumigan 0.01 % drops 1 drp OPB DAILY@2300 RF: 0 simvastatin 10 mg Tablet 10 mg PO PM Qty: 30 RF: 0 furosemide 20 mg tablet 20 mg PO QAM Qty: 30 RF: 0 metoprolol succinate 50 mg Tablet Extended Release 24 Hr 50 mg PO BID Qty: 90 RF: 0 aspirin 81 mg Tablet,Delayed Release (Dr/Ec) 81 mg PO DAILY RF: 0 Discontinued amiodarone 200 mg tablet 0 mg PO BID RF: 0 lisinopril 10 mg tablet 0 mg PO QAM RF: 0 No Action hydralazine 25 mg tablet 12.5 mg PO TID RF: 0 amlodipine [Norvasc] 5 mg Tablet 5 mg PO BID Qty: 30 RF: 0 Discharge Orders: Discharge Order (Routine); Ordered 01/24/20 Ordered By: Amado Mckinley/Other Patient Handouts: Amlodipine tablets Admission Data Admit Date/Time: 01/22/20 14:49 Attending Provider: Amado Santiago Admit Provider: Jose Gutierrez Primary Care Provider: Pascale Guevara Other Providers: Jose Gutierrez ; Skip Lopez Other Interventions: Discharge Summary Assessment (RN) Last Done: 01/24/20 11:10 Coding Level of Care Code D/C Day Management >30 mins Diagnoses Hypertensive urgency I16.0 Headache R51.9 Headache chronicity pattern: unspecified pattern Headache type: unspecified Intractability: not intractable Nausea R11.0 Atrial fibrillation I48.91 Atrial fibrillation type: unspecified Valvular heart disease I38 Coronary artery disease of bypass graft of [place] heart with stable angina pectoris I25.708 GERD (gastroesophageal reflux disease) K21.9 DVT prophylaxis Z29.9
== END 2020-01-24 13:40 | disposition home or self-care (01) | DRG 274 ==
LOC: ED 11:31 → 2S 11:31 → SUATTDRO 15:20 → 2S 15:36